=== PATIENT | male | born 1995 | race Caucasian/White ===

== ENCOUNTER 2018-09-21 18:31 | Emergency (ER) | payer MEDICAID ==
[2018-09-22 21:17] VITALS: BMI 21.3
== END 2018-09-21 18:54 | disposition left against medical advice (07) ==
LOC: D.ER 18:31
DX: R50.9 Fever, unspecified (principal); E87.6 Hypokalemia; R65.10 Systemic inflammatory response syndrome (SIRS) of non-infectious origin without acute organ dysfunction; I95.9 Hypotension, unspecified

== ENCOUNTER 2018-09-21 22:12 | Inpatient (IN) | payer MEDICAID ==
[~2018-09-21] VITALS: Ht 172.7 cm; Wt 63.6 kg
[2018-09-21 22:41] LABS: BASOPHILS 0 % (0-2); EOSINOPHILS 1.3 % (0-7); HEMATOCRIT 44.1 % (42.0-54.0); HEMOGLOBIN 14.7 g/dL (13.5-17.5); IMMATURE GRANULOCYTES 0.3 % (0-5); LYMPHOCYTES 10.2 % (15-50); MCH 28.8 pg (26.0-34.0); MCHC 33.3 g/dL (31.0-37.0); MCV 86.3 fL (80.0-100.0); MEAN PLATELET VOLUME 9.1 fL (7.4-10.4); NEUTROPHILS 87.2 % (40-80); RBC 5.11 10x6/uL (4.20-6.10)
[2018-09-21 22:42] LABS: PLATELET COUNT 164 10x3/uL (130-400)
[2018-09-21 22:42] LABS: APPEARANCE TURBID (CLEAR); BACTERIA FEW /hpf (NONE SEEN); BILIRUBIN NEGATIVE (NEGATIVE); COLOR RED (YELLOW); EPITHELIAL CELLS NSEEN /hpf (0-5); GLUCOSE NEGATIVE (NEGATIVE); KETONE NEGATIVE (NEGATIVE); NITRITE NEGATIVE (NEGATIVE); PROTEIN 2+ mg/dL (NEGATIVE); RED CELLS - URINE >50 /hpf (0-5); UROBILINOGEN NORMAL (NORMAL)
[2018-09-21 22:45] VITALS: BP 92/37
[2018-09-21 22:53] LABS: ALBUMIN 3.5 g/dL (3.4-5.0); ALKALINE PHOSPHATASE 145 U/L (46-116); ALT (SGPT) 22 U/L (10-68); BILIRUBIN - TOTAL 1.66 mg/dL (0.2-1.3); CALC OSMOLALITY 284 mosm/kg (275-300); CALCIUM 8.6 mg/dL (8.5-10.1); CARBON DIOXIDE 21.7 mmol/L (21.0-32.0); CHLORIDE - SERUM 106 mmol/L (98-107); CREATININE - SERUM 1.2 mg/dL (0.6-1.3); GLUCOSE 117 mg/dL (74-106); PROTEIN - SERUM 7.2 g/dL (6.4-8.2); SODIUM 142 mmol/L (136-145); UREA NITROGEN 16 mg/dL (7-18); eGFR NON AFRICAN AMERICAN 80 mL/min (90-120)
[2018-09-21 23:15] VITALS: BP 95/38
--- NOTE | 2018-09-21 23:15 | NUR ---
BLADDER SCAN PERFORMED ON PT, 95ML NOTED PER SCANNER. EDP NOTIFIED.
[2018-09-22] VITALS (21 sets, daily range): BP systolic 70–113; BP diastolic 33–83; Ht 172.7 cm; Wt 63.6 kg
--- NOTE | 2018-09-22 00:30 | NUR ---
CRITICAL LAB-LACTIC ACID 2.4. EDP NOTIFIED. SEPSIS PROTOCOL OF NS 30ML/KG INITIATED.
--- NOTE | 2018-09-22 00:55 | NUR ---
PT AND FAMILY UPDATED ON PLAN OF CARE.
--- NOTE | 2018-09-22 01:33 | NUR ---
PT FATHER NO LONGER AT BEDSIDE. PT FATHER, BIJU, . PT MOTHER, RENE, .
--- NOTE | 2018-09-22 02:02 | NUR ---
VANCOMYCIN INFUSION COMPLETE, SECOND NS BOLUS ALSO COMPLETE.
--- NOTE | 2018-09-22 03:00 | NUR ---
Received patient from ER to 2307, connected to monitor and positioned. Initial assessment completed per flowsheet, denies needs at this time. Dr Manning paged to notify regarding consult, all VSS and will continue to monitor.
--- NOTE | 2018-09-22 07:15 | NUR ---
REPORT RECIEVED, SHIFT ASSESSMENT COMPLETE, PT IS ALERT AND ORIENTED, ON RA WITH 97% O2 SAT. ALL PPP, VSS, CALL LIGHT IN REACH
--- NOTE | 2018-09-22 09:15 | NUR ---
DR. VALDES AT BEDSIDE, NEW ORDERS RECIEVED,
[2018-09-22 09:54] LABS: HEMATOCRIT 39.8 % (42.0-54.0); HEMOGLOBIN 13.1 g/dL (13.5-17.5); MCH 28.2 pg (26.0-34.0); MCHC 32.9 g/dL (31.0-37.0); MCV 85.8 fL (80.0-100.0); MEAN PLATELET VOLUME 9.6 fL (7.4-10.4); PLATELET COUNT 138 10x3/uL (130-400); RBC 4.64 10x6/uL (4.20-6.10); RDW 14.5 % (11.5-14.5); WBC 23.4 10x3/uL (4.8-10.8)
[2018-09-22 10:10] LABS: ANION GAP 18.5 mmol/L (8-16); BILIRUBIN - TOTAL 1.9 mg/dL (0.2-1.3); CALCIUM 7.4 mg/dL (8.5-10.1); CARBON DIOXIDE 17.5 mmol/L (21.0-32.0); CREATININE - SERUM 2.4 mg/dL (0.6-1.3); PROTEIN - SERUM 5.8 g/dL (6.4-8.2)
[2018-09-22 10:11] LABS: ALBUMIN 2.6 g/dL (3.4-5.0)
[2018-09-22 10:15] LABS: LYMPHOCYTES 4 % (15-50); MONOCYTES 5 % (2-11); NEUTROPHILS 62 % (40-80); PLATELET ESTIMATE NORMAL; PLATELET MORPHOLOGY GIANT PLTS PRESENT
--- NOTE | 2018-09-22 11:00 | NUR ---
PT TO CT AT THIS TIME,
--- NOTE | 2018-09-22 13:09 | NUR ---
PT RESTING COMFORTABLY AT THIS TIME, NO NEEDS NOTED, WILL CON'T TO MONITOR
--- NOTE | 2018-09-22 15:30 | NUR ---
CATHETER PULLED BACK 6CM PER DR. ELAM, PT TOLERATED WELL, DARK UOP NOTED
--- NOTE | 2018-09-22 16:43 | NUR ---
PT TRANFERRED TO ROOM 2235, TOLERATED WELL
--- NOTE | 2018-09-22 17:00 | NUR ---
PT ARRIVED TO UNIT FROM ICU, ORIENTED TO ROOM CL IN REACH FAMILY AT BEDSIDE, REQUESTING SOME ICE BROUGHT TO PT AT THIS TIME WILL CONTINUE TO MONITOR
[2018-09-23] VITALS (7 sets, daily range): BP systolic 84–110; BP diastolic 28–72
--- NOTE | 2018-09-23 02:18 | NUR ---
CALLED TO PATIENT ROOM BY ACCOUNT DEVELOPMENT SPECIALIST FOR REPORTED B/P OF 76/35, ASSESED PATIENT PATIENT STATED PAIN AT 1010, MAIUAL B/P TAKEN 74/[address] HUMPHREY ER TAKING CALL FOR [facility] RELAYED THAT B/P 76/35, TEMP 98.1, PULSE 135, RESP. 18 PULSE OX 99, B/P WAS 84/36 P. 137, AT 1630, P 124, B/P 96/57 AT 1600, AT 1500 IT WAS P 124, B/P 106/61. ORDER GIVEN FOR 250ML BOLUIS OF LR NOW AND 1000MG TYLENOL FOR HIS PAIN. BOUTH WERE GIVEN. RECHECK OF B/P AT 2330 P REPORTED 76/35 CHECKED MANIUAL WAS 74/48 CALLED [facility]APID RESPONSE ICU NURSE CAME STATED HE HAD HAD THIS PATIENT IN ICU AND THIS WAS HIS NORMAL B/P RECHECKED WAS 89/63, ICU NURSE ADVISED OK TO GIVE MORPHIN FOR PAIN. PAIN MEDICATION GIVEN PATIENT RESTING IN BED. NO NEEDS AT THIS TIME. PRN MORPHIN GIVEN FOR STATED PAIN OF 10/10.
--- NOTE | 2018-09-23 05:44 | NUR ---
B/P 84/ RECHECK MANIUAL /
[2018-09-23 06:45] LABS: ALBUMIN 2.3 g/dL (3.4-5.0); ANION GAP 15.6 mmol/L (8-16); BILIRUBIN - TOTAL 1.7 mg/dL (0.2-1.3); CALCIUM 7.2 mg/dL (8.5-10.1); CARBON DIOXIDE 19.1 mmol/L (21.0-32.0); PROTEIN - SERUM 5.3 g/dL (6.4-8.2)
[2018-09-23 06:55] LABS: BASOPHILS 0.1 % (0-2); EOSINOPHILS 0.1 % (0-7); HEMATOCRIT 35.4 % (42.0-54.0); HEMOGLOBIN 11.6 g/dL (13.5-17.5); IMMATURE GRANULOCYTES 1.8 % (0-5); LYMPHOCYTES 6.2 % (15-50); MCH 27.8 pg (26.0-34.0); MCHC 32.8 g/dL (31.0-37.0); MCV 84.9 fL (80.0-100.0); MONOCYTES 5.8 % (2-11); PLATELET COUNT 108 10x3/uL (130-400); RBC 4.17 10x6/uL (4.20-6.10); RDW 14.8 % (11.5-14.5); WBC 22.9 10x3/uL (4.8-10.8)
[2018-09-23 06:56] LABS: CREATININE - SERUM 3.4 mg/dL (0.6-1.3); POTASSIUM - SERUM 3.7 mmol/L (3.5-5.1)
--- NOTE | 2018-09-23 08:20 | NUR ---
PT SITTING UP IN BED. RESP EVEN AND UNLABORED. IV TO LEFT AC WITH LR @ 125ML/HR INFUSING VIA PUMP. SITE WITHOUT REDNESS OR EDEMA. SALINE LOCK TO RIGHT HAND, SITE WITHOUT REDNESS OR EDEMA. DENIES FURTHER NEEDS AT THIS TIME. CL WITHIN REACH. ENCOURAGED TO CALL WITH NEEDS. WILL CONTINUE TO MONITOR.
--- NOTE | 2018-09-23 13:24 | NUR ---
REQUESTED AND GIVNE 4MG ZOFRAN FOR C/O NAUSEA AND 4MG MORPHINE SLOW IVP FOR C/O PAIN LEVEL 8. WILL MONITOR.
--- NOTE | 2018-09-23 18:57 | NUR ---
WASH DRILLER COMPLETE. PT LYING IN BED. NO SINGS OF DISTRESS NOTED.
--- NOTE | 2018-09-23 23:43 | NUR ---
2000)rec'd. sitty up in bed dry heaving. no emesis.instructed too soon for zofran and pain med, requesting orange juice.instructed the acidity of orange juice can some times may cause nausea
[2018-09-24] VITALS (7 sets, daily range): BP systolic 105–128; BP diastolic 62–95
--- NOTE | 2018-09-24 01:34 | NUR ---
PT LYING IN BED ALERT AND ORIENTED. NO SIGNS OF DISTRESS. NO NEEDS AT THIS TIME. AGREE W/ PREPAROLE COUNSELING AIDE ASSESSMENT. CL IN REACH, WILL CONTINUE TO MONITOR
[2018-09-24 05:55] LABS: BASOPHILS 0.1 % (0-2); EOSINOPHILS 0.3 % (0-7); HEMATOCRIT 34.5 % (42.0-54.0); HEMOGLOBIN 11.3 g/dL (13.5-17.5); IMMATURE GRANULOCYTES 0.9 % (0-5); MCH 27.7 pg (26.0-34.0); MCHC 32.8 g/dL (31.0-37.0); MCV 84.6 fL (80.0-100.0); MEAN PLATELET VOLUME 10.1 fL (7.4-10.4); MONOCYTES 4.5 % (2-11); NEUTROPHILS 88.2 % (40-80); PLATELET COUNT 95 10x3/uL (130-400); RBC 4.08 10x6/uL (4.20-6.10); RDW 15.1 % (11.5-14.5)
[2018-09-24 06:17] LABS: WBC 14.9 10x3/uL (4.8-10.8)
[2018-09-24 06:24] LABS: ALBUMIN 2.2 g/dL (3.4-5.0); ANION GAP 17.8 mmol/L (8-16); BILIRUBIN - TOTAL 0.77 mg/dL (0.2-1.3); CARBON DIOXIDE 19.9 mmol/L (21.0-32.0); CREATININE - SERUM 3.3 mg/dL (0.6-1.3); POTASSIUM - SERUM 3.7 mmol/L (3.5-5.1); PROTEIN - SERUM 5.7 g/dL (6.4-8.2); VANCOMYCIN - RANDOM 17.9 ug/mL (10.0-20.0)
--- NOTE | 2018-09-24 07:20 | NUR ---
PT AAOX4 RESP EVEN AND NONLABORED, NO SIGNS OF DISTRESS NOTED, REQUESTING SOMETHING FOR NAUSEA, EXPRESSED TO PT THAT HE JUST HAD SOME ZOFRAN AT 0610 THIS MORNING, GAVE PT A WET TOWEL AND EMESIS BAG AT THIS TIME WILL CONTINUE TO MONITOR, CL IN REACH
[2018-09-24 07:57] LABS: PLATELET ESTIMATE DECREASED
--- NOTE | 2018-09-24 10:39 | MORECARE ---
CASE MANAGEMENT DISCHARGE SUMMARY PATIENT: SUKHDEEP MARTE UNIT: [id number] ADM DATE: 09/21/18 AGE: 22 : [birth year] SEX: M ROOM/BED: D.2235 AUTHOR: CAT GALICIA PHYSICIAN: REFERRING PHYSICIAN: BINTA VALDES MD DATE OF SERVICE: 09/24/18 Discharge Plan Patient Name: SUKHDEEP MARTE Facility: [facility]:[place] : 1995 Planned Disposition: Home Anticipated Discharge Date: Discharge Date: Expected LOS: Initial Reviewer: [email or web address] Initial Review Date: 09/24/2018 Generated: 09/24/18 11:38 am DCPIA - Discharge Planning Initial Assessment Updated by [email or web address]: Ariadne Watts on 09/24/18 10:38 am * Is the patient Alert and Oriented? Yes * How many steps to enter\\exit or inside your home? 0/0 * PCP Dr. Thrasher in [place] * [facility]acy [facility] in [place] * Preadmission Environment Home with Family * ADLs Partial Dependent * Partial ADLs (Assistance needed) Ambulation * Equipment Hospital Bed Other Shower Chair Wheelchair * Other Equipment "I have everything I need" * List name and contact numbers for known caregivers / representatives who currently or will assist patient after discharge: Kota Marte [facility] - [phone] Brittney [facility] - [phone] * Verbal permission to speak to the caregivers and representatives has been obtained from the patient. Yes * Community resources currently utilized None * Additional services required to return to the preadmission environment? No * Can the patient safely return to the preadmission environment? Yes * Has this patient been hospitalized within the prior 30 days at any hospital? No Patient Name: SUKHDEEP MARTE Page [id number] at 1039 All edits/amendments must be made on the electronic document DICTATION DATE: 09/24/18 1038 SAP BUSINESS INTELLIGENCE CONSULTANT: EVITA 09/24/18 1038 RPT#: [id number] DC DATE: STATUS: ADM IN [facility] [address] [place] [address] END OF REPORT
--- NOTE | 2018-09-24 10:48 | MORECARE ---
CASE MANAGEMENT DISCHARGE SUMMARY PATIENT: SUKHDEEP MARTE UNIT: [id number] ADM DATE: 09/21/18 AGE: 22 : [birth year] SEX: M ROOM/BED: D.2235 AUTHOR: GRAYSON,DOC PHYSICIAN: REFERRING PHYSICIAN: BINTA VALDES MD DATE OF SERVICE: 09/24/18 Discharge Plan Patient Name: SUKHDEEP MARTE Facility: [facility]:[place] : 1995 Planned Disposition: Home Anticipated Discharge Date: Discharge Date: Expected LOS: Initial Reviewer: [email or web address] Initial Review Date: 09/24/2018 Generated: 09/24/18 11:47 am Comments DCP- Discharge Planning Updated by [email or web address]: Ariadne Watts on 09/24/18 9:[address] Patient Name: SUKHDEEP MARTE Admission Status: ER Accout number: [id number] Admission Date: 09-21-2018 : 1995 Admission Diagnosis: Attending: BINTA VALDES Current LOS: 3 Anticipated DC Date: Planned Disposition: Home Primary Insurance: MEDICAID [place] Discharge Planning Comments: CM met with patient to discuss discharge planning, he is alone in the room. He lives with his parents in [place]. His [address] is [address] I have faxed a corrected face sheet to admissions. He states he has all the DME at home he needs. States his father will drive him home on discharge. States he self propels in his wheelchair. Declines need for home health. States he goes to a urologist in [place] to have his suprapubic catheter changed. No needs currently identified. CM will continue to follow and assist with discharge planning/needs. Legal Transcriptionist: Ariadne Watts DCPIA - Discharge Planning Initial Assessment Updated by [email or web address]: Ariadne Watts on 09/24/18 10:38 am * Is the patient Alert and Oriented? Yes * How many steps to enter\\exit or inside your home? 0/0 * PCP Dr. Thrasher in [place] * Pharmacy [facility] in [place] * Preadmission Environment Home with Family * ADLs Partial Dependent * Partial ADLs (Assistance needed) Ambulation * Equipment Hospital Bed Other Shower Chair Wheelchair * Other Equipment "I have everything I need" * List name and contact numbers for known caregivers / representatives who currently or will assist patient after discharge: Kota Marte - [facility] - [phone] Brittney [facility] - [phone] * Verbal permission to speak to the caregivers and representatives has been obtained from the patient. Yes * Community resources currently utilized None * Additional services required to return to the preadmission environment? No * Can the patient safely return to the preadmission environment? Yes * Has this patient been hospitalized within the prior 30 days at any hospital? No Last DP export: 09/24/18 9:38 a Patient Name: SUKHDEEP MARTE Page [phone] at 1048 All edits/amendments must be made on the electronic document DICTATION DATE: 09/24/181046 BUS VAN DRIVER: EVITA 09/24/18 1047 RPT#: [id number] [place] DATE: STATUS: ADM IN [facility] [address] [place] [address] END OF REPORT
--- NOTE | 2018-09-24 20:30 | NUR ---
PT RESTING IN BED. ALERT AND ORIENTED. PT STATES NO PROBLEMS AT THI TIME.
--- NOTE | 2018-09-25 03:12 | NUR ---
EYES CLOSED RESPIRATIONS WITH EASE AND UNLABORED. SR UP X2 CALL LIGHT WITHIN REACH.
[2018-09-25 04:33] VITALS: BP 135/90
[2018-09-25 06:13] LABS: BASOPHILS 0.1 % (0-2); EOSINOPHILS 0 % (0-7); HEMATOCRIT 37.2 % (42.0-54.0); HEMOGLOBIN 12.1 g/dL (13.5-17.5); IMMATURE GRANULOCYTES 0.7 % (0-5); LYMPHOCYTES 4.9 % (15-50); MCH 27.8 pg (26.0-34.0); MCHC 32.5 g/dL (31.0-37.0); MCV 85.5 fL (80.0-100.0); MEAN PLATELET VOLUME 11.4 fL (7.4-10.4); MONOCYTES 4.4 % (2-11); NEUTROPHILS 89.9 % (40-80); RBC 4.35 10x6/uL (4.20-6.10); RDW 15.2 % (11.5-14.5); WBC 16.7 10x3/uL (4.8-10.8)
[2018-09-25 06:18] LABS: PLATELET COUNT 131 10x3/uL (130-400)
[2018-09-25 06:48] LABS: ALBUMIN 2.3 g/dL (3.4-5.0); ANION GAP 18.1 mmol/L (8-16); BILIRUBIN - TOTAL 0.38 mg/dL (0.2-1.3); CALCIUM 7.8 mg/dL (8.5-10.1); CARBON DIOXIDE 18.8 mmol/L (21.0-32.0); CREATININE - SERUM 2.7 mg/dL (0.6-1.3); POTASSIUM - SERUM 3.9 mmol/L (3.5-5.1); PROTEIN - SERUM 5.4 g/dL (6.4-8.2)
--- NOTE | 2018-09-25 08:26 | OP ---
PATIENT NAME: SUKHDEEP BATRES MEDICAL RECORD: [id number] :[birth year] LOCATION:D.MS [address] ADMISSION DATE:09/21/18 SURGEON: GUME BURGOS MD DATE OF OPERATION: 09/24/2018 SURGEON: Gume Burgos MD ANESTHESIA: General anesthesia by Zac Orozco CRNA. DIAGNOSES: Cystitis, left pyelonephritis, infected left ureteral stent, infected suprapubic tube. PROCEDURES: Cystoscopy, left retrograde pyelogram, exchange of 26-Chinese x 22 cm left ureteral stent without string attached and change of the suprapubic tube to an 18-Chinese silicone tube. FINDINGS: Urethral trauma from a previous Rangel catheter balloon inflation in the urethra. A retrograde pyelogram showed left hydroureteronephrosis all the way down to the UV junction. The patient has fecal incontinence. BLOOD LOSS: None. CLINICAL HISTORY: This is a 22-year-old male with spina bifida. He has a neurogenic bladder. He has bilateral hydroureteronephrosis. He has a urologist in [place]. This urologist has been managing him with every monthly changes of an indwelling left ureteral stent. I am not sure why the left ureter was chosen for this treatment and not also the right. Personally, I would not have a stent in there at all and I would treat the hypertonic bladder with intravesical Botox injection to try to resolve the hydronephrosis. However, I did not wish to contraindicate what his current urologist is doing as the patient is insistent that he needs to have a left ureteral stent in there at all times. Therefore, since he is infected and he is currently on IV antibiotics, we are now arranging to change his left ureteral stent and his suprapubic tube. He is on IV Levaquin and vancomycin. His urine and blood cultures are growing E. coli and a gram-positive organism. Since he is already on IV antibiotics on the floor, we did not give him any further IV antibiotics. DESCRIPTION OF PROCEDURE: The patient was placed in supine position on the table. He was given induction of general anesthesia. We then placed his atrophic legs into stirrups. The perineum as well as the suprapubic area was prepped and draped. The patient has latex allergy. Cystoscopy was performed using a 21-Chinese cystoscope. The area of urethral trauma where a previous suprapubic catheter had gone down the urethra and had the balloon inadvertently inflated in the urethra was noted. This had been done at the Emergency Room at [facility]. We navigated into the bladder. The old ureteral stent was seen. It was yellow in color. Grasping forceps were placed around the stent and it was removed entirely. It will be sent to pathology for identification. An open-ended ureteral catheter was then inserted into the left ureteral orifice. We performed a retrograde pyelogram. No filling defects were seen. 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 We then inserted a Sensor wire up into the left renal pelvis. Once the wire was in position, the open-ended ureteral catheter was removed entirely. Over the wire, we inserted the 6-Chinese x 22 cm ureteral stent. Once the stent was in correct position, the wire was withdrawn entirely. The distal end of the stent was OPERATIVE REPORT [id number] SUKHDEEP BATRES pushed into the bladder using the pusher. We then turned the scope and looked up in anterior wall of the bladder. Here, we could see the suprapubic tube in good position with a lot of debris attached to it. The old suprapubic tube balloon was deflated and the tube was entirely removed. A brand new 18-Chinese silicone catheter was inserted into the suprapubic tube tract. Under direct vision with the scope, we could see the catheter enter into the bladder. The balloon was then inflated with 10 cc of sterile water. It was located in good position. The scope was then removed. The patient had the suprapubic tube put to bag drainage. He is planning to return to his urologist in [place] for future management. TRANSINT:[id number] Voice Confirmation ID: [id number] DOCUMENT ID: [id number] GUME BURGOS MD at 0826 CC: [id number] DICTATION DATE: 09/24/18 1459 INDUSTRIAL RELATIONS ANALYST: 09/24/18 1554 ADM IN [facility] [address] [place] [address]
[2018-09-25 09:00] VITALS: BP 134/90
[2018-09-25 13:56] VITALS: BP 122/87
--- NOTE | 2018-09-25 15:55 | MORECARE ---
CASE MANAGEMENT DISCHARGE SUMMARY PATIENT: SUKHDEEP MARTE UNIT: [id number] ADM DATE: 09/21/18 AGE: 22 : [birth year] SEX: M ROOM/BED: D.2235 AUTHOR: GRAYSON,DOC PHYSICIAN: REFERRING PHYSICIAN: BINTA VALDES MD DATE OF SERVICE: 09/25/18 Discharge Plan Patient Name: SUKHDEEP MARTE Facility: [facility]:[place] : 1995 Planned Disposition: Home Anticipated Discharge Date: Discharge Date: Expected LOS: Initial Reviewer: [email or web address] Initial Review Date: 09/24/2018 Generated: 09/25/18 4:55 pm Comments DCP- Discharge Planning Updated by [email or web address]: Ariadne Watts on 09/25/18 2:[address] Met with patient about home health services in [facility] [place]. He states he will need to talk to his dad and let me know which one to use. I left him my phone number to call me when he has picked out a home health. Explained he will need IV antibiotics post discharge. CM will continue to follow and assist with discharge planning/needs. DCP- Discharge Planning Updated by [email or web address]: Ariadne Watts on 09/24/18 9:[address] Patient Name: SUKHDEEP MARTE Admission Status: ER Accout number: [id number] Admission Date: 09-21-2018 : 1995 Admission Diagnosis: Attending: BINTA VALDES Current LOS: 3 Anticipated DC Date: Planned Disposition: Home Primary Insurance: MEDICAID [place] Discharge Planning Comments: CM met with patient to discuss discharge planning, he is alone in the room. He lives with his parents in [place]. His address is [address] I have faxed a corrected face sheet to admissions. He states he has all the DME at home he needs. States his father will drive him home on discharge. States he self propels in his wheelchair. Declines need for home health. States he goes to a urologist in [place] to have his suprapubic catheter changed. No needs currently identified. CM will continue to follow and assist with discharge planning/needs. Granulator: Ariadne Watts DCPIA - Discharge Planning Initial Assessment Updated by [email or web address]: Ariadne Watts on 09/24/18 10:38 am * Is the patient Alert and Oriented? Yes * How many steps to enter\\exit or inside your home? 0/0 * PCP Dr. Thrasher in [place] * Pharmacy [facility] in [place] * Preadmission Environment Home with Family * ADLs Partial Dependent * Partial ADLs (Assistance needed) Ambulation * Equipment Hospital Bed Other Shower Chair Wheelchair * Other Equipment "I have everything I need" * List name and contact numbers for known caregivers / representatives who currently or will assist patient after discharge: Kota Marte father - [phone] Brittney - mom - [phone] * Verbal permission to speak to the caregivers and representatives has been obtained from the patient. Yes * Community resources currently utilized None * Additional services required to return to the preadmission environment? No * Can the patient safely return to the preadmission environment? Yes * Has this patient been hospitalized within the prior 30 days at any hospital? No Last DP export: 09/24/18 9:48 a Patient Name: SUKHDEEP MARTE Page [id number] at 1555 All edits/amendments must be made on the electronic document DICTATION DATE: 09/25/181553 CERAMIC COATER: EVITA 09/25/181553 RPT#: [id number] DC DATE: STATUS: ADM IN [facility] [address] [place] [address] END OF REPORT
[2018-09-25 17:12] VITALS: BP 134/94
[2018-09-26 05:57] LABS: BASOPHILS 0.1 % (0-2); HEMATOCRIT 36.7 % (42.0-54.0); LYMPHOCYTES 20.1 % (15-50); MCH 27.5 pg (26.0-34.0); MCHC 32.7 g/dL (31.0-37.0); MCV 84.2 fL (80.0-100.0); MEAN PLATELET VOLUME 10.6 fL (7.4-10.4); MONOCYTES 10.7 % (2-11); NEUTROPHILS 67.1 % (40-80); PLATELET COUNT 144 10x3/uL (130-400); RBC 4.36 10x6/uL (4.20-6.10); RDW 15.1 % (11.5-14.5)
[2018-09-26 06:23] LABS: ALBUMIN 2.1 g/dL (3.4-5.0); BILIRUBIN - TOTAL 0.19 mg/dL (0.2-1.3); CALCIUM 7.4 mg/dL (8.5-10.1); CARBON DIOXIDE 22.8 mmol/L (21.0-32.0); PROTEIN - SERUM 5.6 g/dL (6.4-8.2)
[2018-09-26 06:28] LABS: ANION GAP 15.5 mmol/L (8-16); POTASSIUM - SERUM 3.3 mmol/L (3.5-5.1)
[2018-09-26 06:36] LABS: WBC 10.5 10x3/uL (4.8-10.8)
[2018-09-26 08:46] VITALS: BP 144/56
--- NOTE | 2018-09-26 11:09 | MORECARE ---
CASE MANAGEMENT DISCHARGE SUMMARY PATIENT: SUKHDEEP MARTE UNIT: [id number] ADM DATE: 09/21/18 AGE: 22 : [birth year] SEX: M ROOM/BED: D.2235 AUTHOR: GRAYSON,DOC PHYSICIAN: REFERRING PHYSICIAN: BINTA VALDES MD DATE OF SERVICE: 09/26/18 Discharge Plan Patient Name: SUKHDEEP MARTE Facility: [facility]:[place] : 1995 Planned Disposition: Home Anticipated Discharge Date: Discharge Date: Expected LOS: Initial Reviewer: [email or web address] Initial Review Date: 09/24/2018 Generated: 09/26/18 12:08 pm Comments DCP- Discharge Planning Updated by [email or web address]: Ariadne Watts on 09/25/18 2:[address] Met with patient about home health services in [facility]. He states he will need to talk to his dad and let me know which one to use. I left him my phone number to call me when he has picked out a home health. Explained he will need IV antibiotics post discharge. CM will continue to follow and assist with discharge planning/needs. DCP- Discharge Planning Updated by [email or web address]: Ariadne Watts on 09/24/18 9:[address] Patient Name: SUKHDEEP MARTE Admission Status: ER Accout number: [id number] Admission Date: 09-21-2018 : 1995 Admission Diagnosis: Attending: BINTA VALDES Current LOS: 3 Anticipated DC Date: Planned Disposition: Home Primary Insurance: MEDICAID [place] Discharge Planning Comments: CM met with patient to discuss discharge planning, he is alone in the room. He lives with his parents in [place]. His address is [address] I have faxed a corrected face sheet to admissions. He states he has all the DME at home he needs. States his father will drive him home on discharge. States he self propels in his wheelchair. Declines need for home health. States he goes to a urologist in [place] to have his suprapubic catheter changed. No needs currently identified. CM will continue to follow and assist with discharge planning/needs. Building Service Worker: Ariadne Watts DCPIA - Discharge Planning Initial Assessment Updated by [email or web address]: Ariadne Watts on 09/24/18 10:38 am * Is the patient Alert and Oriented? Yes * How many steps to enter\\exit or inside your home? 0/0 * PCP Dr. Thrasher in [place] * [facility]acy [facility] in [place] * Preadmission Environment Home with Family * ADLs Partial Dependent * Partial ADLs (Assistance needed) Ambulation * Equipment Hospital Bed Other Shower Chair Wheelchair * Other Equipment "I have everything I need" * List name and contact numbers for known caregivers / representatives who currently or will assist patient after discharge: Kota Marte father - [phone] [facility] [phone] * Verbal permission to speak to the caregivers and representatives has been obtained from the patient. Yes * Community resources currently utilized None * Additional services required to return to the preadmission environment? No * Can the patient safely return to the preadmission environment? Yes * Has this patient been hospitalized within the prior 30 days at any hospital? No External Providers External Provider: OTHER-OTHER Next Contact Date: Service Request Date: Service Type: Resolution: Reviewer: Comments: Last DP export: 09/25/18 2:55 p Patient Name: SUKHDEEP MARTE Page [id number] at 1109 All edits/amendments must be made on the electronic document DICTATION DATE: 09/26/181107 FIBERGLASS DOWEL DRAWING OPERATOR: EVITA 09/26/181107 RPT#: [id number] MT DATE: STATUS: ADM IN [facility] [address] [place] [address] END OF REPORT
--- NOTE | 2018-09-26 11:17 | MORECARE ---
CASE MANAGEMENT DISCHARGE SUMMARY PATIENT: SUKHDEEP MARTE UNIT: [id number] ADM DATE: 09/21/18 AGE: 22 : [birth year] SEX: M ROOM/BED: D.2235 AUTHOR: GRAYSON,DOC PHYSICIAN: REFERRING PHYSICIAN: BINTA VALDES MD DATE OF SERVICE: 09/26/18 Discharge Plan Patient Name: SUKHDEEP MARTE Facility: [facility]:[place] : 1995 Planned Disposition: Home Anticipated Discharge Date: Discharge Date: Expected LOS: Initial Reviewer: [email or web address] Initial Review Date: 09/24/2018 Generated: 09/26/18 12:16 pm Comments DCP- Discharge Planning Updated by [email or web address]: Ariadne Watts on 09/26/18 10:[address] Met with patient, he is in agreement to [facility] in [place]. He and his mother state that they will need the most economical company for IV company. I will mancilla that out and give them a quote. I called and spoke to Gisselle at [facility] in [place] and clinical faxed. Gisselle states they do have a Medicaid slot available. CM will continue to follow and assist with discharge planning/needs. [facility] in [place]: Gisselle DCP- Discharge Planning Updated by [email or web address]: Ariadne Watts on 09/25/18 2:[address] Met with patient about home health services in [facility]. He states he will need to talk to his dad and let me know which one to use. I left him my phone number to call me when he has picked out a home health. Explained he will need IV antibiotics post discharge. CM will continue to follow and assist with discharge planning/needs. DCP- Discharge Planning Updated by [email or web address]: Ariadne Watts on 09/24/18 9:[address] Patient Name: SUKHDEEP MARTE Admission Status: ER Accout number: [id number] Admission Date: 09-21-2018 : 1995 Admission Diagnosis: Attending: BINTA VALDES Current LOS: 3 Anticipated DC Date: Planned Disposition: Home Primary Insurance: MEDICAID [place] Discharge Planning Comments: CM met with patient to discuss discharge planning, he is alone in the room. He lives with his parents in [place]. His [address] is [address] I have faxed a corrected face sheet to admissions. He states he has all the DME at home he needs. States his father will drive him home on discharge. States he self propels in his wheelchair. Declines need for home health. States he goes to a urologist in [place] to have his suprapubic catheter changed. No needs currently identified. CM will continue to follow and assist with discharge planning/needs. Senior Facilities Manager: Ariadne Watts [facility] - Discharge Planning Initial Assessment Updated by [email or web address]: Ariadne Watts on 09/24/18 10:38 am * Is the patient Alert and Oriented? Yes * How many steps to enter\\exit or inside your home? 0/0 * PCP Dr. Thrasher in [place] * Pharmacy [facility] in [place] * Preadmission Environment Home with Family * ADLs Partial Dependent * Partial ADLs (Assistance needed) Ambulation * Equipment Hospital Bed Other Shower Chair Wheelchair * Other Equipment "I have everything I need" * List name and contact numbers for known caregivers / representatives who currently or will assist patient after discharge: Kota Marte - father - [phone] Brittney - mom - [phone] * Verbal permission to speak to the caregivers and representatives has been obtained from the patient. Yes * Community resources currently utilized None * Additional services required to return to the preadmission environment? No * Can the patient safely return to the preadmission environment? Yes * Has this patient been hospitalized within the prior 30 days at any hospital? No Last DP export: 09/26/18 10:08 a Patient Name: SUKHDEEP MARTE Page 70232 at 1117 All edits/amendments must be made on the electronic document DICTATION DATE: 09/26/181115 EPIC CUPID ANALYST: EVITA 09/26/181115 RPT#: [id number] NC DATE: STATUS: ADM IN [facility] [address] [place] [address] END OF REPORT
[2018-09-26 12:46] VITALS: BP 143/101
--- NOTE | 2018-09-26 14:05 | MORECARE ---
CASE MANAGEMENT DISCHARGE SUMMARY PATIENT: SUKHDEEP MARTE UNIT: [id number] ADM DATE: 09/21/18 AGE: 22 : [birth year] SEX: M ROOM/BED: D.2235 AUTHOR: GRAYSON,DOC PHYSICIAN: REFERRING PHYSICIAN: BINTA VALDES MD DATE OF SERVICE: 09/26/18 Discharge Plan Patient Name: SUKHDEEP MARTE Facility: [facility]:[place] : 1995 Planned Disposition: Home Anticipated Discharge Date: Discharge Date: Expected LOS: Initial Reviewer: [email or web address] Initial Review Date: 09/24/2018 Generated: 09/26/18 3:05 pm Comments DCP- Discharge Planning Updated by [email or web address]: Ariadne Watts on 09/26/18 1:[address] I called Gisselle with [facility] and informed her Dr. Thrasher was patient's PCP. I also informed her again that we do not have a specific order written yet for home antibiotics, I spoke with Dr. Prakash and she may have a plan tomorrow after monitoring clinical response to therapy. CM will continue to follow and assist with discharge planning/needs. DCP- Discharge Planning Updated by [email or web address]: Ariadne Watts on 09/26/18 10:[address] Met with patient, he is in agreement to [facility] in [place]. He and his mother state that they will need the most economical company for IV company. I will mancilla that out and give them a quote. I called and spoke to Gisselle at [facility] in [place] and clinical faxed. Gisselle states they do have a Medicaid slot available. CM will continue to follow and assist with discharge planning/needs. [facility] in [place]: Gisselle DCP- Discharge Planning Updated by [email or web address]: Ariadne Watts on 09/25/18 2:[address] Met with patient about home health services in [facility]. He states he will need to talk to his dad and let me know which one to use. I left him my phone number to call me when he has picked out a home health. Explained he will need IV antibiotics post discharge. CM will continue to follow and assist with discharge planning/needs. DCP- Discharge Planning Updated by [email or web address]: Ariadne Gileslucie on 09/24/18 9:[address] Patient Name: SUKHDEEP MARTE Admission Status: ER Accout number: [id number] Admission Date: 09-21-2018 : 1995 Admission Diagnosis: Attending: BINTA VALDES Current LOS: 3 Anticipated DC Date: Planned Disposition: Home Primary Insurance: MEDICAID [place] Discharge Planning Comments: CM met with patient to discuss discharge planning, he is alone in the room. He lives with his parents in [place]. His address is [address] I have faxed a corrected face sheet to admissions. He states he has all the DME at home he needs. States his father will drive him home on discharge. States he self propels in his wheelchair. Declines need for home health. States he goes to a urologist in [place] to have his suprapubic catheter changed. No needs currently identified. CM will continue to follow and assist with discharge planning/needs. Logistics Engineering Manager: Ariadne Mac DCP[facility] - Discharge Planning Initial Assessment Updated by [email or web address]: Ariadne Watts on 09/24/18 10:38 am * Is the patient Alert and Oriented? Yes * How many steps to enter\\exit or inside your home? 0/0 * PCP Dr. Thrasher in [place] * Pharmacy [facility] in [place] * Preadmission Environment Home with Family * ADLs Partial Dependent * Partial ADLs (Assistance needed) Ambulation * Equipment Hospital Bed Other Shower Chair Wheelchair * Other Equipment "I have everything I need" * List name and contact numbers for known caregivers / representatives who currently or will assist patient after discharge: Kota Marte - father - [phone] [facility] mom - [phone] * Verbal permission to speak to the caregivers and representatives has been obtained from the patient. Yes * Community resources currently utilized None * Additional services required to return to the preadmission environment? No * Can the patient safely return to the preadmission environment? Yes * Has this patient been hospitalized within the prior 30 days at any hospital? No Last DP export: 09/26/18 10:17 a Patient Name: SUKHDEEP MARTE Page 65929 at 1405 All edits/amendments must be made on the electronic document DICTATION DATE: 09/26/181404 PHARMACY DISTRICT MANAGER: EVITA 09/26/181404 RPT#: [id number] DC DATE: STATUS: ADM IN [facility] [address] [place] [address] END OF REPORT
[2018-09-26 21:37] VITALS: BP 139/101
[2018-09-27 04:51] LABS: BASOPHILS 0.3 % (0-2); EOSINOPHILS 2.5 % (0-7); HEMATOCRIT 38.3 % (42.0-54.0); HEMOGLOBIN 12.7 g/dL (13.5-17.5); LYMPHOCYTES 28.3 % (15-50); MCH 27.9 pg (26.0-34.0); MCHC 33.2 g/dL (31.0-37.0); MEAN PLATELET VOLUME 10.2 fL (7.4-10.4); MONOCYTES 12.8 % (2-11); NEUTROPHILS 54.1 % (40-80); PLATELET COUNT 163 10x3/uL (130-400); RBC 4.56 10x6/uL (4.20-6.10); RDW 15.1 % (11.5-14.5); WBC 9.1 10x3/uL (4.8-10.8)
[2018-09-27 05:01] VITALS: BP 117/72
[2018-09-27 05:11] LABS: ALBUMIN 2.2 g/dL (3.4-5.0); ANION GAP 16.5 mmol/L (8-16); BILIRUBIN - TOTAL 0.46 mg/dL (0.2-1.3); CALCIUM 7.1 mg/dL (8.5-10.1); CARBON DIOXIDE 24.7 mmol/L (21.0-32.0); CREATININE - SERUM 1.8 mg/dL (0.6-1.3); POTASSIUM - SERUM 3.2 mmol/L (3.5-5.1); PROTEIN - SERUM 6.1 g/dL (6.4-8.2)
[2018-09-27 10:04] VITALS: BP 132/95; BP 141/94
--- NOTE | 2018-09-27 13:12 | NUR ---
ALERT AND ORIENTED AND COMPLAINING OF FLANK PAIN WITH ZOFRAN GIVEN FOR NAUSEA AND FENTANYL PATCH FOR PAIN WITH PATIENT STILL COMPLAINING OF BOTH. WILL NOTIFY MD OF CONDITION. ENCOURAGED TO USE CALL LIGHT FOR ASSIST.
--- NOTE | 2018-09-27 13:38 | MORECARE ---
CASE MANAGEMENT DISCHARGE SUMMARY PATIENT: SUKHDEEP MARTE UNIT: [id number] ADM DATE: 09/21/18 AGE: 22 : [birth year] SEX: M ROOM/BED: D.2235 AUTHOR: GRAYSON,DOC PHYSICIAN: REFERRING PHYSICIAN: BINTA VALDES MD DATE OF SERVICE: 09/27/18 Discharge Plan Patient Name: SUKHDEEP MARTE Facility: [facility]:[place] : 1995 Planned Disposition: Home Anticipated Discharge Date: Discharge Date: Expected LOS: Initial Reviewer: [email or web address] Initial Review Date: 09/24/2018 Generated: 09/27/18 2:38 pm Comments DCP- Discharge Planning Updated by [email or web address]: Ariadne Watts on 09/26/18 1:[address] I called Gisselle with [facility] and informed her Dr. Thrasher was patient's PCP. I also informed her again that we do not have a specific order written yet for home antibiotics, I spoke with Dr. Prakash and she may have a plan tomorrow after monitoring clinical response to therapy. CM will continue to follow and assist with discharge planning/needs. DCP- Discharge Planning Updated by [email or web address]: Ariadne Watts on 09/26/18 10:[address] Met with patient, he is in agreement to [facility] in [place]. He and his mother state that they will need the most economical company for IV company. I will mancilla that out and give them a quote. I called and spoke to Gisselle at [facility] in [place] and clinical faxed. Gisselle states they do have a Medicaid slot available. CM will continue to follow and assist with discharge planning/needs. [facility] in [place]: Gisselle DCP- Discharge Planning Updated by [email or web address]: Ariadne Watts on 09/25/18 2:[address] Met with patient about home health services in [facility]. He states he will need to talk to his dad and let me know which one to use. I left him my phone number to call me when he has picked out a home health. Explained he will need IV antibiotics post discharge. CM will continue to follow and assist with discharge planning/needs. DCP- Discharge Planning Updated by [email or web address]: Ariadne Gileslucie on 09/24/18 9:[address] Patient Name: SUKHDEEP MARTE Admission Status: ER Accout number: [id number] Admission Date: 09-21-2018 : 1995 Admission Diagnosis: Attending: BINTA VALDES Current LOS: 3 Anticipated DC Date: Planned Disposition: Home Primary Insurance: MEDICAID [place] Discharge Planning Comments: CM met with patient to discuss discharge planning, he is alone in the room. He lives with his parents in [place]. His address is [address] I have faxed a corrected face sheet to admissions. He states he has all the DME at home he needs. States his father will drive him home on discharge. States he self propels in his wheelchair. Declines need for home health. States he goes to a urologist in [place] to have his suprapubic catheter changed. No needs currently identified. CM will continue to follow and assist with discharge planning/needs. Ultimate Hoops Referee: Ariadne Mac DCPIA - Discharge Planning Initial Assessment Updated by [email or web address]: Ariadne Mac on 09/24/18 10:38 am * Is the patient Alert and Oriented? Yes * How many steps to enter\\exit or inside your home? 0/0 * PCP Dr. Thrasher in [place] * Pharmacy [facility] in [place] * Preadmission Environment Home with Family * ADLs Partial Dependent * Partial ADLs (Assistance needed) Ambulation * Equipment Hospital Bed Other Shower Chair Wheelchair * Other Equipment "I have everything I need" * List name and contact numbers for known caregivers / representatives who currently or will assist patient after discharge: Kota Marte - father - [phone] [facility] - [phone] * Verbal permission to speak to the caregivers and representatives has been obtained from the patient. Yes * Community resources currently utilized None * Additional services required to return to the preadmission environment? No * Can the patient safely return to the preadmission environment? Yes * Has this patient been hospitalized within the prior 30 days at any hospital? No External Providers External Provider: [facility] Next Contact Date: Service Request Date: Service Type: Resolution: Reviewer: Comments: External Provider: [facility] Next Contact Date: Service Request Date: Service Type: Resolution: Reviewer: Comments: Last DP export: 09/26/18 1:05 p Patient Name: SUKHDEEP MARTE Page 58528 at 1338 All edits/amendments must be made on the electronic document DICTATION DATE: 09/27/181336 CLINICAL BUSINESS ANALYST: EVITA 09/27/181336 RPT#: [id number] DC DATE: STATUS: ADM IN [facility] [address] [place] [address] END OF REPORT
--- NOTE | 2018-09-27 13:40 | NUR ---
NURSE PRACTICIONER NOTIFIED OF PAIN AND STATED WOULDE REVIEW FOR FURTHER ORDERS.
--- NOTE | 2018-09-27 13:48 | MORECARE ---
CASE MANAGEMENT DISCHARGE SUMMARY PATIENT: SUKHDEEP MARTE UNIT: [id number] ADM DATE: 09/21/18 AGE: 22 : [birth year] SEX: M ROOM/BED: D.2235 AUTHOR: GRAYSON,DOC PHYSICIAN: REFERRING PHYSICIAN: BINTA VALDES MD DATE OF SERVICE: 09/27/18 Discharge Plan Patient Name: SUKHDEEP MARTE Facility: [facility]:[place] : 1995 Planned Disposition: Home Anticipated Discharge Date: Discharge Date: Expected LOS: Initial Reviewer: [email or web address] Initial Review Date: 09/24/2018 Generated: 09/27/18 2:47 pm Comments DCP- Discharge Planning Updated by [email or web address]: Ariadne Watts on 09/27/18 12:[address] IV antibiotic order received from Dr. Prakash's office nurse. I faxed it to [place] and [place] and spoke to Liana for mancilla quotes. I faxed order to [facility] in [place] and spoke with Loren, they can see in am if discharged today for next dose of rocephin. CM will continue to follow and assist with discharge planning/needs. DCP- Discharge Planning Updated by [email or web address]: Ariadne Watts on 09/26/18 1:[address] I called Gisselle with [facility] and informed her Dr. Thrasher was patient's PCP. I also informed her again that we do not have a specific order written yet for home antibiotics, I spoke with Dr. Prakash and she may have a plan tomorrow after monitoring clinical response to therapy. CM will continue to follow and assist with discharge planning/needs. DCP- Discharge Planning Updated by [id number]: Ariadne Watts on 09/26/18 10:[address] Met with patient, he is in agreement to [facility] in [place]. He and his mother state that they will need the most economical company for IV company. I will mancilla that out and give them a quote. I called and spoke to Gisselle at [facility] in [place] and clinical faxed. Gisselle states they do have a Medicaid slot available. CM will continue to follow and assist with discharge planning/needs. [facility] in [place]: Gisselle DCP- Discharge Planning Updated by [email or web address]: Ariadne Watts on 09/25/18 2:[address] Met with patient about home health services in [facility]. He states he will need to talk to his dad and let me know which one to use. I left him my phone number to call me when he has picked out a home health. Explained he will need IV antibiotics post discharge. CM will continue to follow and assist with discharge planning/needs. DCP- Discharge Planning Updated by [email or web address]: Ariadne Watts on 09/24/18 9:[address] Patient Name: SUKHDEEP MARTE Admission Status: ER Accout number: [id number] Admission Date: 09-21-2018 : 1995 Admission Diagnosis: Attending: BINTA VALDES Current LOS: 3 Anticipated DC Date: Planned Disposition: Home Primary Insurance: [place]ID [place] Discharge Planning Comments: CM met with patient to discuss discharge planning, he is alone in the room. He lives with his parents in [place]. His address is [address]. I have faxed a corrected face sheet to admissions. He states he has all the DME at home he needs. States his father will drive him home on discharge. States he self propels in his wheelchair. Declines need for home health. States he goes to a urologist in [place] to have his suprapubic catheter changed. No needs currently identified. CM will continue to follow and assist with discharge planning/needs. Post Anesthesia Nurse: Ariadne Watts DCPIA - Discharge Planning Initial Assessment Updated by [email or web address]: Ariadne Watts on 09/24/18 10:38 am * Is the patient Alert and Oriented? Yes * How many steps to enter\\exit or inside your home? 0/0 * PCP Dr. Thrasher in [place] * Pharmacy [facility] in [place] * Preadmission Environment Home with Family * ADLs Partial Dependent * Partial ADLs (Assistance needed) Ambulation * Equipment Hospital Bed Other Shower Chair Wheelchair * Other Equipment "I have everything I need" * List name and contact numbers for known caregivers / representatives who currently or will assist patient after discharge: Kota Marte - father - [phone] Brittney Sheffield mom - [phone] * Verbal permission to speak to the caregivers and representatives has been obtained from the patient. Yes * Community resources currently utilized None * Additional services required to return to the preadmission environment? No * Can the patient safely return to the preadmission environment? Yes * Has this patient been hospitalized within the prior 30 days at any hospital? No Last DP export: 09/27/18 12:38 p Patient Name: SUKHDEEP MARTE Page 05690 at 1348 All edits/amendments must be made on the electronic document DICTATION DATE: 09/27/18 1347 ORACLE APPLICATIONS DEVELOPER: EVITA 09/27/18 1347 RPT#: [id number] DC DATE: STATUS: ADM IN [facility] [address] [place] [address] END OF REPORT
[2018-09-27 14:49] VITALS: BP 124/84
--- NOTE | 2018-09-27 15:43 | MORECARE ---
CASE MANAGEMENT DISCHARGE SUMMARY PATIENT: SUKHDEEP MARTE UNIT: [id number] ADM DATE: 09/21/18 AGE: 22 : [birth year] SEX: M ROOM/BED: D.2235 AUTHOR: GRAYSON,DOC PHYSICIAN: REFERRING PHYSICIAN: BINTA VALDES MD DATE OF SERVICE: 09/27/18 Discharge Plan Patient Name: SUKHDEEP MARTE Facility: [facility]:[place] : 1995 Planned Disposition: Home Anticipated Discharge Date: Discharge Date: Expected LOS: Initial Reviewer: [email or web address] Initial Review Date: 09/24/2018 Generated: 09/27/18 4:43 pm Comments DCP- Discharge Planning Updated by [email or web address]: Ariadne Watts on 09/27/18 2:[address] Received a call from Isis with [facility] and she states they will be unable to supply antibiotics to the patient because he lives in [place]. States that [facility] in [place] may be able to supply the antibiotic. The number to [facility] is [phone]. I do still have the referral out to [place] [facility] states they are still working on mancilla quote and availability to supply. CM will continue to follow and assist with discharge planning/needs. DCP- Discharge Planning Updated by [email or web address]: Ariadne Watts on 09/27/18 12:[address] IV antibiotic order received from Dr. Prakash's office nurse. I faxed it to [place] [facility] [place] and spoke to Liana for mancilla quotes. I faxed order to [facility] in [place] and spoke with Loren, they can see in am if discharged today for next dose of rocephin. CM will continue to follow and assist with discharge planning/needs. DCP- Discharge Planning Updated by [email or web address]: Ariadne Watts on 09/26/18 1:[address] I called Gisselle with [facility] and informed her Dr. Thrasher was patient's PCP. I also informed her again that we do not have a specific order written yet for home antibiotics, I spoke with Dr. Prakash and she may have a plan tomorrow after monitoring clinical response to therapy. CM will continue to follow and assist with discharge planning/needs. DCP- Discharge Planning Updated by [email or web address]: Ariadne Mac on 09/26/18 10:[address] Met with patient, he is in agreement to [facility] in [place]. He and his mother state that they will need the most economical company for IV company. I will mancilla that out and give them a quote. I called and spoke to Gisselle at [facility] in [place] and clinical faxed. Gisselle states they do have a Medicaid slot available. CM will continue to follow and assist with discharge planning/needs. [facility] in [place]: Gisselle DCP- Discharge Planning Updated by [email or web address]: Ariadne Mac on 09/25/18 2:[address] Met with patient about home health services in [facility]. He states he will need to talk to his dad and let me know which one to use. I left him my phone number to call me when he has picked out a home health. Explained he will need IV antibiotics post discharge. CM will continue to follow and assist with discharge planning/needs. DCP- Discharge Planning Updated by [id number]: Ariadne Watts on 09/24/18 9:[address] Patient Name: SUKHDEEP MARTE Admission Status: ER Accout number: [id number] Admission Date: 09-21-2018 : 1995 Admission Diagnosis: Attending: BINTA VALDES Current LOS: 3 Anticipated DC Date: Planned Disposition: Home Primary Insurance: MEDICAID [place] Discharge Planning Comments: CM met with patient to discuss discharge planning, he is alone in the room. He lives with his parents in [place]. His address is [address]. I have faxed a corrected face sheet to admissions. He states he has all the DME at home he needs. States his father will drive him home on discharge. States he self propels in his wheelchair. Declines need for home health. States he goes to a urologist in [place] to have his suprapubic catheter changed. No needs currently identified. CM will continue to follow and assist with discharge planning/needs. Bias Binding Cutter: Ariadne Watts DCPIA - Discharge Planning Initial Assessment Updated by [email or web address]: Ariadne Watts on 09/24/18 10:38 am * Is the patient Alert and Oriented? Yes * How many steps to enter\\exit or inside your home? 0/0 * PCP Dr. Thrasher in [place] * Pharmacy [facility] in [place] * Preadmission Environment Home with Family * ADLs Partial Dependent * Partial ADLs (Assistance needed) Ambulation * Equipment Hospital Bed Other Shower Chair Wheelchair * Other Equipment "I have everything I need" * List name and contact numbers for known caregivers / representatives who currently or will assist patient after discharge: Kota Marte [facility] - [phone] Brittney - mom - [phone] * Verbal permission to speak to the caregivers and representatives has been obtained from the patient. Yes * Community resources currently utilized None * Additional services required to return to the preadmission environment? No * Can the patient safely return to the preadmission environment? Yes * Has this patient been hospitalized within the prior 30 days at any hospital? No Last DP export: 09/27/18 12:48 p Patient Name: SUKHDEEP MRATE Page 78964 at 1543 All edits/amendments must be made on the electronic document DICTATION DATE: 09/27/181542 BAKER HELPER: EVITA 09/27/181542 RPT#: [id number] DC DATE: STATUS: ADM IN [facility] [address] [place] [address] END OF REPORT
[2018-09-27] MEDS ORDERED: ROCEPHIN 2 GM/D5W 50 IV ×2 (15:51→16:16)
[2018-09-27] MEDS ORDERED: AMPICILLIN 2 GM/2 G1 IV ×2 (15:52→16:16)
[2018-09-27] MEDS ORDERED: NORCO-10 PO (15:54)
[2018-09-27] MEDS ORDERED: DURAGESIC1 PATCH .7 TRANSDERM (15:54)
[2018-09-27] MEDS ORDERED: COLACE100 MG PO (15:54)
[2018-09-27] MEDS ORDERED: MIRALAX17 GM PO (15:55)
--- NOTE | 2018-09-27 15:59 | MORECARE ---
CASE MANAGEMENT DISCHARGE SUMMARY PATIENT: SUKHDEEP MARTE UNIT: [id number] ADM DATE: 09/21/18 AGE: 22 : [birth year] SEX: M ROOM/BED: D.2235 AUTHOR: GRAYSON,DOC PHYSICIAN: REFERRING PHYSICIAN: BINTA VALDES MD DATE OF SERVICE: 09/27/18 Discharge Plan Patient Name: SUKHDEEP MARTE Facility: [facility]:[place] : 1995 Planned Disposition: Home Anticipated Discharge Date: Discharge Date: Expected LOS: Initial Reviewer: [email or web address] Initial Review Date: 09/24/2018 Generated: 09/27/18 4:59 pm Comments DCP- Discharge Planning Updated by [id number]: Ariadne Wtats on 09/27/18 2:[address] Received a call from Rosalba with [facility] that he will have 0 copay for his IV infusion/supplies. They will be out tonight to start the 24 hour bag on the pump. I called and spoke to Loren at [facility] in [place] and they will see him in the morning for his daily dose of Rocephin. They have his correct address and parents phone numbers. Clinical faxed to [phone]. DCP- Discharge Planning Updated by [email or web address]: Ariadne Watts on 09/27/18 2:[address] Received a call from Isis with [facility] and she states they will be unable to supply antibiotics to the patient because he lives in [place]. States that [facility] in [place] may be able to supply the antibiotic. The number to [facility] is [phone]. I do still have the referral out to [facility] and Umair states they are still working on mancilla quote and availability to supply. CM will continue to follow and assist with discharge planning/needs. DCP- Discharge Planning Updated by [email or web address]: Ariadne Watts on 09/27/18 12:[address] IV antibiotic order received from Dr. Prakash's office nurse. I faxed it to [facility] and spoke to Isis and Zac for mancilla quotes. I faxed order to [facility] in [place] and spoke with Loren, they can see in am if discharged today for next dose of rocephin. CM will continue to follow and assist with discharge planning/needs. DCP- Discharge Planning Updated by [email or web address]: Ariadne Watts on 09/26/18 1:[address] I called Gisselle with [facility] and informed her Dr. Thrasher was patient's PCP. I also informed her again that we do not have a specific order written yet for home antibiotics, I spoke with Dr. Prakash and she may have a plan tomorrow after monitoring clinical response to therapy. CM will continue to follow and assist with discharge planning/needs. DCP- Discharge Planning Updated by [email or web address]: Ariadne Mac on 09/26/18 10:[address] Met with patient, he is in agreement to [facility] in [place]. He and his mother state that they will need the most economical company for IV company. I will mancilla that out and give them a quote. I called and spoke to Gisselle at [facility] in [place] and clinical faxed. Gisselle states they do have a Medicaid slot available. CM will continue to follow and assist with discharge planning/needs. [facility] in [place]: Gisselle DCP- Discharge Planning Updated by [email or web address]: Ariadne Mac on 09/25/18 2:[address] Met with patient about home health services in [facility]. He states he will need to talk to his dad and let me know which one to use. I left him my phone number to call me when he has picked out a home health. Explained he will need IV antibiotics post discharge. CM will continue to follow and assist with discharge planning/needs. DCP- Discharge Planning Updated by [id number]: Ariadne Watts on 09/24/18 9:[address] Patient Name: SUKHDEEP MARTE Admission Status: ER Accout number: [id number] Admission Date: 09-21-2018 : 1995 Admission Diagnosis: Attending: BINTA VALDES Current LOS: 3 Anticipated DC Date: Planned Disposition: Home Primary Insurance: MEDICAID [place] Discharge Planning Comments: CM met with patient to discuss discharge planning, he is alone in the room. He lives with his parents in [place]. His [address] is [address] I have faxed a corrected face sheet to admissions. He states he has all the DME at home he needs. States his father will drive him home on discharge. States he self propels in his wheelchair. Declines need for home health. States he goes to a urologist in [place] to have his suprapubic catheter changed. No needs currently identified. CM will continue to follow and assist with discharge planning/needs. Mine Development Engineer: Ariadne Watts DCPIA - Discharge Planning Initial Assessment Updated by [email or web address]: Ariadne Watts on 09/24/18 10:38 am * Is the patient Alert and Oriented? Yes * How many steps to enter\\exit or inside your home? 0/0 * PCP Dr. Thrasher in [place] * Pharmacy [facility] in [place] * Preadmission Environment Home with Family * ADLs Partial Dependent * Partial ADLs (Assistance needed) Ambulation * Equipment Hospital Bed Other Shower Chair Wheelchair * Other Equipment "I have everything I need" * List name and contact numbers for known caregivers / representatives who currently or will assist patient after discharge: Kota Marte - father - [phone] Brittney [facility] - [phone] * Verbal permission to speak to the caregivers and representatives has been obtained from the patient. Yes * Community resources currently utilized None * Additional services required to return to the preadmission environment? No * Can the patient safely return to the preadmission environment? Yes * Has this patient been hospitalized within the prior 30 days at any hospital? No Last DP export: 09/27/18 2:43 p Patient Name: SUKHDEEP MARTE Page [id number] at 1559 All edits/amendments must be made on the electronic document DICTATION DATE: 09/27/18 [address] [employer] [employer]SE: EVITA 09/27/181558 RPT#: [id number] DC DATE: STATUS: ADM IN [facility] [address] [place] [address] END OF REPORT
--- NOTE | 2018-09-27 16:28 | MORECARE ---
CASE MANAGEMENT DISCHARGE SUMMARY PATIENT: SUKHDEEP MARTE UNIT: [id number] ADM DATE: 09/21/18 AGE: 22 : [birth year] SEX: M ROOM/BED: D.2235 AUTHOR: GRAYSON,DOC PHYSICIAN: REFERRING PHYSICIAN: BINTA VALDES MD DATE OF SERVICE: 09/27/18 Discharge Plan Patient Name: SUKHDEEP MARTE Facility: [facility]:[place] : 1995 Planned Disposition: Home Anticipated Discharge Date: Discharge Date: Expected LOS: Initial Reviewer: [email or web address] Initial Review Date: 09/24/2018 Generated: 09/27/18 5:28 pm Comments DCP- Discharge Planning Updated by [email or web address]: Ariadne Watts on 09/27/18 3:[address] Prakash here and agrees with discharge. All orders faxed to [facility] and [facility]. [facility] to be here this evening. Father is in room and will take him home tonight after [facility] starts 24 hour Ampicillin infusion. Home with home health and infusion services. DCP- Discharge Planning Updated by [email or web address]: Ariadne Watts on 09/27/18 2:[address] Received a call from Rosalba with [facility] that he will have 0 copay for his IV infusion/supplies. They will be out tonight to start the 24 hour bag on the pump. I called and spoke to Loren at [facility] in [place] and they will see him in the morning for his daily dose of Rocephin. They have his correct address and parents phone numbers. Clinical faxed to [phone]. DCP- Discharge Planning Updated by [id number]: Ariadne Watts on 09/27/18 2:[address] Received a call from Isis with [facility] and she states they will be unable to supply antibiotics to the patient because he lives in [place]. States that [facility] in [place] may be able to supply the antibiotic. The number to [facility] is [phone]. I do still have the referral out to [place] and Umair states they are still working on mancilla quote and availability to supply. CM will continue to follow and assist with discharge planning/needs. DCP- Discharge Planning Updated by [email or web address]: Ariadne Watts on 09/27/18 12:[address] IV antibiotic order received from Dr. Prakash's office nurse. I faxed it to [facility] and spoke to Liana for mancilla quotes. I faxed order to [facility] in [place] and spoke with Loren, they can see in am if discharged today for next dose of rocephin. CM will continue to follow and assist with discharge planning/needs. DCP- Discharge Planning Updated by [email or web address]: Ariadne Watts on 09/26/18 1:[address] I called Gisselle with [facility] and informed her Dr. Thrasher was patient's PCP. I also informed her again that we do not have a specific order written yet for home antibiotics, I spoke with Dr. Prakash and she may have a plan tomorrow after monitoring clinical response to therapy. CM will continue to follow and assist with discharge planning/needs. DCP- Discharge Planning Updated by [id number]: Ariadne Watts on 09/26/18 10:[address] Met with patient, he is in agreement to [facility] in [place]. He and his mother state that they will need the most economical company for IV company. I will mancilla that out and give them a quote. I called and spoke to Gisselle at [facility] in [place] and clinical faxed. Gisselle states they do have a Medicaid slot available. CM will continue to follow and assist with discharge planning/needs. [facility] in [place]: Gisselle DCP- Discharge Planning Updated by [id number]: Ariadne Watts on 09/25/18 2:[address] Met with patient about home health services in [facility]. He states he will need to talk to his dad and let me know which one to use. I left him my phone number to call me when he has picked out a home health. Explained he will need IV antibiotics post discharge. CM will continue to follow and assist with discharge planning/needs. DCP- Discharge Planning Updated by [id number]: Ariadne Watts on 09/24/18 9:[address] Patient Name: SUKHDEEP MARTE Admission Status: ER Accout number: [id number] Admission Date: 09-21-2018 : 1995 Admission Diagnosis: Attending: BINTA VALDES Current LOS: 3 Anticipated DC Date: Planned Disposition: Home Primary Insurance: MEDICAID [place] Discharge Planning Comments: CM met with patient to discuss discharge planning, he is alone in the room. He lives with his parents in [place]. His address is [address] I have faxed a corrected face sheet to admissions. He states he has all the DME at home he needs. States his father will drive him home on discharge. States he self propels in his wheelchair. Declines need for home health. States he goes to a urologist in [place] to have his suprapubic catheter changed. No needs currently identified. CM will continue to follow and assist with discharge planning/needs. Security Compliance Engineer: Ariadne Watts DCPIA - Discharge Planning Initial Assessment Updated by [id number]: Ariadne Watts on 09/24/18 10:38 am * Is the patient Alert and Oriented? Yes * How many steps to enter\\exit or inside your home? 0/0 * PCP Dr. Thrasher in [place] * Pharmacy [facility] in [place] * Preadmission Environment Home with Family * ADLs Partial Dependent * Partial ADLs (Assistance needed) Ambulation * Equipment Hospital Bed Other Shower Chair Wheelchair * Other Equipment "I have everything I need" * List name and contact numbers for known caregivers / representatives who currently or will assist patient after discharge: Kota Marte - father - [phone] Brittney - mom - [phone] * Verbal permission to speak to the caregivers and representatives has been obtained from the patient. Yes * Community resources currently utilized None * Additional services required to return to the preadmission environment? No * Can the patient safely return to the preadmission environment? Yes * Has this patient been hospitalized within the prior 30 days at any hospital? No Last DP export: 09/27/18 2:59 p Patient Name: SUKHDEEP MARTE Page [id number] at 6278 All edits/amendments must be made on the electronic document DICTATION DATE: 09/27/18 7373 TURRET PUNCH OPERATOR: EVITA 09/27/18 1627 RPT#: [id number] DC DATE: STATUS: ADM IN [facility] [address] [place] [address] END OF REPORT
[2018-09-27] MEDS ORDERED: ZOFRAN4 MG PO (16:30)
--- NOTE | 2018-09-27 20:01 | NUR ---
PT LEFT UNIT VIA WHEELCHAIR WITH PLATINUMSMITH STAFF MEMBER AND FATHER. INSTRUCTED PT TO FOLLOW DISCHARGE INSTRUCTIONS. PT DID NOT REQUEST ANY ADDITIONAL INFORMATION. NO COMPLAINTS. PT AND FATHER VERBALIZE UDNERSTANDING OF DISCHARGE INSTRUCTIONS.
--- NOTE | 2018-10-01 09:34 | MORECARE ---
CASE MANAGEMENT DISCHARGE SUMMARY PATIENT: SUKHDEEP MARTE UNIT: [id number] ADM DATE: 09/21/18 AGE: 23 : [birth year] SEX: M ROOM/BED: D.2235 AUTHOR: GRAYSON,DOC PHYSICIAN: REFERRING PHYSICIAN: BINTA VALDES MD DATE OF SERVICE: 10/01/18 Discharge Plan Patient Name: SUKHDEEP MARTE Facility: [facility]:[place] : 1995 Planned Disposition: Home Anticipated Discharge Date: Discharge Date: 09/27/2018 Expected LOS: 0 Initial Reviewer: [email or web address] Initial Review Date: 09/24/2018 Generated: 10/01/18 10:34 am Comments DCP- Discharge Planning Updated by [id number]: Ariadne Watts on 09/27/18 3:[address] Prakash here and agrees with discharge. All orders faxed to [facility] and [facility]. [facility] to be here this evening. Father is in room and will take him home tonight after [facility] starts 24 hour Ampicillin infusion. Home with home health and infusion services. DCP- Discharge Planning Updated by [id number]: Ariadne Watts on 09/27/18 2:[address] Received a call from Rosalba with [facility] that he will have 0 copay for his IV infusion/supplies. They will be out tonight to start the 24 hour bag on the pump. I called and spoke to Loren at [facility] in [place] and they will see him in the morning for his daily dose of Rocephin. They have his correct address and parents phone numbers. Clinical faxed to [phone]. DCP- Discharge Planning Updated by [email or web address]: Ariadne Watts on 09/27/18 2:[address] Received a call from Isis with [facility] and she states they will be unable to supply antibiotics to the patient because he lives in [place]. States that [facility] in [place] may be able to supply the antibiotic. The number to [facility] is [phone]. I do still have the referral out to [facility] and [facility] states they are still working on mancilla quote and availability to supply. CM will continue to follow and assist with discharge planning/needs. DCP- Discharge Planning Updated by [email or web address]: Ariadne Watts on 09/27/18 12:[address] IV antibiotic order received from Dr. Prakash's office nurse. I faxed it to [facility] and spoke to Liana for mancilla quotes. I faxed order to [facility] in [place] and spoke with Loren, they can see in am if discharged today for next dose of rocephin. CM will continue to follow and assist with discharge planning/needs. DCP- Discharge Planning Updated by [email or web address]: Ariadne Watts on 09/26/18 1:[address] I called Gisselle with [facility] and informed her Dr. Thrasher was patient's PCP. I also informed her again that we do not have a specific order written yet for home antibiotics, I spoke with Dr. Prakash and she may have a plan tomorrow after monitoring clinical response to therapy. CM will continue to follow and assist with discharge planning/needs. DCP- Discharge Planning Updated by [id number]: Ariadne Watts on 09/26/18 10:[address] Met with patient, he is in agreement to [facility] in [place]. He and his mother state that they will need the most economical company for IV company. I will mancilla that out and give them a quote. I called and spoke to Gisselle at [facility] in [place] and clinical faxed. Gisselle states they do have a Medicaid slot available. CM will continue to follow and assist with discharge planning/needs. [facility] in [place]: Gisselle DCP- Discharge Planning Updated by [id number]: Ariadne Watts on 09/25/18 2:[address] Met with patient about home health services in [facility]. He states he will need to talk to his dad and let me know which one to use. I left him my phone number to call me when he has picked out a home health. Explained he will need IV antibiotics post discharge. CM will continue to follow and assist with discharge planning/needs. DCP- Discharge Planning Updated by [email or web address]: Ariadne Watts on 09/24/18 9:[address] Patient Name: SUKHDEEP MARTE Admission Status: ER Accout number: [id number] Admission Date: 09-21-2018 : 1995 Admission Diagnosis: Attending: BINTA VALDES Current LOS: 3 Anticipated DC Date: Planned Disposition: Home Primary Insurance: MEDICAID [place] Discharge Planning Comments: CM met with patient to discuss discharge planning, he is alone in the room. He lives with his parents in [place]. His address is [address] I have faxed a corrected face sheet to admissions. He states he has all the DME at home he needs. States his father will drive him home on discharge. States he self propels in his wheelchair. Declines need for home health. States he goes to a urologist in [place] to have his suprapubic catheter changed. No needs currently identified. CM will continue to follow and assist with discharge planning/needs. Endocrinology Physician: Ariadne Watts DCPIA - Discharge Planning Initial Assessment Updated by [email or web address]: Ariadne Watts on 09/24/18 10:38 am * Is the patient Alert and Oriented? Yes * How many steps to enter\\exit or inside your home? 0/0 * PCP Dr. Thrasher in [place] * Pharmacy [facility] in [place] * Preadmission Environment Home with Family * ADLs Partial Dependent * Partial ADLs (Assistance needed) Ambulation * Equipment Hospital Bed Other Shower Chair Wheelchair * Other Equipment "I have everything I need" * List name and contact numbers for known caregivers / representatives who currently or will assist patient after discharge: Kota Marte - father - [phone] [facility] - [phone] * Verbal permission to speak to the caregivers and representatives has been obtained from the patient. Yes * Community resources currently utilized None * Additional services required to return to the preadmission environment? No * Can the patient safely return to the preadmission environment? Yes * Has this patient been hospitalized within the prior 30 days at any hospital? No Last DP export: 09/27/18 3:28 p Patient Name: SUKHDEEP MARTE Page [id number] at 0934 All edits/amendments must be made on the electronic document DICTATION DATE: 02/19/19 0934 MANAGER PART: DM 10/01/1834 RPT#: [id number] DC DATE:09/27/18 STATUS: DIS IN [facility] [address] [place] [address] END OF REPORT
== END 2018-09-27 20:01 | disposition home health service (06) | DRG 659 ==
LOC: D.ER 22:12 → D.ICU 23:57 → D.EDHOLD 23:57 → D.MS 23:57 → D.ICU 09-22 00:04 → D.MS 09-22 00:12 → D.ICU 09-22 01:26 → D.MS 09-22 16:35
PROVIDERS: Emergency Medicine; Urology; ADMIT Family Medicine
PROC: 0T778DZ Dilation of Left Ureter with Intraluminal Device, Via Natural or Artificial Opening Endoscopic (ICD-10-PCS; 2018-09-24)
PROC: 0TP98DZ Removal of Intraluminal Device from Ureter, Via Natural or Artificial Opening Endoscopic (ICD-10-PCS; principal; 2018-09-24 11:30)
DX: T83.028A Displacement of other urinary catheter, initial encounter (principal); A41.9 Sepsis, unspecified organism; G82.20 Paraplegia, unspecified; T83.518A Infection and inflammatory reaction due to other urinary catheter, initial encounter; N39.0 Urinary tract infection, site not specified; G95.89 Other specified diseases of spinal cord; N17.9 Acute kidney failure, unspecified; Q05.9 Spina bifida, unspecified

== ENCOUNTER 2018-10-30 18:51 | Emergency (ER) | payer MEDICARE, MEDICAID ==
[~2018-10-30 18:51] MED LIST: AMPICILLIN 2 GM/2 G1 IV; COLACE100 MG PO; DURAGESIC1 PATCH .7 TRANSDERM; MIRALAX17 GM PO; NORCO-10 PO; ROCEPHIN 2 GM/D5W 50 IV; ZOFRAN4 MG PO
[2018-10-30 19:17] VITALS: BP 154/82; Ht 172.7 cm
[2018-10-30 20:44] LABS: BASOPHILS 0.2 % (0-2); EOSINOPHILS 0 % (0-7); HEMATOCRIT 41.3 % (42.0-54.0); HEMOGLOBIN 13.6 g/dL (13.5-17.5); IMMATURE GRANULOCYTES 0.6 % (0-5); LYMPHOCYTES 17.4 % (15-50); MCH 28.8 pg (26.0-34.0); MCHC 32.9 g/dL (31.0-37.0); MCV 87.5 fL (80.0-100.0); MEAN PLATELET VOLUME 9.7 fL (7.4-10.4); MONOCYTES 8.6 % (2-11); NEUTROPHILS 73.2 % (40-80); PLATELET COUNT 148 10x3/uL (130-400); RBC 4.72 10x6/uL (4.20-6.10); WBC 6.3 10x3/uL (4.8-10.8)
[2018-10-30 21:05] LABS: ALBUMIN 3.4 g/dL (3.4-5.0); ALKALINE PHOSPHATASE 114 U/L (46-116); ALT (SGPT) 51 U/L (10-68); CALC OSMOLALITY 279 mosm/kg (275-300); CALCIUM 8.4 mg/dL (8.5-10.1); CARBON DIOXIDE 23.8 mmol/L (21.0-32.0); CHLORIDE - SERUM 104 mmol/L (98-107); GLUCOSE 93 mg/dL (74-106); MAGNESIUM - SERUM 2.1 mg/dL (1.8-2.4); POTASSIUM - SERUM 3.3 mmol/L (3.5-5.1); PROTEIN - SERUM 7.5 g/dL (6.4-8.2); SODIUM 139 mmol/L (136-145); UREA NITROGEN 17 mg/dL (7-18); eGFR NON AFRICAN AMERICAN > 90 mL/min (90-120)
[2018-10-30 21:16] LABS: APPEARANCE HAZY (CLEAR); BILIRUBIN NEGATIVE (NEGATIVE); COLOR BROWN (YELLOW); GLUCOSE NEGATIVE (NEGATIVE); KETONE SMALL mg/dL (NEGATIVE); NITRITE NEGATIVE (NEGATIVE); PROTEIN 1+ mg/dL (NEGATIVE); SPECIFIC GRAVITY 1.025 (1.005-1.020); UROBILINOGEN NORMAL (NORMAL)
[2018-10-30 21:18] LABS: BACTERIA MANY /hpf (NONE SEEN); RED CELLS - URINE >50 /hpf (0-5); WHITE CELLS - URINE 25-50 /hpf (0-5)
[2018-10-30] MEDS ORDERED: CIPRO500 MG PO (21:37)
[2018-10-30] MEDS ORDERED: PROMETHAZINE W473 ML PO (21:37)
[2018-11-04 17:08] LABS: AEROBE ID Preliminary report (()); RESULT 1 Gram positive cocci (())
== END 2018-10-30 23:25 | disposition home or self-care (01) ==
LOC: D.ER 18:51
PROVIDERS: Family Medicine
DX: N39.0 Urinary tract infection, site not specified (principal); R50.9 Fever, unspecified; R11.10 Vomiting, unspecified

== ENCOUNTER 2018-11-01 07:42 | Inpatient (IN) | payer MEDICARE ==
[~2018-11-01] VITALS: Ht 172.7 cm; Wt 65.8 kg
[~2018-11-01 07:42] MED LIST changes: +CIPRO500 MG PO; +PROMETHAZINE W473 ML PO
[2018-11-01 09:17] LABS: ALBUMIN 3.4 g/dL (3.4-5.0); ALKALINE PHOSPHATASE 92 U/L (46-116); ALT (SGPT) 45 U/L (10-68); BILIRUBIN - TOTAL 0.69 mg/dL (0.2-1.3); CALCIUM 7.8 mg/dL (8.5-10.1); CARBON DIOXIDE 20.4 mmol/L (21.0-32.0); CHLORIDE - SERUM 103 mmol/L (98-107); GLUCOSE 124 mg/dL (74-106); POTASSIUM - SERUM 3.5 mmol/L (3.5-5.1); SODIUM 139 mmol/L (136-145)
[2018-11-01 09:19] LABS: BASOPHILS 0.1 % (0-2); EOSINOPHILS 0 % (0-7); HEMATOCRIT 39.9 % (42.0-54.0); HEMOGLOBIN 13.2 g/dL (13.5-17.5); IMMATURE GRANULOCYTES 0.3 % (0-5); LYMPHOCYTES 4.8 % (15-50); MCH 28.4 pg (26.0-34.0); MCHC 33.1 g/dL (31.0-37.0); MEAN PLATELET VOLUME 9.8 fL (7.4-10.4); MONOCYTES 3.6 % (2-11); NEUTROPHILS 91.2 % (40-80); PLATELET COUNT 151 10x3/uL (130-400); RBC 4.64 10x6/uL (4.20-6.10); RDW 14.9 % (11.5-14.5); WBC 11.2 10x3/uL (4.8-10.8)
[2018-11-01 09:20] LABS: CALC OSMOLALITY 278 mosm/kg (275-300); CREATININE - SERUM 0.7 mg/dL (0.6-1.3); UREA NITROGEN 12 mg/dL (7-18); eGFR NON AFRICAN AMERICAN > 90 mL/min (90-120)
[2018-11-01 09:36] LABS: APPEARANCE HAZY (CLEAR); COLOR YELLOW (YELLOW); NITRITE NEGATIVE (NEGATIVE)
[2018-11-01 09:37] LABS: BILIRUBIN NEGATIVE (NEGATIVE); GLUCOSE NEGATIVE (NEGATIVE); KETONE MODERATE mg/dL (NEGATIVE); PROTEIN 2+ mg/dL (NEGATIVE)
[2018-11-01 09:38] LABS: BACTERIA MODERATE /hpf (NONE SEEN); EPITHELIAL CELLS 0-5 /hpf (0-5); MUCUS <1+ /lpf (NONE SEEN); RED CELLS - URINE >50 /hpf (0-5); WHITE CELLS - URINE >50 /hpf (0-5)
[2018-11-01 12:17] VITALS: BP 131/82
--- NOTE | 2018-11-01 14:10 | NUR ---
PATIENT REFUSED LOVENOX SHOT AT THIS TIME. EXPLAINED RISK OF DVT. VERBALIZED UNDERSTANDING. CALL LIGHT WITHIN REACH.
[2018-11-01 16:39] VITALS: BP 115/66; BMI 22.0; BMI 28.1
[2018-11-01 16:58] VITALS: BP 115/74
--- NOTE | 2018-11-01 18:55 | NUR ---
PATIENT IN BED WITH IV INTACT. NO COMPLAINTS OR SIGNS OF DISTRESS. CALL LIGHT WITHIN REACH. ABDI INTACT.
[2018-11-01 19:54] VITALS: BP 132/78
[2018-11-02 00:13] VITALS: BP 125/84
--- NOTE | 2018-11-02 04:22 | NUR ---
I have reviewed this patient and I concur with the Shift Assessment completed by the Licensed Practical Nurse today this shift.
[2018-11-02 05:37] VITALS: BP 100/52
[2018-11-02 05:41] LABS: BASOPHILS 0.1 % (0-2); EOSINOPHILS 0 % (0-7); HEMATOCRIT 37.1 % (42.0-54.0); IMMATURE GRANULOCYTES 0.3 % (0-5); LYMPHOCYTES 18.7 % (15-50); MCH 28.2 pg (26.0-34.0); MCHC 32.3 g/dL (31.0-37.0); MCV 87.1 fL (80.0-100.0); MEAN PLATELET VOLUME 9.9 fL (7.4-10.4); MONOCYTES 6.1 % (2-11); NEUTROPHILS 74.8 % (40-80); PLATELET COUNT 149 10x3/uL (130-400); RBC 4.26 10x6/uL (4.20-6.10); RDW 15.2 % (11.5-14.5)
[2018-11-02 06:05] LABS: ALBUMIN 2.8 g/dL (3.4-5.0); ALKALINE PHOSPHATASE 74 U/L (46-116); BILIRUBIN - TOTAL 0.44 mg/dL (0.2-1.3); CALC OSMOLALITY 287 mosm/kg (275-300); CARBON DIOXIDE 23.6 mmol/L (21.0-32.0); CHLORIDE - SERUM 110 mmol/L (98-107); CREATININE - SERUM 0.7 mg/dL (0.6-1.3); GLUCOSE 130 mg/dL (74-106); PROTEIN - SERUM 6.8 g/dL (6.4-8.2); SODIUM 144 mmol/L (136-145); UREA NITROGEN 10 mg/dL (7-18); eGFR NON AFRICAN AMERICAN > 90 mL/min (90-120)
[2018-11-02 06:06] LABS: WBC 6.9 10x3/uL (4.8-10.8)
[2018-11-02 06:19] LABS: ALT (SGPT) 30 U/L (10-68)
--- NOTE | 2018-11-02 08:05 | NUR ---
PT RESTING IN BED. AROUSED BY VERBAL STIMULI. DENIES ANY NEEDS. NO S/S OF ACUTE DISTRESS. CL IN PLACE.
[2018-11-02 09:57] VITALS: BP 98/56
[2018-11-02 12:25] VITALS: BMI 22.0
[2018-11-02 12:47] VITALS: BP 118/82
--- NOTE | 2018-11-02 15:59 | NUR ---
INCENTIVE SPIROMETER TEACHING DONE. PT DEMONSTRATED AND "UNDERSTANDS". NON PRODUCTIVE COUGH NOTED. CL IN PLACE.
--- NOTE | 2018-11-02 17:58 | NUR ---
PT SITTING UP IN BED NON PRODUCTIVE COUGH NOTED. I.S EDUCATION GIVEN AND REINTERATED. NO S/S OF ACUTE DISTRESS. CL IN PLACE.
[2018-11-02 18:14] VITALS: BP 107/74
[2018-11-02 21:18] VITALS: BP 136/85
--- NOTE | 2018-11-02 23:13 | NUR ---
PT REPORTS N/V. ALSO STATES PAIN MEDICATION IS NOT CONTROLLING PAIN AND REQUESTS SOMETHING DIFFERENT. TOLD PT TO GIVE HIS OTHER PAIN MEDICINE MORE TIME TO KICK IN BEFORE TRYING IV MED.
[2018-11-03 00:48] VITALS: BP 142/91
[2018-11-03 04:50] VITALS: BP 134/82
--- NOTE | 2018-11-03 05:08 | NUR ---
I have reviewed this patient and I concur with the Shift Assessment completed by the Licensed Practical Nurse today this shift.
[2018-11-03 05:27] LABS: BASOPHILS 0.2 % (0-2); EOSINOPHILS 0.2 % (0-7); HEMATOCRIT 38.1 % (42.0-54.0); HEMOGLOBIN 12.5 g/dL (13.5-17.5); IMMATURE GRANULOCYTES 0.3 % (0-5); LYMPHOCYTES 35.5 % (15-50); MCH 28.3 pg (26.0-34.0); MCHC 32.8 g/dL (31.0-37.0); MCV 86.4 fL (80.0-100.0); MEAN PLATELET VOLUME 9.9 fL (7.4-10.4); NEUTROPHILS 58.8 % (40-80); PLATELET COUNT 169 10x3/uL (130-400); RBC 4.41 10x6/uL (4.20-6.10); RDW 15.2 % (11.5-14.5); WBC 6.4 10x3/uL (4.8-10.8)
[2018-11-03 05:40] LABS: ALKALINE PHOSPHATASE 71 U/L (46-116); ALT (SGPT) 26 U/L (10-68); BILIRUBIN - TOTAL 0.33 mg/dL (0.2-1.3); CARBON DIOXIDE 24.9 mmol/L (21.0-32.0); CHLORIDE - SERUM 110 mmol/L (98-107); CREATININE - SERUM 0.7 mg/dL (0.6-1.3); GLUCOSE 94 mg/dL (74-106); PROTEIN - SERUM 7.1 g/dL (6.4-8.2); SODIUM 146 mmol/L (136-145); eGFR NON AFRICAN AMERICAN > 90 mL/min (90-120)
[2018-11-03 05:46] LABS: CALC OSMOLALITY 287 mosm/kg (275-300); POTASSIUM - SERUM 2.9 mmol/L (3.5-5.1); UREA NITROGEN 5 mg/dL (7-18)
--- NOTE | 2018-11-03 07:55 | NUR ---
PT RESTING IN BED. AROUSED BY VERBAL STIMULI. NO S/S OF ACUTE DISTRESS. CL IN PLACE.
[2018-11-03 09:45] VITALS: BP 125/80
[2018-11-03 10:53] LABS: MAGNESIUM - SERUM 1.8 mg/dL (1.8-2.4); PHOSPHOROUS 3.2 mg/dL (2.5-4.9)
--- NOTE | 2018-11-03 15:15 | NUR ---
EDUCATED PT TO USE I.S. AND FLUTTER VALVE. TOLD PT HE NEEDED TO SIT UP AND COUGH AND DEEP BREATH MUCH POSSIBLE TO HELP EXPAND LUNGS AND HELP WITH OXYGEN EXCHANGE. PT "UNDERSTANDS". NO S/S OF ACUTE DISTRESS. NON PRODUCTIVE COUGH NOTED. O2 @2 LITERS NC. CL IN PLACE.
--- NOTE | 2018-11-03 17:38 | NUR ---
PT RESTING IN BED. POOR APPETITE THIS SHIFT. ENCOURAGE PT TO COUGH AND DEEP BREATH. DARK TEA COLORED URINE DRAINING TO BAG BY GRAVITY. NO S/S OF ACUTE DISTRESS. CL IN PLACE.
[2018-11-03 18:08] VITALS: BP 120/84
[2018-11-03 20:00] VITALS: BP 130/89
--- NOTE | 2018-11-03 20:14 | NUR ---
PATIENT RESTING IN BED WITH NO S/S OF DISTRESS. ADMINISTERED MEDS PER ORDERS INCLUDING MORPHINE AND ZOFRAN PER PATIENT REQUEST. ADMINISTERED 4MG OF MORPHINE PER REQUEST. I ALSO REC'D IN REPORT THAT [facility] ADMINISTERED 4MG OF MORPHINE AND IT CONTROLLED THE PATIENT'S PAIN. PATIENT DENIES OTHER NEEDS AT THIS TIME. BED IN LOWEST POSITION AND CALL LIGHT WITHIN REACH. WILL CONTINUE TO MONITOR.
[2018-11-04 06:12] LABS: BASOPHILS 0.2 % (0-2); EOSINOPHILS 1.3 % (0-7); HEMATOCRIT 38.7 % (42.0-54.0); HEMOGLOBIN 12.5 g/dL (13.5-17.5); IMMATURE GRANULOCYTES 0.2 % (0-5); LYMPHOCYTES 46.4 % (15-50); MCHC 32.3 g/dL (31.0-37.0); MCV 86.8 fL (80.0-100.0); MEAN PLATELET VOLUME 9.5 fL (7.4-10.4); MONOCYTES 6.7 % (2-11); NEUTROPHILS 45.2 % (40-80); PLATELET COUNT 191 10x3/uL (130-400); RBC 4.46 10x6/uL (4.20-6.10); RDW 15.5 % (11.5-14.5)
[2018-11-04 06:24] LABS: WBC 4.6 10x3/uL (4.8-10.8)
[2018-11-04 06:58] LABS: ALBUMIN 3.1 g/dL (3.4-5.0); ALKALINE PHOSPHATASE 70 U/L (46-116); ALT (SGPT) 32 U/L (10-68); BILIRUBIN - TOTAL 0.31 mg/dL (0.2-1.3); CARBON DIOXIDE 23.2 mmol/L (21.0-32.0); CHLORIDE - SERUM 109 mmol/L (98-107); CREATININE - SERUM 0.6 mg/dL (0.6-1.3); GLUCOSE 78 mg/dL (74-106); PROTEIN - SERUM 6.6 g/dL (6.4-8.2); SODIUM 145 mmol/L (136-145); eGFR NON AFRICAN AMERICAN > 90 mL/min (90-120)
[2018-11-04 06:59] LABS: CALC OSMOLALITY 284 mosm/kg (275-300); POTASSIUM - SERUM 3.6 mmol/L (3.5-5.1); UREA NITROGEN 3 mg/dL (7-18)
--- NOTE | 2018-11-04 07:20 | NUR ---
PATIENT ADMITTED FOR PNEUMONIA, REPORTS FREQUENT NAUSEA SINCE BEFORE ADMIT. CHRONIC BACK AND SHOULDER PAIN. PAIN RELIEVED WITH MORPHINE AND ZOFRAN. RESPIRATIONS NON-LABORED. 02 SAT 96% RA, NO NEEDS VOICED AT THIS TIME, CL IN EASY REACH
[2018-11-04 08:00] VITALS: BP 130/92
[2018-11-04 12:00] VITALS: BP 127/86
[2018-11-04 17:00] VITALS: BP 128/79
[2018-11-04 21:16] VITALS: BP 140/88
[2018-11-05 01:16] VITALS: BP 140/78
[2018-11-05 05:12] VITALS: BP 124/55
[2018-11-05 05:52] LABS: BASOPHILS 0.2 % (0-2); EOSINOPHILS 2.1 % (0-7); HEMATOCRIT 39.3 % (42.0-54.0); HEMOGLOBIN 12.7 g/dL (13.5-17.5); IMMATURE GRANULOCYTES 0.3 % (0-5); LYMPHOCYTES 38.8 % (15-50); MCH 27.9 pg (26.0-34.0); MCHC 32.3 g/dL (31.0-37.0); MCV 86.2 fL (80.0-100.0); MEAN PLATELET VOLUME 9.5 fL (7.4-10.4); MONOCYTES 8.2 % (2-11); NEUTROPHILS 50.4 % (40-80); PLATELET COUNT 226 10x3/uL (130-400); RBC 4.56 10x6/uL (4.20-6.10); RDW 14.9 % (11.5-14.5)
[2018-11-05 06:11] LABS: ALKALINE PHOSPHATASE 73 U/L (46-116); ALT (SGPT) 40 U/L (10-68); CALCIUM 8.1 mg/dL (8.5-10.1); CHLORIDE - SERUM 107 mmol/L (98-107); CREATININE - SERUM 0.7 mg/dL (0.6-1.3); GLUCOSE 87 mg/dL (74-106); POTASSIUM - SERUM 3.1 mmol/L (3.5-5.1); PROTEIN - SERUM 6.7 g/dL (6.4-8.2); SODIUM 143 mmol/L (136-145); eGFR NON AFRICAN AMERICAN > 90 mL/min (90-120)
[2018-11-05 06:13] LABS: CALC OSMOLALITY 280 mosm/kg (275-300); UREA NITROGEN 5 mg/dL (7-18)
[2018-11-05 06:26] LABS: WBC 6.1 10x3/uL (4.8-10.8)
[2018-11-05 09:38] VITALS: BP 114/64
--- NOTE | 2018-11-05 10:57 | NUR ---
NUTRITION F/U CHART REVIEWED. PT TOLERATING REG DIET WITH ~75% INTAKE BREAKFAST THIS AM. WILL CONTINUE TO PROVIDE DIET, MONITOR PO INTAKE. RD FOLLOWING
[2018-11-05 14:22] VITALS: BP 118/66
--- NOTE | 2018-11-05 14:54 | MORECARE ---
CASE MANAGEMENT DISCHARGE SUMMARY PATIENT: SUKHDEEP BATRES UNIT: [id number] ADM DATE: 11/01/18 AGE: 23 : [birth year] SEX: M ROOM/BED: D.2208 AUTHOR: CAT GALICIA PHYSICIAN: REFERRING PHYSICIAN: CHUCK MEJIA MD DATE OF SERVICE: 11/05/18 Discharge Plan Patient Name: SUKHDEEP BATRES Facility: [facility]:[place] : 1995 Planned Disposition: Home with Home Health Anticipated Discharge Date: Discharge Date: Expected LOS: Initial Reviewer: [email or web address] Initial Review Date: 11/01/2018 Generated: 11/05/18 3:54 pm Comments DCP- Discharge Planning Updated by [email or web address]: Adilene Person on 11/05/18 1:[address] Patient Name: SUKHDEEP BATRES Admission Status: ER Accout number: [id number] Admission Date: 11-01-2018 : 1995 Admission Diagnosis: Attending: CHUCK MEJIA Current LOS: 4 Anticipated DC Date: Planned Disposition: Home with Home Health Primary Insurance: MEDICARE A & B Discharge Planning Comments: CM met with patient to complete initial dc planning assessment. CM educated patient on the CM role and verbal consent given by patient to complete assessment. Patient lives at home with his parents where he states he is independent with his care. At discharge patient plans to return home and feels this is a safe discharge. CM discussed availability of home health, rehab services, and medical equipment. He states that he is current with [facility]. He also has a wheelchair, hospital bed, and shower chair. Patient denied known discharge needs at this time. CM will continue to follow and will assist as needed with dc plans/needs. Beam Department Supervisor: Adilene Person DCPIA - Discharge Planning Initial Assessment Updated by [email or web address]: Adilene Person on 11/05/18 2:45 pm * Is the patient Alert and Oriented? Yes * How many steps to enter\exit or inside your home? * PCP Price neal) * Pharmacy [facility] on [address] * Preadmission Environment Home with Family * ADLs Independent * Equipment Hospital Bed Shower Chair Wheelchair * List name and contact numbers for known caregivers / representatives who currently or will assist patient after discharge: Kota (dad) [phone] * Verbal permission to speak to the caregivers and representatives has been obtained from the patient. N/A * Community resources currently utilized Home Health * Please name any agencies selected above. [facility] * Additional services required to return to the preadmission environment? No * Can the patient safely return to the preadmission environment? Yes * Has this patient been hospitalized within the prior 30 days at any hospital? No Patient Name: SUKHDEEP BATRES Page [phone] at 1454 All edits/amendments must be made on the electronic document DICTATION DATE: 11/05/181452 EXPERIMENTAL AIRCRAFT MECHANIC: EVITA 11/05/181452 RPT#: [id number] DC DATE: STATUS: ADM IN [facility] [address] [place] [address] END OF REPORT
[2018-11-05 16:46] VITALS: BP 114/78
[2018-11-05 18:04] VITALS: Ht 172.7 cm; Wt 65.8 kg
--- NOTE | 2018-11-05 19:00 | NUR ---
PT IN BED IN LOW SANCHES POSITON..VITAL SIGNS STABLE AND AFREBILE. NO VISUAL CUES OF DISTRESS NOTED. DENIES ANY OTHER NEEDS AT THIS TIME. BED LOW. SIDE RAILS UP X2, CALL LIGHT IN THE REACH. WILL CONTINUE TO MONITOR.
[2018-11-05 20:54] VITALS: BP 137/95
[2018-11-06 05:01] VITALS: BP 154/80
[2018-11-06 06:36] LABS: BASOPHILS 0 % (0-2); EOSINOPHILS 3.2 % (0-7); HEMATOCRIT 39.2 % (42.0-54.0); HEMOGLOBIN 12.6 g/dL (13.5-17.5); IMMATURE GRANULOCYTES 0.6 % (0-5); LYMPHOCYTES 33.7 % (15-50); MCH 28.1 pg (26.0-34.0); MCHC 32.1 g/dL (31.0-37.0); MCV 87.5 fL (80.0-100.0); MEAN PLATELET VOLUME 9.4 fL (7.4-10.4); NEUTROPHILS 54.5 % (40-80); RBC 4.48 10x6/uL (4.20-6.10); WBC 7.2 10x3/uL (4.8-10.8)
[2018-11-06 06:53] LABS: ALKALINE PHOSPHATASE 78 U/L (46-116); ALT (SGPT) 32 U/L (10-68); BILIRUBIN - TOTAL 0.34 mg/dL (0.2-1.3); CALCIUM 8.7 mg/dL (8.5-10.1); CARBON DIOXIDE 27.4 mmol/L (21.0-32.0); CHLORIDE - SERUM 109 mmol/L (98-107); CREATININE - SERUM 0.8 mg/dL (0.6-1.3); GLUCOSE 103 mg/dL (74-106); POTASSIUM - SERUM 4.2 mmol/L (3.5-5.1); PROTEIN - SERUM 6.9 g/dL (6.4-8.2); SODIUM 144 mmol/L (136-145); eGFR NON AFRICAN AMERICAN > 90 mL/min (90-120)
[2018-11-06 06:58] LABS: CALC OSMOLALITY 286 mosm/kg (275-300); UREA NITROGEN 12 mg/dL (7-18)
[2018-11-06 07:35] LABS: PLATELET COUNT 274 10x3/uL (130-400)
[2018-11-06 08:30] VITALS: BP 129/86
--- NOTE | 2018-11-06 10:44 | NUR ---
BED CHANGE COMPLETED. NO FURTHER NEEDS AT THIS TIME
--- NOTE | 2018-11-06 10:45 | NUR ---
HERNÁN FROM IR TALKED WITH PATIENT ABOUT CHANGING OUT SUPRA PUBIC CATH. SAYS HE WANTS IT DONE TOMORROW
--- NOTE | 2018-11-06 11:40 | NUR ---
PATIENT CONCERNED ABOUT SUPRA PUBIC CATH BEING PLACED TOMORROW. WANTS REASSURANCE THAT THEY DO KNOW WHAT THEY ARE DOING. HE IS ALSO ALLERGIC TO LATEX SO THAT NEEDS TO BE A CONSIDERATION WELL. HE HAS A 18 GAUGE CATH IN CURRENTLY. PREVIOUS CATH HE HAS REPORTED TO BE A 20 GAUGE. HE STATES THE HOLE HAS "GOTTEN SMALLER."
[2018-11-06 13:03] VITALS: BP 125/69
--- NOTE | 2018-11-06 13:54 | NUR ---
OT NOTE: MET WITH PT REGARDING THERAPY. PT STATES THAT HE HAS BOTH PNA AND UTI AND DOES NOT FEEL WELL. HOWEVER, HE IS ABLE TO PERFORM BED MOB INCLUDING SUPINE TO SIT WITHOUT ASSIST. STATES THAT HE HAS BEEN SITTING UP FREQUENTLY THROUGHOUT THE DAY. STATES THAT HE DOES NOT WANT TO GET UP INTO CHAIR TODAY, BUT MAY TRY TOMORROW. NIDIA BROWN, OTR/L
[2018-11-06 14:45] VITALS: BP 112/70
[2018-11-06 20:10] VITALS: BP 138/87
[2018-11-07 01:01] VITALS: BP 162/110
--- NOTE | 2018-11-07 03:08 | NUR ---
Resting in bed with no s/s of distress resprations even and unlabored. Call light in reach.
[2018-11-07 04:45] VITALS: BP 132/82
[2018-11-07 05:07] LABS: BASOPHILS 0.1 % (0-2); HEMATOCRIT 40.9 % (42.0-54.0); HEMOGLOBIN 13.3 g/dL (13.5-17.5); IMMATURE GRANULOCYTES 1.5 % (0-5); LYMPHOCYTES 32.7 % (15-50); MCH 28.3 pg (26.0-34.0); MCHC 32.5 g/dL (31.0-37.0); MEAN PLATELET VOLUME 9.3 fL (7.4-10.4); MONOCYTES 9.5 % (2-11); NEUTROPHILS 52.2 % (40-80); PLATELET COUNT 312 10x3/uL (130-400); RDW 14.5 % (11.5-14.5); WBC 8.2 10x3/uL (4.8-10.8)
[2018-11-07 05:16] LABS: CALC OSMOLALITY 273 mosm/kg (275-300); CALCIUM 8.7 mg/dL (8.5-10.1); CARBON DIOXIDE 25.6 mmol/L (21.0-32.0); CHLORIDE - SERUM 103 mmol/L (98-107); CREATININE - SERUM 0.8 mg/dL (0.6-1.3); GLUCOSE 99 mg/dL (74-106); SODIUM 138 mmol/L (136-145); eGFR NON AFRICAN AMERICAN > 90 mL/min (90-120)
[2018-11-07 05:18] LABS: UREA NITROGEN 7 mg/dL (7-18)
[2018-11-07 09:23] VITALS: BP 153/93
[2018-11-07 10:42] LABS: APPEARANCE CLEAR (CLEAR); COLOR STRAW (YELLOW); SPECIFIC GRAVITY 1.005 (1.005-1.020)
[2018-11-07 10:43] LABS: BACTERIA FEW /hpf (NONE SEEN); BILIRUBIN NEGATIVE (NEGATIVE); EPITHELIAL CELLS 0-5 /hpf (0-5); GLUCOSE NEGATIVE (NEGATIVE); KETONE NEGATIVE (NEGATIVE); NITRITE NEGATIVE (NEGATIVE); PROTEIN NEGATIVE (NEGATIVE); RED CELLS - URINE 0-5 /hpf (0-5); UROBILINOGEN NORMAL (NORMAL); WHITE CELLS - URINE 0-5 /hpf (0-5); YEAST RARE /hpf (NONE SEEN)
--- NOTE | 2018-11-07 12:20 | NUR ---
MOM (RENE) WOULD LIKE FOR DR CUNHA TO CALL HER AT [phone]. ABOUT SON'S CARE AND UPDATE.
[2018-11-07 12:22] VITALS: BP 104/54
--- NOTE | 2018-11-07 14:19 | NUR ---
DR BURGOS ON PHONE WITH FATHER AFTER DISCUSSING WITH SON ABOUT TAKING THE STENT OUT AND INSTEAD INJECTING BOTOX INTO THE BLADDER WHICH WOULD NEED DONE EVERY SIX MONTHS. RISK OF INFECTION IS GREATER WITH THE STENT IN AND SUPRA PUBIC CATH. WITH THE BLADDER CALMED DOWN WITH BOTOX AND SUPRA PUBIC CATH PLACED THEN RISK OF INFECTION SHOULD BE LOWER. IF INFECTION OCCURS THEN ONLY THE SUPRA PUBIC CATH WOULD BE CHANGED WHICH SHOULD CLEAR UP ANY INFECTION WITHOUT NEED TO CHANGE OUT THE STENT EVERY TIME. FATHER EXPRESSED AGREEMENT WITH DR BURGOS'S PLAN. ALSO, DR BURGOS SAID THAT IF THIS DOESN'T CORRECT THE PROBLEMS THEN WE CAN GO BACK TO THE STENTS
[2018-11-07 17:53] VITALS: BP 104/54
[2018-11-07 21:57] VITALS: BP 155/110
[2018-11-08 01:29] VITALS: BP 146/99
[2018-11-08 05:05] VITALS: BP 130/92
[2018-11-08 05:20] LABS: BASOPHILS 0.1 % (0-2); EOSINOPHILS 3.4 % (0-7); HEMATOCRIT 42.4 % (42.0-54.0); IMMATURE GRANULOCYTES 1.7 % (0-5); LYMPHOCYTES 31.3 % (15-50); MCH 28.2 pg (26.0-34.0); MCV 85.3 fL (80.0-100.0); MEAN PLATELET VOLUME 9.4 fL (7.4-10.4); MONOCYTES 9.3 % (2-11); NEUTROPHILS 54.2 % (40-80); PLATELET COUNT 371 10x3/uL (130-400); RBC 4.97 10x6/uL (4.20-6.10); RDW 14.7 % (11.5-14.5); WBC 9.8 10x3/uL (4.8-10.8)
[2018-11-08 05:33] LABS: CALC OSMOLALITY 275 mosm/kg (275-300); CALCIUM 8.9 mg/dL (8.5-10.1); CARBON DIOXIDE 24.5 mmol/L (21.0-32.0); CHLORIDE - SERUM 106 mmol/L (98-107); CREATININE - SERUM 0.7 mg/dL (0.6-1.3); GLUCOSE 96 mg/dL (74-106); POTASSIUM - SERUM 3.8 mmol/L (3.5-5.1); SODIUM 140 mmol/L (136-145); eGFR NON AFRICAN AMERICAN > 90 mL/min (90-120)
[2018-11-08 05:44] LABS: UREA NITROGEN 5 mg/dL (7-18)
--- NOTE | 2018-11-08 09:28 | NUR ---
LYING IN BED. LUNGS CLEAR BILATERALLY IN ALL GARVIN. HEART SOUNDS HEARD AT S1 AND S2 IN ALL GARVIN. BOWEL SOUNDS HEARD X4. DENIES PROBLEMS WITH BM. SKIN INTACT WITHOUT REDNESS. REFUSED LOVENOX INJECTION. PO MEDS HELD PER NPO STATUS. REFUSED FALL PRECAUTIONS. C/O PAIN 7/10 AND NAUSEA. WILL CONTINUE TO MONITOR.
[2018-11-08 09:30] VITALS: BP 131/88
--- NOTE | 2018-11-08 10:02 | NUR ---
IV TO LEFT HAND PATENT WITHOUT REDNESS. PRN MORPHINE GIVEN FOR PAIN 02/19. PRN ZOFRAN GIVEN FOR NAUSEA. WILL CONTINUE TO MONITOR.
--- NOTE | 2018-11-08 11:53 | NUR ---
PATIENT SLEEPING. WILL CONTINUE TO MONITOR.
[2018-11-08 13:31] VITALS: BP 148/94
--- NOTE | 2018-11-08 13:50 | NUR ---
PRN MORPHINE GIVEN PER REQUEST FOR PAIN 05/22. ABDI CARE PROVIDED AND BAG CHANGED PER PATIENT REQUEST. NEW GOWN PROVIDED PER PATIENT REQUEST. WILL CONTINUE TO MONITOR.
--- NOTE | 2018-11-08 14:07 | NUR ---
Nutrition Follow Up: Chart reviewed. Pt is s/p cysto stent removal and continues NPO. Pt was eating 54% meal avg on a regular diet prior to NPO diet change. BM: 11/08/18 Meds and labs reviewed Rec resuming regular diet when medically feasible. RD following.
--- NOTE | 2018-11-08 16:36 | NUR ---
PREOP MEDICATIONS GIVEN PER ORDER.
[2018-11-08 17:16] VITALS: BP 125/85
--- NOTE | 2018-11-08 17:29 | NUR ---
PRN MORPHINE GIVEN FOR C/O PAIN 05/22. WILL CONTINUE TO MONITOR.
--- NOTE | 2018-11-08 18:25 | NUR ---
PATIENT C/O FEELING DIZZY AND "NOT RIGHT." BP 156/105, HR 118, O2 100%. DOCTOR IN ROOM ORDERED STAT EKG, DDIMER, ABGS, AND ONE TIME ATIVAN. STAT ATIVAN GIVEN. PATIENT STATES "FEELS BETTER" AND APPEARS MUCH CALMER. POSSIBLY PREOP ANXIETY. WILL CONTINUE TO MONITOR.
--- NOTE | 2018-11-08 19:15 | NUR ---
PATIENT WITH SPINA BIFIDA, EXTRA CARE TAKEN ON POSITIONING, DR BURGOS PRESENT, [facility].
[2018-11-08 19:50] VITALS: BP 132/62
--- NOTE | 2018-11-08 19:50 | NUR ---
RECEIVED PT TO FLOOR FROM [facility]. PT ALERT & ORIENTED. POST OP VITAL SIGNS STABLE. NO NEEDS AT THIS TIME. COMPLETE ASSESSMENT PER FLOW-SHEET. WILL CONTINUE TO MONITOR.
[2018-11-09] VITALS: BP 123/80
[2018-11-09 03:00] VITALS: BP 141/66
[2018-11-09 06:25] LABS: BASOPHILS 0 % (0-2); EOSINOPHILS 0.1 % (0-7); HEMATOCRIT 40.9 % (42.0-54.0); HEMOGLOBIN 13.4 g/dL (13.5-17.5); IMMATURE GRANULOCYTES 1.1 % (0-5); LYMPHOCYTES 10.3 % (15-50); MCH 28.3 pg (26.0-34.0); MCHC 32.8 g/dL (31.0-37.0); MCV 86.3 fL (80.0-100.0); MEAN PLATELET VOLUME 9.4 fL (7.4-10.4); MONOCYTES 5.3 % (2-11); NEUTROPHILS 83.2 % (40-80); PLATELET COUNT 398 10x3/uL (130-400); RBC 4.74 10x6/uL (4.20-6.10); RDW 14.7 % (11.5-14.5); WBC 8.5 10x3/uL (4.8-10.8)
[2018-11-09 06:41] LABS: CALC OSMOLALITY 276 mosm/kg (275-300); CALCIUM 8.9 mg/dL (8.5-10.1); CARBON DIOXIDE 22.7 mmol/L (21.0-32.0); CHLORIDE - SERUM 104 mmol/L (98-107); CREATININE - SERUM 0.7 mg/dL (0.6-1.3); GLUCOSE 136 mg/dL (74-106); POTASSIUM - SERUM 4.1 mmol/L (3.5-5.1); SODIUM 138 mmol/L (136-145); eGFR NON AFRICAN AMERICAN > 90 mL/min (90-120)
[2018-11-09 06:42] LABS: UREA NITROGEN 11 mg/dL (7-18)
[2018-11-09 08:03] VITALS: BP 135/71
[2018-11-09 12:10] VITALS: BP 153/78
[2018-11-09 16:23] VITALS: BP 148/82
[2018-11-09 20:00] VITALS: BP 147/84
[2018-11-10] VITALS: BP 150/65; BP 150/78
--- NOTE | 2018-11-10 01:01 | NUR ---
IV CAME OUT A COUPLE OF HOURS AGO. ATTEMPTS BY SEVERAL NURSES TO RESITE UNSUCCESSFUL. IV NOW RESITED TO RIGHT AC 22 G BY BRONWYN BURDICK. RAYMUNDO JOHNSON FROM FROM 2200. PT C/O PAIN 10/10 AND NAUSEA. GAVE MORPHINE AND ZOFRAN IV PUSH. SOME LEAKAGE FROM SUPRA PUBIC CATHETER. CHANGED PAD AND GOWN. CHANGED STABILIZER TO OTHER LEFT LEG. NO OTHER NEEDS. WILL CONTINUE TO MONITOR.
[2018-11-10 03:00] VITALS: BP 140/58
[2018-11-10 06:19] LABS: CALC OSMOLALITY 282 mosm/kg (275-300); CALCIUM 8.3 mg/dL (8.5-10.1); CARBON DIOXIDE 25.2 mmol/L (21.0-32.0); CHLORIDE - SERUM 108 mmol/L (98-107); CREATININE - SERUM 0.7 mg/dL (0.6-1.3); GLUCOSE 96 mg/dL (74-106); POTASSIUM - SERUM 3.8 mmol/L (3.5-5.1); SODIUM 143 mmol/L (136-145); eGFR NON AFRICAN AMERICAN > 90 mL/min (90-120)
[2018-11-10 06:20] LABS: UREA NITROGEN 8 mg/dL (7-18)
[2018-11-10 07:10] LABS: BASOPHILS 0.1 % (0-2); EOSINOPHILS 1.7 % (0-7); HEMATOCRIT 37.4 % (42.0-54.0); HEMOGLOBIN 11.9 g/dL (13.5-17.5); LYMPHOCYTES 39.2 % (15-50); MCH 28.1 pg (26.0-34.0); MCHC 31.8 g/dL (31.0-37.0); MCV 88.2 fL (80.0-100.0); MEAN PLATELET VOLUME 9.1 fL (7.4-10.4); MONOCYTES 14.3 % (2-11); NEUTROPHILS 43.7 % (40-80); PLATELET COUNT 341 10x3/uL (130-400); RBC 4.24 10x6/uL (4.20-6.10); RDW 14.9 % (11.5-14.5); WBC 7.3 10x3/uL (4.8-10.8)
--- NOTE | 2018-11-10 08:00 | NUR ---
PT ALERT X 4. BREATH SOUNDS CLEAR BILAT. SUPRAPUBIC CATHETER IN PLACE. IV TO RIGHT AC, PATENT, DRESSING CLEAN DRY AND INTACT. PT REPORTING PAIN OF 9/10, MEDICATED PER ORDERS, WILL MONITOR. BED LOW, CALL LIGHT IN REACH, NO OTHER NEEDS AT THIS TIME.
[2018-11-10 08:35] VITALS: BP 104/56
[2018-11-10 12:25] VITALS: BP 118/70
[2018-11-10 17:02] LABS: APPEARANCE CLEAR (CLEAR); COLOR YELLOW (YELLOW); GLUCOSE NEGATIVE (NEGATIVE); KETONE NEGATIVE (NEGATIVE); NITRITE NEGATIVE (NEGATIVE); PROTEIN NEGATIVE (NEGATIVE); UROBILINOGEN NORMAL (NORMAL)
[2018-11-10 17:03] LABS: BILIRUBIN NEGATIVE (NEGATIVE)
[2018-11-10 17:05] LABS: BACTERIA FEW /hpf (NONE SEEN); EPITHELIAL CELLS 0-5 /hpf (0-5); RED CELLS - URINE 0-5 /hpf (0-5); WHITE CELLS - URINE RARE /hpf (0-5)
[2018-11-10 17:10] VITALS: BP 145/97
[2018-11-10 20:00] VITALS: BP 153/95
--- NOTE | 2018-11-10 20:47 | NUR ---
PT C/O "KIDNEY PAIN" 9/10 AND NAUSEA. GAVE MORPHINE 8 MG AND ZOFRAN 4 MG IV PUSH. COMPLETE ASSESSMENT PER FLOW-SHEET. NO OTHER NEEDS. WILL REASSESS AND CONTINUE TO MONITOR.
[2018-11-11 03:00] VITALS: BP 117/72
[2018-11-11 05:14] LABS: BASOPHILS 0.1 % (0-2); HEMATOCRIT 39.1 % (42.0-54.0); HEMOGLOBIN 12.4 g/dL (13.5-17.5); IMMATURE GRANULOCYTES 0.8 % (0-5); LYMPHOCYTES 39.3 % (15-50); MCHC 31.7 g/dL (31.0-37.0); MCV 88.3 fL (80.0-100.0); MONOCYTES 10.7 % (2-11); NEUTROPHILS 47.1 % (40-80); PLATELET COUNT 334 10x3/uL (130-400); RBC 4.43 10x6/uL (4.20-6.10); RDW 14.6 % (11.5-14.5); WBC 7.4 10x3/uL (4.8-10.8)
[2018-11-11 05:25] LABS: CALC OSMOLALITY 279 mosm/kg (275-300); CALCIUM 8.7 mg/dL (8.5-10.1); CARBON DIOXIDE 27.5 mmol/L (21.0-32.0); CHLORIDE - SERUM 105 mmol/L (98-107); CREATININE - SERUM 0.7 mg/dL (0.6-1.3); GLUCOSE 92 mg/dL (74-106); POTASSIUM - SERUM 3.9 mmol/L (3.5-5.1); SODIUM 141 mmol/L (136-145); UREA NITROGEN 9 mg/dL (7-18); eGFR NON AFRICAN AMERICAN > 90 mL/min (90-120)
--- NOTE | 2018-11-11 08:01 | NUR ---
AWAKE AND ALERT. ORIENTED X3. C/O NAUSEA AND PAIN. GIVEN 8MG MORPHINE WITH 4MG ZOFRAN SLOW IVP FOR SAME. WILL MONITOR. LUNGS ARE CLEAR BILATERALLY, NO COUGH NOTED. SKIN IS INTACT WITHOUT REDNESS. SUPRAPUBIC CATHETER PATENT WITH CLEAR YELLOW URINE. IV TO RIGHT AC IS PATENT WITHOUT REDNESS AT INSERTION SITE. DENIES NEEDS.
[2018-11-11 08:44] VITALS: BP 130/92
--- NOTE | 2018-11-11 09:49 | NUR ---
ATE ALMOST ALL OF BREAKFAST. REPORTS PAIN IMPROVED AT THIS TIME.
[2018-11-11] MEDS ORDERED: COLACE100 MG PO (11:21)
[2018-11-11] MEDS ORDERED: FLORAJEN3 CAPS460 MG PO (11:21)
[2018-11-11] MEDS ORDERED: MUCINEX600 MG PO (11:22)
[2018-11-11] MEDS ORDERED: BROVANA15 MCG/2 M INH (11:22)
[2018-11-11] MEDS ORDERED: PROTONIX40 MG PO (11:22)
[2018-11-11] MEDS ORDERED: TESSALON PERLE100 MG PO (11:22)
[2018-11-11] MEDS ORDERED: XOPENEX 1.1.25 MG/3 UPD (11:23)
[2018-11-11] MEDS ORDERED: DIFLUCAN150 MG PO (11:23)
[2018-11-11] MEDS ORDERED: HYDROCODON-ACE1 EA10 PO (11:24)
--- NOTE | 2018-11-11 11:43 | MORECARE ---
CASE MANAGEMENT DISCHARGE SUMMARY PATIENT: SUKHDEEP BATRES UNIT: [id number] ADM DATE: 11/01/18 AGE: 23 : [birth year] SEX: M ROOM/BED: D.2208 AUTHOR: CAT GALICIA PHYSICIAN: REFERRING PHYSICIAN: CHUCK MEJIA MD DATE OF SERVICE: 11/11/18 Discharge Plan Patient Name: SUKHDEEP BATRES Facility: [facility]:[place] : 1995 Planned Disposition: Home with Home Health Anticipated Discharge Date: Discharge Date: Expected LOS: Initial Reviewer: [email or web address] Initial Review Date: 11/01/2018 Generated: 11/11/18 12:42 pm Comments DCP- Discharge Planning Updated by [id number]: Adilene Person on 11/11/18 10:[address] IMM SERVED AND EXPLAINED DCP- Discharge Planning Updated by [email or web address]: Adilene Person on 11/05/18 1:[address] Patient Name: SUKHDEEP BATRES Admission Status: ER Accout number: [id number] Admission Date: 11-01-2018 : 1995 Admission Diagnosis: Attending: CHUCK MEJIA Current LOS: 4 Anticipated DC Date: Planned Disposition: Home with Home Health Primary Insurance: MEDICARE A & B Discharge Planning Comments: CM met with patient to complete initial dc planning assessment. CM educated patient on the CM role and verbal consent given by patient to complete assessment. Patient lives at home with his parents where he states he is independent with his care. At discharge patient plans to return home and feels this is a safe discharge. CM discussed availability of home health, rehab services, and medical equipment. He states that he is current with [facility]. He also has a wheelchair, hospital bed, and shower chair. Patient denied known discharge needs at this time. CM will continue to follow and will assist as needed with dc plans/needs. Family Assistant: Adilene Person DCPIA - Discharge Planning Initial Assessment Updated by [id number]: Adilene Person on 11/05/18 2:45 pm * Is the patient Alert and Oriented? Yes * How many steps to enter\exit or inside your home? * PCP Price neal) * Pharmacy [facility] on [address] * Preadmission Environment Home with Family * ADLs Independent * Equipment Hospital Bed Shower Chair Wheelchair * List name and contact numbers for known caregivers / representatives who currently or will assist patient after discharge: Kota (dionne) [phone] * Verbal permission to speak to the caregivers and representatives has been obtained from the patient. N/A * Community resources currently utilized Home Health * Please name any agencies selected above. [facility] * Additional services required to return to the preadmission environment? No * Can the patient safely return to the preadmission environment? Yes * Has this patient been hospitalized within the prior 30 days at any hospital? No Coverage Notice Reviewer: [email or web address] Yohannes Person Notice Issued Date-Time: 11/11/2018 11:20 Notice Type: IM Discharge Notice Notice Delivered To: Patient Relationship to Patient: Medical Hospital Sales Name: Delivery Method: HAND - Hand Delivered Brisa Days: Prior Verbal Notification: Recipient Understood Notice: Yes Recipient Signature: Yes Med Rec Note Co-signed by Attending: Coverage Notice Comment: Last DP export: 11/05/18 1:54 p Patient Name: SUKHDEEP BATRES Page [id number] at 1143 All edits/amendments must be made on the electronic document DICTATION DATE: 11/11/18 114 INTERNAL CONTROLS SPECIALIST: EVITA 11/11/18 114 RPT#: [id number] DC DATE: STATUS: ADM IN [facility] [address] [place] [address] END OF REPORT
--- NOTE | 2018-11-11 11:51 | MORECARE ---
CASE MANAGEMENT DISCHARGE SUMMARY PATIENT: SUKHDEEP BATRES UNIT: [id number] ADM DATE: 11/01/18 AGE: 23 : [birth year] SEX: M ROOM/BED: D.2208 AUTHOR: CAT GALICIA PHYSICIAN: REFERRING PHYSICIAN: CHUCK MEJIA MD DATE OF SERVICE: 11/11/18 Discharge Plan Patient Name: SUKHDEEP BATRES Facility: [facility]:[place] : 1995 Planned Disposition: Home with Home Health Anticipated Discharge Date: Discharge Date: Expected LOS: Initial Reviewer: [email or web address] Initial Review Date: 11/01/2018 Generated: 11/11/18 12:50 pm Comments DCP- Discharge Planning Updated by [id number]: Adilene Person on 11/11/18 10:[address] IMM SERVED AND EXPLAINED DCP- Discharge Planning Updated by [id number]: Adilene Person on 11/05/18 1:[address] Patient Name: SUKHDEEP BATRES Admission Status: ER Accout number: [id number] Admission Date: 11-01-2018 : 1995 Admission Diagnosis: Attending: CHUCK MEJIA Current LOS: 4 Anticipated DC Date: Planned Disposition: Home with Home Health Primary Insurance: MEDICARE A & B Discharge Planning Comments: CM met with patient to complete initial dc planning assessment. CM educated patient on the CM role and verbal consent given by patient to complete assessment. Patient lives at home with his parents where he states he is independent with his care. At discharge patient plans to return home and feels this is a safe discharge. CM discussed availability of home health, rehab services, and medical equipment. He states that he is current with [facility]. He also has a wheelchair, hospital bed, and shower chair. Patient denied known discharge needs at this time. CM will continue to follow and will assist as needed with dc plans/needs. Pole Inspector: Adilene Person DCPIA - Discharge Planning Initial Assessment Updated by [email or web address]: Adilene Person on 11/05/18 2:45 pm * Is the patient Alert and Oriented? Yes * How many steps to enter\exit or inside your home? * PCP Price neal) * Pharmacy [facility] on [address] * Preadmission Environment Home with Family * ADLs Independent * Equipment Hospital Bed Shower Chair Wheelchair * List name and contact numbers for known caregivers / representatives who currently or will assist patient after discharge: Kota monroy) [phone] * Verbal permission to speak to the caregivers and representatives has been obtained from the patient. N/A * Community resources currently utilized Home Health * Please name any agencies selected above. [facility] * Additional services required to return to the preadmission environment? No * Can the patient safely return to the preadmission environment? Yes * Has this patient been hospitalized within the prior 30 days at any hospital? No External Providers External Provider: [facility] Next Contact Date: Service Request Date: Service Type: Resolution: Reviewer: Comments: Coverage Notice Reviewer: [id number] Yohannes Person Notice Issued Date-Time: 11/11/2018 11:20 Notice Type: IM Discharge Notice Notice Delivered To: Patient Relationship to Patient: Assistant Press Operator Name: Delivery Method: HAND - Hand Delivered Brisa Days: Prior Verbal Notification: Recipient Understood Notice: Yes Recipient Signature: Yes Med Rec Note Co-signed by Attending: Coverage Notice Comment: Last DP export: 11/11/18 10:43 am Patient Name: SUKHDEEP BATRES Page 46086 at 1151 All edits/amendments must be made on the electronic document DICTATION DATE: 11/11/18 1150 COMPENSATION INTERN: EVITA 11/11/18 1150 RPT#: [id number] DC DATE: STATUS: ADM IN [facility] [address] [place] [address] END OF REPORT
--- NOTE | 2018-11-11 11:54 | NUR ---
REQUESTED AND GIVEN 8MG MORPHINE SLOW IVP FOR C/O LEFT BACK PAIN LEVEL 8. WILL MONITOR.
--- NOTE | 2018-11-11 11:59 | MORECARE ---
CASE MANAGEMENT DISCHARGE SUMMARY PATIENT: SUKHDEEP BATRES UNIT: [id number] ADM DATE: 11/01/18 AGE: 23 : [birth year] SEX: M ROOM/BED: D.2208 AUTHOR: CAT GALICIA PHYSICIAN: REFERRING PHYSICIAN: CHUCK MEJIA MD DATE OF SERVICE: 11/11/18 Discharge Plan Patient Name: SUKHDEEP BATRES Facility: [facility]:[place] : 1995 Planned Disposition: Home with Home Health Anticipated Discharge Date: Discharge Date: Expected LOS: Initial Reviewer: [email or web address] Initial Review Date: 11/01/2018 Generated: 11/11/18 12:59 pm Comments DCP- Discharge Planning Updated by [email or web address]: Adilene Person on 11/11/18 10:[address] PATIENT DISCHARGING HOME TODAY, HE IS CURRENT WITH [employer] [facility] CM TO FOLLOW AND ASSIST NEEDED DCP- Discharge Planning Updated by [id number]: Adilene Person on 11/11/18 10:[address] IMM SERVED AND EXPLAINED DCP- Discharge Planning Updated by [id number]: Adilene Person on 11/05/18 1:[address] Patient Name: SUKHDEEP BATRES Admission Status: ER Accout number: [id number] Admission Date: 11-01-2018 : 1995 Admission Diagnosis: Attending: CHUCK MEJIA Current LOS: 4 Anticipated DC Date: Planned Disposition: Home with Home Health Primary Insurance: MEDICARE A & B Discharge Planning Comments: CM met with patient to complete initial dc planning assessment. CM educated patient on the CM role and verbal consent given by patient to complete assessment. Patient lives at home with his parents where he states he is independent with his care. At discharge patient plans to return home and feels this is a safe discharge. CM discussed availability of home health, rehab services, and medical equipment. He states that he is current with [facility] He also has a wheelchair, hospital bed, and shower chair. Patient denied known discharge needs at this time. CM will continue to follow and will assist as needed with dc plans/needs. Career Professional: Adilene Person DCPIA - Discharge Planning Initial Assessment Updated by [email or web address]: Adilene Person on 11/05/18 2:45 pm * Is the patient Alert and Oriented? Yes * How many steps to enter\exit or inside your home? * PCP Price neal) * Pharmacy [facility] on [address] * Preadmission Environment Home with Family * ADLs Independent * Equipment Hospital Bed Shower Chair Wheelchair * List name and contact numbers for known caregivers / representatives who currently or will assist patient after discharge: Kota (dionne) [phone] * Verbal permission to speak to the caregivers and representatives has been obtained from the patient. N/A * Community resources currently utilized Home Health * Please name any agencies selected above. [facility] * Additional services required to return to the preadmission environment? No * Can the patient safely return to the preadmission environment? Yes * Has this patient been hospitalized within the prior 30 days at any hospital? No Coverage Notice Reviewer: [email or web address] - Adilene Person Notice Issued Date-Time: 11/11/2018 11:20 Notice Type: IM Discharge Notice Notice Delivered To: Patient Relationship to Patient: Health Consultant Name: Delivery Method: HAND - Hand Delivered Brisa Days: Prior Verbal Notification: Recipient Understood Notice: Yes Recipient Signature: Yes Med Rec Note Co-signed by Attending: Coverage Notice Comment: Last DP export: 11/11/18 10:50 am Patient Name: SUKHDEEP BATRES Page 39730 at 1159 All edits/amendments must be made on the electronic document DICTATION DATE: 11/11/18 1159 PROJECT MANAGEMENT ANALYST: EVITA 11/11/18 1159 RPT#: [id number] DC DATE: STATUS: ADM IN [facility] [address] [place] [address] END OF REPORT
[2018-11-11 13:15] VITALS: BP 145/86
--- NOTE | 2018-11-11 14:32 | OP ---
PATIENT NAME: SUKHDEEP BATRES MEDICAL RECORD: [id number] :[birth year] LOCATION:D.MS [address] ADMISSION DATE:11/01/18 SURGEON: WILL BURGOS MD DATE OF OPERATION: 11/08/2018 SURGEON: Will Burgos MD ANESTHESIA: TIVA by Raheem Worrell CRNA. 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 PROCEDURES: Cystoscopy, removal of left ureteral stent, intravesical Botox injection 100 units, change of suprapubic tube. FINDINGS: Heavily trabeculated bladder with diverticula. Inflammatory polyps in the bladder. No bladder tumors. BLOOD LOSS: None. CLINICAL HISTORY: This is a 23-year-old male, who has spina bifida. He has a spastic neurogenic bladder causing bilateral hydroureteronephrosis. He was previously in the care of a urologist in [place]. This urologist informed the patient that he needs to have a left ureteral stent in at all times, otherwise "he will ." Because of this, a retained foreign body, the patient keeps having recurrent urinary tract infections. I last saw this patient in September of 2018 when I changed his suprapubic tube and the left ureteral stent because of an infection. He is back in the hospital now with a drug-resistant pseudomonas UTI. Because of the infected foreign materials, they need to be removed. I finally convinced the patient that he does not need a stent. He has hydronephrosis due to a spastic neurogenic bladder. The treatment of a spastic neurogenic bladder is intravesical Botox injection. This will calm the bladder down so that it does not keep creating high pressures in the bladder, which damage the kidneys. He is already on IV antibiotics on the floor. No further antibiotics were given to him. DESCRIPTION OF PROCEDURE: The patient was placed in supine position on the OR table. He was given IV sedation. His legs are permanently contracted and they cannot be put in stirrups. We padded them with pillows and allowed them to be abducted and rest against the stirrup frames. The 21-Sami cystoscope with 30-degree lens was used for visualization. Penile urethra shows no strictures. Prostatic urethra shows no obstruction. The old left ureteral stent was identified and removed entirely using grasping forceps. I then returned the scope back into the bladder and using a Meir's injection needle, 100 units of Botox was injected into the bladder. Ten different sites were given 1 mL injections intramuscularly into the bladder wall. Each milliliter contained 10 units of Botox and preservative-free injectable saline. We spared the ureteral orifices and the trigone the injections. Finally once this was done, we deflated the balloon of the previous suprapubic tube. The previous suprapubic tube was removed entirely. A brand new suprapubic tube was placed through the previous suprapubic tube opening in the belly. I could see the entry of the suprapubic tube into the bladder with the cystoscope still in the bladder. The balloon was then inflated with 10 mL of sterile water. A StatLock was placed on the suprapubic tube to prevent traction on the suprapubic catheter. The cystoscope was then removed entirely and the procedure was terminated. OPERATIVE REPORT [id number] SUKHDEEP BATRES TRANSINT:[id number] Voice Confirmation ID: [id number] DOCUMENT ID: [id number] WILL BURGOS MD at 1432 CC: [id number] DICTATION DATE: 11/08/181911 WATER JET LOOM FIXER: 11/09/18 0012 [facility] IN [facility] [address] [place] [address]
--- NOTE | 2018-11-11 14:45 | NUR ---
DISCHARGE INSTRUCTIONS GIVEN BOTH VERBALLY AND WRITTEN. ALL QUESTIONS ANSWERED. PATIENT VERBALIZED UNDERSTANDING OF SAME. IV TO RIGHT AC D/C WITH CATHETER INTACT. WAITING ON RIDE TO D/C HOME.
--- NOTE | 2018-11-11 15:33 | NUR ---
DISCHARGED TO HOME VIA WC WITH FAMILY. ALL BELONGINGS WITH PATIENT.
--- NOTE | 2018-11-12 14:26 | EC ---
PATIENT:SUKHDEEP BATRES DATE OF SERVICE: 11/01/18 SEX: M MEDICAL RECORD: [id number] DATE OF : [birth year] LOCATION:[facility] [place] AGE OF PATIENT: 23 ADMISSION DATE: 11/01/18 REFERRING PHYSICIAN: INTERPRETING PHYSICIAN: MANOJ GARCIA MD ECHOCARDIOGRAM REPORT ECHO CHARGES 4 ECHO COMPLETE Date: 11/06/18 CLINICAL DIAGNOSIS: EVAL FOR VEGATATION/ STREPH IN BLOOD CULTURE ECHOCARDIOGRAPHIC MEASUREMENTS (adult normal given) AC root (d.<3.7cm) 3.1 cm LV Septum d (<1.2 cm> 1.0 cm Valve Excursion 1.3 cm LV Septum (systole) 1.2 cm Left Atria (s.<4.0cm> 3.6 cm LVPW d(<1.2cm) 1.4 cm RV (d.<2.3cm) 3.6 cm LVPW (sytole) 1.6 cm LV diastole(<5.6CM) 5.7 cm MV E-F(>70mm/sec) cm LV systole 4.0 cm LVOT Diameter 2.2 cm MV exc.(>10mm) 1.6 cm Est.ejection fraction (50-75%) % DOPPLER: LVIT cm/sec A 65.0 cm/sec E 80.0 cm/sec LA cm/sec RVSP 30 mmHg LVOT 80 cm/sec AOP1/2T m/s Asc. Ao 128 cm/sec RVOT 85 cm/sec RA cm/sec PA 128 cm/sec AV Gradient Peak 6.51 mmHg AV Mean 3.07 mmHg AV Area 2.1 cm MV Gradient Peak 3.81 mmHg MV Mean 1.41 mmHg MV Area cm COMMENTS: Employment Trainer: 2 SUJIT AUGUSTE Spragger: 3 Dr. Faith TAPE# PACS Pericardial Effusion N DATE OF SERVICE: Adequate 2D echo, color flow and spectral Doppler, and M-mode. No LVH. LV internal dimension is normal. Wall motion is normal. EF is greater than or equal to 55%. Aortic valve is tricuspid. No evidence of stenosis by Doppler interrogation. Left atrium is normal. Mitral valve shows no prolapse. Trace MR. Right-sided chambers are grossly normal. Trace TR. No obvious vegetation in all 4 cardiac valves. ECHOCARDIOGRAM REPORT [id number] SUKHDEEP BATRES TRANSINT:[id number] Voice Confirmation ID: [id number] DOCUMENT ID: [id number] MANOJ GARCIA MD at 1426 CC: [id number] DICTATION DATE: 11/06/18 151 CONTROL TOWER OPERATOR: 11/06/18 2239 DIS IN 11/11/18 [facility] [address] [id number]
== END 2018-11-11 15:34 | disposition home health service (06) | DRG 698 ==
LOC: D.ER 07:42 → D.MS 09:28
PROVIDERS: Emergency Medicine; Internal Medicine Nephrology; Student in an Organized Health Care Education/Training Program; Urology; ADMIT Family Medicine; ATTEND Family Medicine
PROC: 0T2BX0Z Change Drainage Device in Bladder, External Approach (ICD-10-PCS; 2018-11-08)
PROC: 3E0K8GC Introduction of Other Therapeutic Substance into Genitourinary Tract, Via Natural or Artificial Opening Endoscopic (ICD-10-PCS; principal; 2018-11-08 12:00)
PROC: 0TP98DZ Removal of Intraluminal Device from Ureter, Via Natural or Artificial Opening Endoscopic (ICD-10-PCS; 2018-11-08 12:00)
DX: T83.511A Infection and inflammatory reaction due to indwelling urethral catheter, initial encounter (principal); J18.9 Pneumonia, unspecified organism; N39.0 Urinary tract infection, site not specified; E86.0 Dehydration; J20.9 Acute bronchitis, unspecified; E87.6 Hypokalemia

== ENCOUNTER 2018-12-08 00:10 | Observation (INO) | payer MEDICARE ==
[~2018-12-08] VITALS: Ht 172.7 cm; Wt 68.2 kg
[~2018-12-08 00:10] MED LIST changes: +BROVANA15 MCG/2 M INH; +DIFLUCAN150 MG PO; +FLORAJEN3 CAPS460 MG PO; +HYDROCODON-ACE1 EA10 PO; +MUCINEX600 MG PO; +PROTONIX40 MG PO; +TESSALON PERLE100 MG PO; +XOPENEX 1.1.25 MG/3 UPD
[2018-12-08 00:30] LABS: HEMATOCRIT 41.2 % (42.0-54.0); HEMOGLOBIN 13.9 g/dL (13.5-17.5); LYMPHOCYTES 18.4 % (15-50); MCH 29.2 pg (26.0-34.0); MCHC 33.7 g/dL (31.0-37.0); MCV 86.6 fL (80.0-100.0); MEAN PLATELET VOLUME 8.7 fL (7.4-10.4); NEUTROPHILS 69.4 % (40-80); RBC 4.76 10x6/uL (4.20-6.10); RDW 13.9 % (11.5-14.5); WBC 9.3 10x3/uL (4.8-10.8)
[2018-12-08 00:31] LABS: PLATELET COUNT 237 10x3/uL (130-400)
[2018-12-08 00:56] LABS: ALKALINE PHOSPHATASE 125 U/L (46-116); ALT (SGPT) 29 U/L (10-68); BILIRUBIN - TOTAL 0.52 mg/dL (0.2-1.3); CALC OSMOLALITY 277 mosm/kg (275-300); CARBON DIOXIDE 23.9 mmol/L (21.0-32.0); CHLORIDE - SERUM 104 mmol/L (98-107); CREATININE - SERUM 0.7 mg/dL (0.6-1.3); GLUCOSE 108 mg/dL (74-106); LIPASE 158 U/L (73-393); POTASSIUM - SERUM 3.4 mmol/L (3.5-5.1); PROTEIN - SERUM 8.2 g/dL (6.4-8.2); SODIUM 139 mmol/L (136-145); UREA NITROGEN 11 mg/dL (7-18); eGFR NON AFRICAN AMERICAN > 90 mL/min (90-120)
[2018-12-08 01:09] LABS: APPEARANCE CLOUDY (CLEAR); BACTERIA NONE SEEN /hpf (NONE SEEN); BILIRUBIN NEGATIVE (NEGATIVE); COLOR RED (YELLOW); EPITHELIAL CELLS NSEEN /hpf (0-5); GLUCOSE NEGATIVE (NEGATIVE); KETONE NEGATIVE (NEGATIVE); NITRITE NEGATIVE (NEGATIVE); PROTEIN 2+ mg/dL (NEGATIVE); RED CELLS - URINE >50 /hpf (0-5); SPECIFIC GRAVITY 1.015 (1.005-1.020); UROBILINOGEN NORMAL (NORMAL); WHITE CELLS - URINE 0-5 /hpf (0-5)
--- NOTE | 2018-12-08 01:42 | NUR ---
CT REPORT BACK AND REVIEWED BY DR HENRIQUEZ. SUPRAPUBIC CATHETER DEFLATED AND PULLED BACK APPROX 2 INCHES PER Margie COULTER RN- THEN RE-INFLATED AND RE-STAT LOCKED. NOW DRAINING CLEAR YELLOW URINE.
--- NOTE | 2018-12-08 03:19 | NUR ---
PT BACK FROM CT- STATES IS STILL HURTING. DR HENRIQUEZ MADE AWARE.
--- NOTE | 2018-12-08 04:05 | NUR ---
PT'S SUPRAPUBIC CATHETER PULLED BACK PER BRIAN COULTER AND DR HENRIQUEZ AFTER SECOND CT. GOOD FLOW NOTED OF SLIGHTLY PINK TO YELLOW URINE.
--- NOTE | 2018-12-08 04:41 | NUR ---
PT RE-EVALUATED. CON'T TO HAVE GOOD URINE OUTPUT- CLEAR YELLOW NOW. PT STATES HIS RIGHT KIDNEY FEELS SOME BETTER, BUT HIS LEFT "REALLY HURTS". BLADDER SCAN OBTAINED- PT HAS 0 URINE IN BLADDER AT THIS TIME. PT'S FATHER UPDATED THAT HE WOULD BE ADMITTED.
--- NOTE | 2018-12-08 05:19 | NUR ---
TO FLOOR WITH IV NS AT 999 BOLUS CON'T ON ADMISSION.
[2018-12-08 05:36] VITALS: BP 147/101; Ht 172.7 cm; Wt 68.2 kg
--- NOTE | 2018-12-08 05:42 | NUR ---
PT ARRIVED ON UNIT VIA STRETCHER ESCORTED BY ER STAFF. POSITIONED IN BED FOR COMFORT. BOLUS DOSE OF NS INFUSING.
--- NOTE | 2018-12-08 05:43 | NUR ---
ADMISSION ASSESSMENT COMPLETE.
[2018-12-08 09:26] VITALS: BP 124/82
[2018-12-08 13:27] VITALS: BP 147/96
--- NOTE | 2018-12-08 14:00 | NUR ---
PULLED OUT SUPAPUBIC CATH WITH 1,000CC OUTPUT TOLERATED W/O COMPLAINT, NEW CATH PUT IN BY
[2018-12-08 18:09] VITALS: BP 152/98
--- NOTE | 2018-12-08 19:00 | NUR ---
PT HAS 250CC OUTPUT OF CATH AT THIS TIME, NO C/O OF DISCOMFORT TOLERATING DIET ASKING WHEN HE COULD GO HOME, I EXPRESSED TO THE PT "HE CAN CALL HIS RIDE BECAUSE I WAS FIXING TO DO HIS D/C PAPERWORK AT THIS TIME" CL IN REACH
--- NOTE | 2018-12-08 20:52 | NUR ---
DISCHARGED TO HOME VIA PERSONAL WHEELCHIAR AND FAMILY, IV DC'D AND DISCHARGE INSTRUCTIONS GIVEN PRIOR TO DISCHARGE
== END 2018-12-08 20:55 | disposition home or self-care (01) ==
LOC: D.ER 00:10 → OBSVTIME 04:58 → D.MS 04:58
PROVIDERS: Family Medicine; ADMIT Internal Medicine Nephrology; ATTEND Internal Medicine Nephrology
DX: T83.020A Displacement of cystostomy catheter, initial encounter (principal); Y84.8 Other medical procedures as the cause of abnormal reaction of the patient, or of later complication, without mention of misadventure at the time of the procedure; Q05.9 Spina bifida, unspecified

== ENCOUNTER 2018-12-31 12:21 | Emergency (ER) | payer MEDICARE ==
[~2018-12-31] VITALS: Ht 172.7 cm; Wt 68.2 kg
[2018-12-31 12:23] VITALS: Ht 172.7 cm; Wt 68.2 kg
[2018-12-31 15:08] LABS: BASOPHILS 0.2 % (0-2); EOSINOPHILS 3.7 % (0-7); HEMATOCRIT 44.8 % (42.0-54.0); HEMOGLOBIN 14.8 g/dL (13.5-17.5); IMMATURE GRANULOCYTES 0.3 % (0-5); LYMPHOCYTES 17.8 % (15-50); MCH 29.1 pg (26.0-34.0); MEAN PLATELET VOLUME 9.8 fL (7.4-10.4); MONOCYTES 7.2 % (2-11); NEUTROPHILS 70.8 % (40-80); PLATELET COUNT 263 10x3/uL (130-400); RBC 5.09 10x6/uL (4.20-6.10); RDW 13.9 % (11.5-14.5); WBC 10.8 10x3/uL (4.8-10.8)
[2018-12-31 15:18] LABS: ALBUMIN 3.9 g/dL (3.4-5.0); ALKALINE PHOSPHATASE 129 U/L (46-116); ALT (SGPT) 32 U/L (10-68); BILIRUBIN - TOTAL 0.41 mg/dL (0.2-1.3); CALC OSMOLALITY 279 mosm/kg (275-300); CALCIUM 9.1 mg/dL (8.5-10.1); CARBON DIOXIDE 24.5 mmol/L (21.0-32.0); CHLORIDE - SERUM 106 mmol/L (98-107); CREATININE - SERUM 0.6 mg/dL (0.6-1.3); GLUCOSE 89 mg/dL (74-106); POTASSIUM - SERUM 3.8 mmol/L (3.5-5.1); SODIUM 141 mmol/L (136-145); UREA NITROGEN 12 mg/dL (7-18); eGFR NON AFRICAN AMERICAN > 90 mL/min (90-120)
[2018-12-31 18:42] LABS: APPEARANCE HAZY (CLEAR); BACTERIA FEW /hpf (NONE SEEN); BILIRUBIN NEGATIVE (NEGATIVE); COLOR PINK (YELLOW); GLUCOSE NEGATIVE (NEGATIVE); KETONE NEGATIVE (NEGATIVE); NITRITE NEGATIVE (NEGATIVE); PROTEIN 1+ mg/dL (NEGATIVE); RED CELLS - URINE >50 /hpf (0-5); UROBILINOGEN NORMAL (NORMAL)
[2018-12-31] MEDS ORDERED: CIPRO500 MG PO (19:01)
[2018-12-31] MEDS ORDERED: TYLENOL W/CODEI1 TAB PO (19:02)
[2018-12-31] MEDS ORDERED: ZOFRAN ODT4 MG/UDTAB PO (19:02)
[2018-12-31 19:21] VITALS: BP 150/96
== END 2018-12-31 19:32 | disposition home or self-care (01) ==
LOC: D.ER 12:21
PROVIDERS: Family Medicine
DX: T83.018A Breakdown (mechanical) of other urinary catheter, initial encounter (principal); R10.9 Unspecified abdominal pain; N39.0 Urinary tract infection, site not specified

== ENCOUNTER 2019-01-21 23:00 | Emergency (ER) | payer MEDICARE ==
[~2019-01-21] VITALS: Ht 172.7 cm; Wt 63.6 kg
[~2019-01-21 23:00] MED LIST changes: +TYLENOL W/CODEI1 TAB PO; +ZOFRAN ODT4 MG/UDTAB PO
[2019-01-21 23:20] VITALS: BP 151/96; Ht 172.7 cm; Wt 63.6 kg
== END 2019-01-22 00:15 | disposition home or self-care (01) ==
LOC: D.ER 23:00
DX: T83.018A Breakdown (mechanical) of other urinary catheter, initial encounter (principal)

== ENCOUNTER 2019-01-30 16:45 | Emergency (ER) | payer MEDICARE ==
[2019-01-30 17:56] VITALS: BMI 22.8
[2019-01-30 22:38] LABS: BASOPHILS 0.1 % (0-2); EOSINOPHILS 2.2 % (0-7); HEMATOCRIT 42.5 % (42.0-54.0); HEMOGLOBIN 14.3 g/dL (13.5-17.5); IMMATURE GRANULOCYTES 0.2 % (0-5); LYMPHOCYTES 25.3 % (15-50); MCH 28.7 pg (26.0-34.0); MCHC 33.6 g/dL (31.0-37.0); MCV 85.2 fL (80.0-100.0); MEAN PLATELET VOLUME 9.5 fL (7.4-10.4); MONOCYTES 5.5 % (2-11); NEUTROPHILS 66.7 % (40-80); PLATELET COUNT 255 10x3/uL (130-400); RBC 4.99 10x6/uL (4.20-6.10); RDW 13.2 % (11.5-14.5); WBC 8.3 10x3/uL (4.8-10.8)
[2019-01-30 22:52] LABS: APPEARANCE CLOUDY (CLEAR); BACTERIA MANY /hpf (NONE SEEN); BILIRUBIN NEGATIVE (NEGATIVE); COLOR PINK (YELLOW); EPITHELIAL CELLS 0-5 /hpf (0-5); GLUCOSE NEGATIVE (NEGATIVE); GRANULAR CAST 0-5 /lpf (NONE SEEN); KETONE NEGATIVE (NEGATIVE); NITRITE POSITIVE (NEGATIVE); PROTEIN 2+ mg/dL (NEGATIVE); RED CELLS - URINE 25-50 /hpf (0-5); WHITE CELLS - URINE >50 /hpf (0-5)
[2019-01-30 22:53] LABS: ALBUMIN 3.8 g/dL (3.4-5.0); ALKALINE PHOSPHATASE 113 U/L (46-116); ALT (SGPT) 30 U/L (10-68); BILIRUBIN - TOTAL 0.47 mg/dL (0.2-1.3); CALC OSMOLALITY 280 mosm/kg (275-300); CALCIUM 9.3 mg/dL (8.5-10.1); CARBON DIOXIDE 24.8 mmol/L (21.0-32.0); CHLORIDE - SERUM 105 mmol/L (98-107); CREATININE - SERUM 0.7 mg/dL (0.6-1.3); GLUCOSE 96 mg/dL (74-106); POTASSIUM - SERUM 3.9 mmol/L (3.5-5.1); PROTEIN - SERUM 8.2 g/dL (6.4-8.2); SODIUM 140 mmol/L (136-145); UREA NITROGEN 19 mg/dL (7-18); eGFR NON AFRICAN AMERICAN > 90 mL/min (90-120)
[2019-01-31] MEDS ORDERED: SULFAMETHOXAZOL1 TA3 PO (00:06)
[2019-01-31 02:48] VITALS: BP 138/80
== END 2019-01-31 00:15 | disposition home or self-care (01) ==
LOC: D.ER 16:45
PROVIDERS: Emergency Medicine; Family Medicine
DX: T83.018A Breakdown (mechanical) of other urinary catheter, initial encounter (principal); Q05.9 Spina bifida, unspecified; N39.0 Urinary tract infection, site not specified

== ENCOUNTER 2019-03-02 21:21 | Inpatient (IN) | payer MEDICARE ==
[~2019-03-02] VITALS: Ht 172.7 cm; Wt 68.2 kg
[~2019-03-02 21:21] MED LIST changes: +SULFAMETHOXAZOL1 TA3 PO
[2019-03-02 22:34] LABS: BASOPHILS 0.3 % (0-2); EOSINOPHILS 2.7 % (0-7); HEMATOCRIT 43.8 % (42.0-54.0); HEMOGLOBIN 14.7 g/dL (13.5-17.5); IMMATURE GRANULOCYTES 0.1 % (0-5); LYMPHOCYTES 26.9 % (15-50); MCH 28.5 pg (26.0-34.0); MCHC 33.6 g/dL (31.0-37.0); MCV 84.9 fL (80.0-100.0); MEAN PLATELET VOLUME 9.8 fL (7.4-10.4); PLATELET COUNT 226 10x3/uL (130-400); RBC 5.16 10x6/uL (4.20-6.10); RDW 13.8 % (11.5-14.5); WBC 7.1 10x3/uL (4.8-10.8)
[2019-03-02 22:49] LABS: ALBUMIN 3.8 g/dL (3.4-5.0); ALKALINE PHOSPHATASE 120 U/L (46-116); ALT (SGPT) 36 U/L (10-68); BILIRUBIN - TOTAL 0.72 mg/dL (0.2-1.3); CALC OSMOLALITY 281 mosm/kg (275-300); CALCIUM 8.8 mg/dL (8.5-10.1); CHLORIDE - SERUM 107 mmol/L (98-107); CREATININE - SERUM 0.7 mg/dL (0.6-1.3); GLUCOSE 82 mg/dL (74-106); POTASSIUM - SERUM 4.6 mmol/L (3.5-5.1); PROTEIN - SERUM 7.9 g/dL (6.4-8.2); SODIUM 140 mmol/L (136-145); UREA NITROGEN 23 mg/dL (7-18); eGFR NON AFRICAN AMERICAN > 90 mL/min (90-120)
[2019-03-02 22:51] LABS: APPEARANCE CLEAR (CLEAR); BILIRUBIN NEGATIVE (NEGATIVE); COLOR YELLOW (YELLOW); GLUCOSE NEGATIVE (NEGATIVE); KETONE NEGATIVE (NEGATIVE); NITRITE POSITIVE (NEGATIVE); PROTEIN TRACE mg/dL (NEGATIVE); UROBILINOGEN NORMAL (NORMAL)
[2019-03-02 22:53] LABS: BACTERIA MANY /hpf (NONE SEEN); RED CELLS - URINE 0-5 /hpf (0-5)
[2019-03-02 22:54] LABS: AMORPHOUS SEDIMENT >1+ /lpf (NONE SEEN)
[2019-03-03 00:18] LABS: APPEARANCE CLOUDY (CLEAR); BILIRUBIN NEGATIVE (NEGATIVE); COLOR RED (YELLOW); GLUCOSE NEGATIVE (NEGATIVE); KETONE NEGATIVE (NEGATIVE); NITRITE NEGATIVE (NEGATIVE); PROTEIN 3+ mg/dL (NEGATIVE); UROBILINOGEN NORMAL (NORMAL)
[2019-03-03 00:20] LABS: BACTERIA FEW /hpf (NONE SEEN); EPITHELIAL CELLS 0-5 /hpf (0-5); RED CELLS - URINE >50 /hpf (0-5)
[2019-03-03 01:29] VITALS: BP 142/92; Ht 172.7 cm; Wt 68.2 kg
[2019-03-03 04:00] VITALS: BP 129/84
[2019-03-03 08:27] VITALS: BP 159/102
[2019-03-03 12:22] VITALS: BP 144/86
[2019-03-03 19:54] VITALS: BP 119/65
[2019-03-04 06:14] VITALS: BP 123/78
[2019-03-04 07:54] VITALS: BP 145/100
--- NOTE | 2019-03-04 10:59 | MORECARE ---
CASE MANAGEMENT DISCHARGE SUMMARY PATIENT: SUKHDEEP BATRES UNIT: [id number] ADM DATE: 03/03/19 AGE: 23 : [birth year] SEX: M ROOM/BED: D.1212 AUTHOR: CAT GALICIA PHYSICIAN: REFERRING PHYSICIAN: GRAY CUNHA MD DATE OF SERVICE: 03/04/19 Discharge Plan Patient Name: SUKHDEEP BATRES Facility: [facility]:[place] : 1995 Planned Disposition: Home Anticipated Discharge Date: Discharge Date: Expected LOS: Initial Reviewer: JOSE MANUEL Initial Review Date: 03/03/2019 Generated: 03/04/19 11:58 am DCPIA - Discharge Planning Initial Assessment Updated by [email or web address]: Leslye Perrin on 03/04/19 10:57 am * Is the patient Alert and Oriented? Yes * How many steps to enter\exit or inside your home? * PCP [place] * Pharmacy [facility] * Preadmission Environment Home with Family * ADLs Partial Dependent * Verbal permission to speak to the caregivers and representatives has been obtained from the patient. N/A * Additional services required to return to the preadmission environment? No * Can the patient safely return to the preadmission environment? Yes * Has this patient been hospitalized within the prior 30 days at any hospital? No Patient Name: SUKHDEEP BATRES Page 15402 at 1059 All edits/amendments must be made on the electronic document DICTATION DATE: 03/04/19 1058 RECEPTIONIST: EVITA 03/04/19 1058 RPT#: [id number] DC DATE: STATUS: ADM IN [facility] [address] [place] [address] END OF REPORT
--- NOTE | 2019-03-04 11:08 | MORECARE ---
CASE MANAGEMENT DISCHARGE SUMMARY PATIENT: SUKHDEEP BATRES UNIT: [id number] ADM DATE: 03/03/19 AGE: 23 : [birth year] SEX: M ROOM/BED: D.1212 AUTHOR: GRAYSON,DOC PHYSICIAN: REFERRING PHYSICIAN: GRAY CUNHA MD DATE OF SERVICE: 03/04/19 Discharge Plan Patient Name: SUKHDEEP BATRES Facility: [facility]:[place] : 1995 Planned Disposition: Home Anticipated Discharge Date: Discharge Date: Expected LOS: Initial Reviewer: JOSE MANUEL Initial Review Date: 03/03/2019 Generated: 03/04/19 12:07 pm Comments DCP- Discharge Planning Updated by [email or web address]: Leslye Perrin on 03/04/19 9:[address] Patient Name: SUKHDEEP BATRES Admission Status: ER Accout number: [id number] Admission Date: 03-03-2019 : 1995 Admission Diagnosis: Attending: GRAY CUNHA Current LOS: 1 Anticipated DC Date: Planned Disposition: Home Primary Insurance: MEDICARE A & B Discharge Planning Comments: CM met with patient to complete initial dc planning assessment. CM educated patient on the CM role and verbal consent given by patient to complete assessment. CM verified patient's address, phone number, and emergency contact phone numbers. Patient lives at home with family and reports he is independent in his care some what, He has spina bifida and has taken care of him self for years. At discharge patient plans to return home and feels this is a safe discharge. CM discussed availability of home health, rehab services, and medical equipment. Patient denied known discharge needs at this time.. . CM will continue to follow and will assist as needed with dc plans/needs. Stonemason Helper: Leslye Perrin DCPIA - Discharge Planning Initial Assessment Updated by [email or web address]: Leslye Perrin on 03/04/19 10:57 am * Is the patient Alert and Oriented? Yes * How many steps to enter\exit or inside your home? * PCP [place] * Pharmacy [facility] * Preadmission Environment Home with Family * ADLs Partial Dependent * Verbal permission to speak to the caregivers and representatives has been obtained from the patient. N/A * Additional services required to return to the preadmission environment? No * Can the patient safely return to the preadmission environment? Yes * Has this patient been hospitalized within the prior 30 days at any hospital? No Last DP export: 03/04/19 9:59 a Patient Name: SUKHDEEP BATRES Page [phone] at 1108 All edits/amendments must be made on the electronic document DICTATION DATE: 03/04/191106 EARLY CHILDHOOD EDUCATION SPECIALIST: EVITA 03/04/191106 RPT#: [id number] DC DATE: STATUS: ADM IN [facility] [address] [place] [address] END OF REPORT
[2019-03-04 11:30] VITALS: BP 151/100
[2019-03-04 17:14] VITALS: BP 142/96
[2019-03-04 19:45] VITALS: BP 144/96
[2019-03-05] VITALS: BP 149/93
[2019-03-05 05:29] VITALS: BP 145/93
[2019-03-05 08:00] VITALS: BP 134/112
[2019-03-05 10:56] LABS: BASOPHILS 0.3 % (0-2); EOSINOPHILS 2.6 % (0-7); HEMATOCRIT 40.6 % (42.0-54.0); HEMOGLOBIN 13.6 g/dL (13.5-17.5); IMMATURE GRANULOCYTES 0.1 % (0-5); LYMPHOCYTES 39.5 % (15-50); MCH 28.6 pg (26.0-34.0); MCHC 33.5 g/dL (31.0-37.0); MCV 85.5 fL (80.0-100.0); MEAN PLATELET VOLUME 9.5 fL (7.4-10.4); MONOCYTES 9.7 % (2-11); NEUTROPHILS 47.8 % (40-80); PLATELET COUNT 189 10x3/uL (130-400); RBC 4.75 10x6/uL (4.20-6.10); RDW 13.7 % (11.5-14.5); WBC 6.9 10x3/uL (4.8-10.8)
[2019-03-05 11:11] VITALS: BP 152/95
[2019-03-05 11:12] LABS: ALBUMIN 3.2 g/dL (3.4-5.0); ALKALINE PHOSPHATASE 103 U/L (46-116); ALT (SGPT) 29 U/L (10-68); BILIRUBIN - TOTAL 0.27 mg/dL (0.2-1.3); CALC OSMOLALITY 275 mosm/kg (275-300); CALCIUM 8.3 mg/dL (8.5-10.1); CHLORIDE - SERUM 106 mmol/L (98-107); CREATININE - SERUM 0.8 mg/dL (0.6-1.3); GLUCOSE 89 mg/dL (74-106); POTASSIUM - SERUM 3.8 mmol/L (3.5-5.1); SODIUM 139 mmol/L (136-145); UREA NITROGEN 11 mg/dL (7-18); eGFR NON AFRICAN AMERICAN > 90 mL/min (90-120)
[2019-03-05 20:00] VITALS: BP 144/73
[2019-03-06] VITALS: BP 130/85
[2019-03-06 04:00] VITALS: BP 126/83
[2019-03-06 07:52] VITALS: BP 164/109
[2019-03-06 12:30] VITALS: BP 120/71
[2019-03-06 12:56] LABS: APPEARANCE CLOUDY (CLEAR); BACTERIA FEW /hpf (NONE SEEN); BILIRUBIN NEGATIVE (NEGATIVE); COLOR PINK (YELLOW); EPITHELIAL CELLS RARE /hpf (0-5); GLUCOSE NEGATIVE (NEGATIVE); KETONE NEGATIVE (NEGATIVE); NITRITE NEGATIVE (NEGATIVE); PROTEIN NEGATIVE (NEGATIVE); RED CELLS - URINE >50 /hpf (0-5); UROBILINOGEN NORMAL (NORMAL); WHITE CELLS - URINE 0-5 /hpf (0-5)
[2019-03-06] MEDS ORDERED: BACTRIM 400-801 TAB PO (13:57)
--- NOTE | 2019-03-06 20:19 | MORECARE ---
CASE MANAGEMENT DISCHARGE SUMMARY PATIENT: SUKHDEEP BATRES UNIT: [id number] ADM DATE: 03/03/19 AGE: 23 : [birth year] SEX: M ROOM/BED: D.1212 AUTHOR: GRAYSON,DOC PHYSICIAN: REFERRING PHYSICIAN: GRAY CUNHA MD DATE OF SERVICE: 03/06/19 Discharge Plan Patient Name: SUKHDEEP BATRES Facility: [facility]:[place] : 1995 Planned Disposition: Home Anticipated Discharge Date: Discharge Date: 03/06/2019 Expected LOS: Initial Reviewer: [email or web address] Initial Review Date: 03/03/2019 Generated: 03/06/19 9:18 pm Comments DCP- Discharge Planning Updated by [email or web address]: Ching Sanches on 03/06/19 7:[address] Patient Name: SUKHDEEP BATRES Encounter No: [id number] : 1995 Primary Insurance: MEDICARE A & B Anticipated DC Date: Planned Disposition: Home External Planned Provider: : laura BROWN 03/06/19 @ 1545 DCP follow-up note: Patient and family in agreement with discharge plan. No changes to plan. Case management will follow and assist as needed. Ching Sanches DCP- Discharge Planning Updated by [email or web address]: Leslye Perrin on 03/04/19 9:[address] Patient Name: SUKHDEEP BATRES Admission Status: ER Accout number: [id number] Admission Date: 03-03-2019 : 1995 Admission Diagnosis: Attending: GRAY CUNHA Current LOS: 1 Anticipated DC Date: Planned Disposition: Home Primary Insurance: MEDICARE A & B Discharge Planning Comments: CM met with patient to complete initial dc planning assessment. CM educated patient on the CM role and verbal consent given by patient to complete assessment. CM verified patient's address, phone number, and emergency contact phone numbers. Patient lives at home with family and reports he is independent in his care some what, He has spina bifida and has taken care of him self for years. At discharge patient plans to return home and feels this is a safe discharge. CM discussed availability of home health, rehab services, and medical equipment. Patient denied known discharge needs at this time.. . CM will continue to follow and will assist as needed with dc plans/needs. Secretary Book Keeper: Leslye Perrin DCPIA - Discharge Planning Initial Assessment Updated by [email or web address]: Leslye Chaudhariman on 03/04/19 10:57 am * Is the patient Alert and Oriented? Yes * How many steps to enter\exit or inside your home? * PCP [place] * Pharmacy [facility] * Preadmission Environment Home with Family * ADLs Partial Dependent * Verbal permission to speak to the caregivers and representatives has been obtained from the patient. N/A * Additional services required to return to the preadmission environment? No * Can the patient safely return to the preadmission environment? Yes * Has this patient been hospitalized within the prior 30 days at any hospital? No Coverage Notice Reviewer: [id number] Yohannes Sanchse Notice Issued Date-Time: 03/06/2019 20:14 Notice Type: IM Discharge Notice Notice Delivered To: Patient Relationship to Patient: Self Quilt Maker Name: Delivery Method: HAND - Hand Delivered Brisa Days: Prior Verbal Notification: Recipient Understood Notice: Yes Recipient Signature: Yes Med Rec Note Co-signed by Attending: Coverage Notice Comment: Last DP export: 03/04/19 10:08 a Patient Name: SUKHDEEP BATRES Page 90613 at 2019 All edits/amendments must be made on the electronic document DICTATION DATE: 03/06/192017 STAFFING ANALYST: EVITA 03/06/19 2018 RPT#: [id number] DC DATE:03/06/19 STATUS: DIS IN [facility] [address] [place] [address] END OF REPORT
== END 2019-03-06 16:12 | disposition home or self-care (01) | DRG 699 ==
LOC: D.ER 21:21 → OBSVTIME 23:20 → D.M2 23:20 → D.SDCHOLD 03-03 11:58 → D.M2 03-03 12:02 → D.M3 03-03 15:25
PROVIDERS: Family Medicine; ADMIT Internal Medicine Nephrology; ATTEND Internal Medicine Nephrology
DX: T83.098A Other mechanical complication of other urinary catheter, initial encounter (principal); N39.0 Urinary tract infection, site not specified; G82.20 Paraplegia, unspecified; N17.9 Acute kidney failure, unspecified; N13.30 Unspecified hydronephrosis; Y83.9 Surgical procedure, unspecified as the cause of abnormal reaction of the patient, or of later complication, without mention of misadventure at the time of the procedure; Q05.9 Spina bifida, unspecified; N31.9 Neuromuscular dysfunction of bladder, unspecified; F17.210 Nicotine dependence, cigarettes, uncomplicated

== ENCOUNTER 2019-04-07 16:26 | Emergency (ER) | payer MEDICARE ==
[~2019-04-07] VITALS: Ht 172.7 cm; Wt 54.5 kg
[~2019-04-07 16:26] MED LIST changes: +BACTRIM 400-801 TAB PO
[2019-04-07 16:32] VITALS: Ht 172.7 cm; Wt 54.5 kg
[2019-04-07 17:25] LABS: BASOPHILS 0.1 % (0-2); EOSINOPHILS 2.2 % (0-7); HEMATOCRIT 46.3 % (42.0-54.0); HEMOGLOBIN 15.4 g/dL (13.5-17.5); IMMATURE GRANULOCYTES 0.4 % (0-5); MCH 28.8 pg (26.0-34.0); MCHC 33.3 g/dL (31.0-37.0); MCV 86.5 fL (80.0-100.0); MEAN PLATELET VOLUME 9.7 fL (7.4-10.4); MONOCYTES 7.1 % (2-11); NEUTROPHILS 60.2 % (40-80); PLATELET COUNT 199 10x3/uL (130-400); RBC 5.35 10x6/uL (4.20-6.10); RDW 14.5 % (11.5-14.5); WBC 6.9 10x3/uL (4.8-10.8)
[2019-04-07 17:43] LABS: ALBUMIN 3.8 g/dL (3.4-5.0); ALKALINE PHOSPHATASE 111 U/L (46-116); ALT (SGPT) 39 U/L (10-68); BILIRUBIN - TOTAL 0.34 mg/dL (0.2-1.3); CALC OSMOLALITY 285 mosm/kg (275-300); CALCIUM 9.1 mg/dL (8.5-10.1); CHLORIDE - SERUM 108 mmol/L (98-107); CREATININE - SERUM 0.8 mg/dL (0.6-1.3); GLUCOSE 110 mg/dL (74-106); POTASSIUM - SERUM 3.8 mmol/L (3.5-5.1); PROTEIN - SERUM 7.7 g/dL (6.4-8.2); SODIUM 142 mmol/L (136-145); UREA NITROGEN 17 mg/dL (7-18); eGFR NON AFRICAN AMERICAN > 90 mL/min (90-120)
[2019-04-07 22:39] LABS: APPEARANCE CLEAR (CLEAR); BILIRUBIN NEGATIVE (NEGATIVE); COLOR YELLOW (YELLOW); GLUCOSE NEGATIVE (NEGATIVE); KETONE NEGATIVE (NEGATIVE); NITRITE POSITIVE (NEGATIVE); PROTEIN TRACE mg/dL (NEGATIVE); SPECIFIC GRAVITY 1.015 (1.005-1.020); UROBILINOGEN NORMAL (NORMAL)
[2019-04-07 22:40] LABS: BACTERIA MANY /hpf (NONE SEEN); RED CELLS - URINE 0-5 /hpf (0-5)
[2019-04-07] MEDS ORDERED: TYLENOL W/CODEI1 TAB PO (23:17)
[2019-04-07] MEDS ORDERED: LEVOFLOXACIN500 MG PO (23:17)
[2019-04-08 00:36] VITALS: BP 148/104
== END 2019-04-08 00:38 | disposition home or self-care (01) ==
LOC: D.ER 16:26
PROVIDERS: Emergency Medicine
DX: M54.5 Low back pain (principal); Q05.9 Spina bifida, unspecified; N39.0 Urinary tract infection, site not specified

== ENCOUNTER 2019-04-19 22:32 | Outpatient (CLI) | payer MEDICARE ==
[~2019-04-19 22:32] MED LIST changes: +LEVOFLOXACIN500 MG PO
[2019-04-19] MEDS ORDERED: MACROBID100 MG PO (22:40)
[2019-04-20] MEDS ORDERED: FLORAJEN3 CAPS460 MG PO (15:58)
[2019-04-20] MEDS ORDERED: LEVAQUIN750 MG PO (15:58)
[2019-05-03 03:14] VITALS: BMI 22.8
== END 2019-04-20 15:15 | disposition other institution (70) ==
LOC: D.OPS 22:32
PROVIDERS: ATTEND Family Medicine Adult Medicine
DX: R11.10 Vomiting, unspecified (principal); R52 Pain, unspecified

== ENCOUNTER 2019-04-19 22:32 | Inpatient (IN) | payer MEDICARE ==
[~2019-04-19] VITALS: Ht 172.7 cm; Wt 70.5 kg
[2019-04-19] MEDS ORDERED: MACROBID100 MG PO (22:40)
[2019-04-19 23:06] LABS: BASOPHILS 0.1 % (0-2); EOSINOPHILS 0.9 % (0-7); HEMATOCRIT 45.6 % (42.0-54.0); HEMOGLOBIN 15.8 g/dL (13.5-17.5); IMMATURE GRANULOCYTES 0.2 % (0-5); LYMPHOCYTES 8.6 % (15-50); MCH 28.9 pg (26.0-34.0); MCHC 34.6 g/dL (31.0-37.0); MCV 83.5 fL (80.0-100.0); MEAN PLATELET VOLUME 9.4 fL (7.4-10.4); MONOCYTES 6.2 % (2-11); PLATELET COUNT 225 10x3/uL (130-400); RBC 5.46 10x6/uL (4.20-6.10); RDW 14.3 % (11.5-14.5)
[2019-04-19 23:10] LABS: APPEARANCE HAZY (CLEAR); BACTERIA NONE SEEN /hpf (NONE SEEN); BILIRUBIN NEGATIVE (NEGATIVE); COLOR YELLOW (YELLOW); EPITHELIAL CELLS NSEEN /hpf (0-5); GLUCOSE NEGATIVE (NEGATIVE); KETONE NEGATIVE (NEGATIVE); NITRITE NEGATIVE (NEGATIVE); PROTEIN NEGATIVE (NEGATIVE); RED CELLS - URINE 0-5 /hpf (0-5); SPECIFIC GRAVITY 1.015 (1.005-1.020); UROBILINOGEN NORMAL (NORMAL); WHITE CELLS - URINE 0-5 /hpf (0-5)
[2019-04-19 23:28] LABS: ALBUMIN 4.2 g/dL (3.4-5.0); ALKALINE PHOSPHATASE 128 U/L (46-116); ALT (SGPT) 53 U/L (10-68); BILIRUBIN - TOTAL 1.13 mg/dL (0.2-1.3); CALC OSMOLALITY 278 mosm/kg (275-300); CALCIUM 8.9 mg/dL (8.5-10.1); CARBON DIOXIDE 23.2 mmol/L (21.0-32.0); CHLORIDE - SERUM 102 mmol/L (98-107); CREATININE - SERUM 0.8 mg/dL (0.6-1.3); GLUCOSE 99 mg/dL (74-106); LIPASE 114 U/L (73-393); POTASSIUM - SERUM 3.8 mmol/L (3.5-5.1); PROTEIN - SERUM 7.9 g/dL (6.4-8.2); SODIUM 140 mmol/L (136-145); UREA NITROGEN 12 mg/dL (7-18); eGFR NON AFRICAN AMERICAN > 90 mL/min (90-120)
[2019-04-19 23:44] VITALS: BP 147/97
[2019-04-20 00:10] LABS: UDS - AMPHET NEGATIVE QUAL (NEGATIVE); UDS - BARB NEGATIVE QUAL (NEGATIVE); UDS - BENZO NEGATIVE QUAL (NEGATIVE); UDS - COCAINE NEGATIVE QUAL (NEGATIVE); UDS - OPIATE NEGATIVE QUAL (NEGATIVE); UDS - PCP NEGATIVE QUAL (NEGATIVE); UDS - THC POSITIVE QUAL (NEGATIVE)
--- NOTE | 2019-04-20 00:51 | NUR ---
PT RETURNED FROM CT AT THIS TIME. NO DISTRESS NOTED. RESPIRATIONS ARE EVEN AND UNLABORED. COLOR WNL FOR RACE. VSS. WILL CONTINUE TO MONITOR.
--- NOTE | 2019-04-20 03:00 | NUR ---
RECEIVED PT FROM ER VIA STRETCHER. HX OF SPINA BIFIDA WITH PARAPLEGIA. BLE ARE FLACCID. ALERT AND ORIENTED X4 BUT FORGETFUL. VERY TALKATIVE. RATES PAIN IN EPIGASTRIC AREA 8. VOMITED PRIOR TO GETTING TO ROOM. GREEN EMESIS NOTED IN BAG. REPORTS LAST BM YESTERDAY. RESP EVEN AND NONLABORED. SALINE LOCK NOTED TO LT HAND. STARTED NS @ 125 ML/HR AND STARTED LEAKING. IV CATH REMOVED AND RESTARTED IN RT FOREARM WITH 22G. HAS SUPRAPUBIC CATH WITH JOELLE URINE. REPORTS RECENT UTI. PT IS W/C BOUND BUT LEFT W/C AT HOME. NOLVIA ALARM IN USE FOR PT SAFETY. TRIED TO DENY THC USE BUT INFORMED THAT UDS WAS POSITIVE FOR THC. STATES HE SMOKED MARIJUANA APPROX A MONTH AGO. SR ELEVATED X2. CL IN REACH.
[2019-04-20 03:35] VITALS: BP 156/96; Ht 172.7 cm; Wt 70.5 kg
[2019-04-20 08:28] VITALS: BP 144/82
[2019-04-20 08:54] LABS: BASOPHILS 0.1 % (0-2); EOSINOPHILS 1.9 % (0-7); HEMOGLOBIN 14.1 g/dL (13.5-17.5); IMMATURE GRANULOCYTES 0.5 % (0-5); LYMPHOCYTES 22.1 % (15-50); MCHC 34.4 g/dL (31.0-37.0); MCV 84.4 fL (80.0-100.0); MEAN PLATELET VOLUME 9.1 fL (7.4-10.4); MONOCYTES 8.2 % (2-11); NEUTROPHILS 67.2 % (40-80); PLATELET COUNT 181 10x3/uL (130-400); RBC 4.86 10x6/uL (4.20-6.10); RDW 14.4 % (11.5-14.5); WBC 7.8 10x3/uL (4.8-10.8)
--- NOTE | 2019-04-20 09:00 | NUR ---
PT REUESTED PAIN MEDICATION AND STATED THAT HE IS NAUSEOUS BUT THINKS ITS DUE TO NOT EATING IN OVER 24 OURS. PT STATED HE WANTED TO SPEAK TO DR IN REGARDS TO CHANGING DIET ORDER, ADVISED APPRENTICE PLUMBER SHOULD BE UP SHORTLY, NO OTHER NEEDS VOICED, ADMINISTERED PRN PAIN MEDICATION, CONTINUE WITH PLAN OF CARE
[2019-04-20 12:51] VITALS: BP 137/98
--- NOTE | 2019-04-20 15:13 | NUR ---
I have reviewed this patient and I concur with the Shift Assessment completed by the Licensed Practical Nurse today this shift.
[2019-04-20] MEDS ORDERED: FLORAJEN3 CAPS460 MG PO (15:58)
[2019-04-20] MEDS ORDERED: LEVAQUIN750 MG PO (15:58)
--- NOTE | 2019-04-24 16:23 | MORECARE ---
CASE MANAGEMENT DISCHARGE SUMMARY PATIENT: SUKHDEEP BATRES UNIT: [id number] ADM DATE: 04/20/19 AGE: 23 : [birth year] SEX: M ROOM/BED: D.2237 AUTHOR: CAT GALICIA PHYSICIAN: REFERRING PHYSICIAN: GRAY CUNHA MD DATE OF SERVICE: 04/24/19 Discharge Plan Patient Name: SUKHDEEP BATRES Facility: [facility]:[place] : 1995 Planned Disposition: Anticipated Discharge Date: Discharge Date: 04/20/2019 Expected LOS: 0 Initial Reviewer: [email or web address] Initial Review Date: 04/24/2019 Generated: 04/24/19 5:23 pm Patient Name: SUKHDEEP BATRES Page 20834 at 1623 All edits/amendments must be made on the electronic document DICTATION DATE: 04/24/191622 PROCESS MANUFACTURING ENGINEER: EVITA 04/24/19 162 RPT#: [id number] DC DATE:04/20/19 STATUS: DIS IN [facility] [address] [place] [address] END OF REPORT
== END 2019-04-20 17:55 | disposition home or self-care (01) | DRG 690 ==
LOC: D.ER 22:32 → OBSVTIME 04-20 01:47 → D.MS 04-20 01:47
PROVIDERS: Family Medicine; ADMIT Internal Medicine Nephrology; ATTEND Internal Medicine Nephrology
DX: N39.0 Urinary tract infection, site not specified (principal); F17.203 Nicotine dependence unspecified, with withdrawal; G82.20 Paraplegia, unspecified; N10 Acute pyelonephritis; E86.0 Dehydration; Z96.0 Presence of urogenital implants; F12.929 Cannabis use, unspecified with intoxication, unspecified; Q05.9 Spina bifida, unspecified

== ENCOUNTER 2019-05-03 00:13 | Inpatient (IN) | payer MEDICARE ==
[~2019-05-03] VITALS: Ht 172.7 cm; Wt 70.9 kg
[~2019-05-03 00:13] MED LIST changes: +LEVAQUIN750 MG PO; +MACROBID100 MG PO
[2019-05-03 00:58] LABS: BASOPHILS 0.1 % (0-2); EOSINOPHILS 0.9 % (0-7); HEMATOCRIT 47.4 % (42.0-54.0); HEMOGLOBIN 16.6 g/dL (13.5-17.5); IMMATURE GRANULOCYTES 0.2 % (0-5); LYMPHOCYTES 13.2 % (15-50); MCH 29.7 pg (26.0-34.0); MCV 84.8 fL (80.0-100.0); MEAN PLATELET VOLUME 9.8 fL (7.4-10.4); MONOCYTES 7.7 % (2-11); NEUTROPHILS 77.9 % (40-80); RBC 5.59 10x6/uL (4.20-6.10); RDW 14.3 % (11.5-14.5)
[2019-05-03 01:00] LABS: PLATELET COUNT 219 10x3/uL (130-400)
[2019-05-03 01:12] LABS: APTT 31.4 SECONDS (22.8-39.4); INR 1.09 (0.85-1.17); PROTIME 13.6 SECONDS (11.6-15.0)
[2019-05-03 01:13] LABS: ALBUMIN 4.7 g/dL (3.4-5.0); ALKALINE PHOSPHATASE 129 U/L (46-116); ALT (SGPT) 57 U/L (10-68); BILIRUBIN - TOTAL 0.53 mg/dL (0.2-1.3); CALC OSMOLALITY 284 mosm/kg (275-300); CALCIUM 9.3 mg/dL (8.5-10.1); CARBON DIOXIDE 27.9 mmol/L (21.0-32.0); CHLORIDE - SERUM 104 mmol/L (98-107); CREATININE - SERUM 0.7 mg/dL (0.6-1.3); GLUCOSE 103 mg/dL (74-106); POTASSIUM - SERUM 3.8 mmol/L (3.5-5.1); PROTEIN - SERUM 8.9 g/dL (6.4-8.2); SODIUM 142 mmol/L (136-145); UREA NITROGEN 18 mg/dL (7-18); eGFR NON AFRICAN AMERICAN > 90 mL/min (90-120)
[2019-05-03 01:30] LABS: CKMB 0.6 U/L (0.0-3.6); CREATINE KINASE 172 UL (21-232); PRO BNP 9 pg/mL (0-125); TROPONIN-I < 0.017 ng/mL (0.000-0.060)
[2019-05-03 01:55] VITALS: BP 123/91
[2019-05-03] MEDS ORDERED: SULFAMETHOXAZOL1 TA2 PO (02:49)
[2019-05-03 03:14] VITALS: BP 139/90; Ht 172.7 cm; Wt 70.9 kg
--- NOTE | 2019-05-03 07:19 | NUR ---
PT IS RESTING IN BED WITH EYES OPEN. RESPIRATIONS ARE EVEN AND UNLABORED. PT REPORTS BURNING SENSATION IN CHEST AND REPORTS PAIN TO BACK OF NECK DESCRIBED SHARP AND SHOOTING. PT REPORTS NAUSEA WITH CHEST SENSATION. WILL ADDRESS WITH PAIN MEDICATION AND ANTIEMETIC. SEE EMAR. SUPRAPUBIC CATH NOTED AND IS DRAINING WITHOUT DIFFICULTY. PT WITH PARALYSIS/CONTRACTIONS TO BILATERAL LOWER EXETREMITIES. WARM COMPRESS GIVEN TO PT FOR NECK COMFORT. EXTRA PILLOW GIVEN FOR ASSISTANCE WITH REPOSITIONING. BED IS IN THE LOWEST POSITION. CALL LIGHT AND BEDSIDE TABLE ARE WITHIN REACH. SIDE RAILS X 2. PT DENIES FURTHER NEEDS. WILL CONT TO MONITOR.
--- NOTE | 2019-05-03 07:37 | NUR ---
ask to have paster or preast called this am , page made awatting call back.
[2019-05-03 08:27] LABS: BASOPHILS 0 % (0-2); EOSINOPHILS 0 % (0-7); HEMATOCRIT 43.6 % (42.0-54.0); HEMOGLOBIN 14.8 g/dL (13.5-17.5); IMMATURE GRANULOCYTES 0.3 % (0-5); LYMPHOCYTES 6.3 % (15-50); MCH 29.2 pg (26.0-34.0); MCHC 33.9 g/dL (31.0-37.0); MCV 86.2 fL (80.0-100.0); MEAN PLATELET VOLUME 9.7 fL (7.4-10.4); MONOCYTES 1.1 % (2-11); NEUTROPHILS 92.3 % (40-80); PLATELET COUNT 203 10x3/uL (130-400); RBC 5.06 10x6/uL (4.20-6.10); RDW 14.5 % (11.5-14.5)
[2019-05-03 08:40] LABS: ALBUMIN 3.9 g/dL (3.4-5.0); ALKALINE PHOSPHATASE 113 U/L (46-116); ALT (SGPT) 45 U/L (10-68); BILIRUBIN - TOTAL 0.31 mg/dL (0.2-1.3); CALC OSMOLALITY 284 mosm/kg (275-300); CHLORIDE - SERUM 107 mmol/L (98-107); GLUCOSE 149 mg/dL (74-106); POTASSIUM - SERUM 3.9 mmol/L (3.5-5.1); PROTEIN - SERUM 8.1 g/dL (6.4-8.2); SODIUM 141 mmol/L (136-145); UREA NITROGEN 15 mg/dL (7-18)
[2019-05-03 08:42] LABS: eGFR NON AFRICAN AMERICAN > 90 mL/min (90-120)
[2019-05-03 09:16] VITALS: BP 136/80
--- NOTE | 2019-05-03 10:56 | NUR ---
PT FATHER WITH CONCERNS PERTAINING TO THE CHANGING OF PT SUPRAPUBIC CATHETER. PT AND PT DAD STATES THAT IT IS "SUPPOSED TO BE CHANGED AROUND THE ". PT REQUESTS TO LEAVE CATHETER UNTIL "BREATHING AND PAIN GET BETTER UNDER CONTROL".
--- NOTE | 2019-05-03 11:21 | NUR ---
PT STATES THAT HE HAS HAD 2 PREVIOUS FALLS WITHIN THE LAST 60 DAYS. PT WAS UNSURE IF THE MEDICAL TEAM WAS AWARE AND WANTED TO NOTIFY OF RECENT FALLS AT HOME.
--- NOTE | 2019-05-03 12:29 | NUR ---
PT STATES CONCERNS RELATED TO BEING DISCHARGE "TOO SOON". PT STATES THAT HE "KNOWS THAT SOMETHING IS GOING ON AND THAT ITS PNA" BECAUSE HE THREW UP "THIS YELLOW STUFF AND THAT IS WHAT HAPPENED LAST TIME I HAD PNA". PT REPORTS THAT HE DOES NOT BELIEVE THAT HE IS READY TO BE DISCHARGED AT THIS TIME.
[2019-05-03 12:30] VITALS: BP 152/55; BP 153/55
--- NOTE | 2019-05-03 13:30 | NUR ---
PT REPORTS THAT HE IS "GETTING WORSE" AND STATES "I FEEL HOT". TEMPERATURE OBTAINED. PT IS AFEBRILE AT THIS TIME. NO APPARENT S/S OF DISTRESS AT THIS TIME. BED IS IN THE LOWEST POSITION. CALL LIGHT AND BEDSIDE TABLE ARE WITHIN REACH. SIDE RAILS X 2. WILL CONT TO MONITOR.
--- NOTE | 2019-05-03 13:49 | NUR ---
CATHETER CLAMPED FOR URINE SPECIMEN
--- NOTE | 2019-05-03 14:09 | NUR ---
URINE SPECIMEN OBTAINED. CATHETER UNCLAMPED.
[2019-05-03 14:45] LABS: APPEARANCE CLOUDY (CLEAR); BILIRUBIN NEGATIVE (NEGATIVE); COLOR STRAW (YELLOW); GLUCOSE 1000 mg/dL (NEGATIVE); KETONE NEGATIVE (NEGATIVE); NITRITE POSITIVE (NEGATIVE); PROTEIN TRACE mg/dL (NEGATIVE); SPECIFIC GRAVITY 1.005 (1.005-1.020); UROBILINOGEN NORMAL (NORMAL)
[2019-05-03 14:52] LABS: RED CELLS - URINE 0-5 /hpf (0-5); WHITE CELLS - URINE 0-5 /hpf (NEGATIVE)
[2019-05-03 14:53] LABS: BACTERIA MANY /hpf (NEGATIVE); EPITHELIAL CELLS NSEEN /hpf (0-5)
[2019-05-03 20:40] VITALS: BP 149/95
--- NOTE | 2019-05-03 22:07 | NUR ---
resting in bed c/o IV beepping in left AC. resited to right fr. atempts x3 24 g. with ns at 125. telemerty in place. SCD's in place. Refused bath . call light and water in shasta. bed low. alarm in place.
--- NOTE | 2019-05-03 22:12 | NUR ---
resting in bed with family at bedside. left arm reserv, fistula in place to left arm. iv in place and paten to right upper arm with ns at 15 6 lap sites CDI. O2 at 4 l. c-pap at night. no needs at this time. call light and water in reach.
[2019-05-04 01:10] VITALS: BP 190/86
[2019-05-04 05:18] VITALS: BP 120/75
[2019-05-04 06:12] LABS: BASOPHILS 0.1 % (0-2); EOSINOPHILS 0.5 % (0-7); HEMATOCRIT 40.5 % (42.0-54.0); HEMOGLOBIN 13.7 g/dL (13.5-17.5); IMMATURE GRANULOCYTES 0.3 % (0-5); LYMPHOCYTES 21.4 % (15-50); MCH 29.1 pg (26.0-34.0); MCHC 33.8 g/dL (31.0-37.0); MEAN PLATELET VOLUME 9.9 fL (7.4-10.4); MONOCYTES 9.1 % (2-11); NEUTROPHILS 68.6 % (40-80); PLATELET COUNT 199 10x3/uL (130-400); RBC 4.71 10x6/uL (4.20-6.10); RDW 14.6 % (11.5-14.5); WBC 10.6 10x3/uL (4.8-10.8)
[2019-05-04 07:02] LABS: ALBUMIN 3.5 g/dL (3.4-5.0); ALKALINE PHOSPHATASE 97 U/L (46-116); BILIRUBIN - TOTAL 0.33 mg/dL (0.2-1.3); CALCIUM 8.1 mg/dL (8.5-10.1); CHLORIDE - SERUM 110 mmol/L (98-107); POTASSIUM - SERUM 3.7 mmol/L (3.5-5.1); PROTEIN - SERUM 7.2 g/dL (6.4-8.2); SODIUM 143 mmol/L (136-145)
[2019-05-04 07:03] LABS: ALT (SGPT) 31 U/L (10-68); CALC OSMOLALITY 283 mosm/kg (275-300); CREATININE - SERUM 0.7 mg/dL (0.6-1.3); GLUCOSE 98 mg/dL (74-106); UREA NITROGEN 9 mg/dL (7-18); eGFR NON AFRICAN AMERICAN > 90 mL/min (90-120)
--- NOTE | 2019-05-04 07:40 | NUR ---
PT RESTING IN BED. NO ACUTE DISTRESS NOTED AT THIS TIME. C/O PAIN 9/10 AT THIS TIME. DISCUSSED NEXT DOSE DUE WITH PATIENT. VOICES UNDERSTANDING. IV TO LEFT AC WITH NS @ 125ML/HR INFUSING VIA PUMP. SITE WITHOUT REDNESS OR EDEMA. SALINE LOC TO RIGHT FOREARM. SITE WITHOUT REDNESS OR EDEMA. LIMITED ROM OF BILAT LOWER EXTREMITIES. S/P CATH INTACT AND DRAINING YELLOW URINE. DENIES FURTHER NEEDS AT THIS TIME. CL WITHIN REACH. ENCOURAGED TO CALL WITH NEEDS.
[2019-05-04 08:38] VITALS: BP 125/65
[2019-05-04 12:40] VITALS: BP 167/99
[2019-05-04 17:20] VITALS: BP 142/94
--- NOTE | 2019-05-04 19:11 | NUR ---
UP IN BED, TELEVISION ON, SHOWS NO S/S OF ANY DISTRESS. ABLE TO VOICE ALL NEEDS. IV TO LEFT AC INFUSING VIA PUMP PER ORDERS, S/P CATH DRAINING TO CDS. WILL NOTE ANY CHANGE.
[2019-05-04 20:00] VITALS: BP 146/87
--- NOTE | 2019-05-04 22:30 | NUR ---
AT 2129 COMPLAINTS OF PAIN AND NAUSEA, THIS NURSE ATTEMPTED TO EDUCATE PT ON DIETARY CHOICES TO ALSO HELP ALLEVIATE THE NAUSEA FEELING, HE STATED HE JUST CAN'T CHANGE HIS HABITS, MEDICATION ADMINISTERED PRESCRIBED FOR PAIN AND NAUSEA. AT THIS TIME, HE IS RESTING QUIETLY.
[2019-05-05] VITALS: BP 143/77
--- NOTE | 2019-05-05 00:30 | NUR ---
NURSE ENTERED ROOM AND PT IS COMPLAINING OF NECK PAIN, BUT IS NOT LAYING DOWN OR ATTEMPTING TO REPOSITION, IS SITTING UP IN BED WITH NO SUPPORT TO BACK OR NECK, HE ALSO SAYS HIS IV IS BOTHERING HIM, UPON ASSESMENT IT IS PATENT AND SHOWS NO S/S OF ANY INFILTRATION. THE IV TO HIS RIGHT FOREARM IS UNABLE TO BE FLUSHED PROPERLY, AND WITH THE LEFT ONE FLUSHING PROPERLY, THIS NURSE FINDS NO REASON TO RESITE AT THIS TIME. ENCOURAGED PT TO REPOSITION IN BED AND ATTEMPTED TO EDUCATE PT ON THE NORMAL PAIN EFFECTS PNEUMONIA HAS AFTER HE SAYS HE DOES NOT FEEL GOOD, VITALS ARE STABLE AT THIS TIME. WILL NOTE ANY CHANGE.
[2019-05-05 04:00] VITALS: BP 118/70
--- NOTE | 2019-05-05 04:06 | NUR ---
I have reviewed this patient and I concur with the Shift Assessment completed by the Licensed Practical Nurse today this shift.
[2019-05-05 06:33] LABS: BASOPHILS 0.2 % (0-2); EOSINOPHILS 2.2 % (0-7); HEMATOCRIT 40.7 % (42.0-54.0); HEMOGLOBIN 13.8 g/dL (13.5-17.5); IMMATURE GRANULOCYTES 0.4 % (0-5); LYMPHOCYTES 29.9 % (15-50); MCH 29.1 pg (26.0-34.0); MCHC 33.9 g/dL (31.0-37.0); MCV 85.9 fL (80.0-100.0); MEAN PLATELET VOLUME 9.8 fL (7.4-10.4); MONOCYTES 9.6 % (2-11); NEUTROPHILS 57.7 % (40-80); PLATELET COUNT 214 10x3/uL (130-400); RBC 4.74 10x6/uL (4.20-6.10); RDW 14.8 % (11.5-14.5); WBC 8.3 10x3/uL (4.8-10.8)
[2019-05-05 07:04] LABS: ALBUMIN 3.6 g/dL (3.4-5.0); ALKALINE PHOSPHATASE 98 U/L (46-116); ALT (SGPT) 34 U/L (10-68); BILIRUBIN - TOTAL 0.29 mg/dL (0.2-1.3); CALC OSMOLALITY 276 mosm/kg (275-300); CALCIUM 8.6 mg/dL (8.5-10.1); CARBON DIOXIDE 24.5 mmol/L (21.0-32.0); CHLORIDE - SERUM 104 mmol/L (98-107); CREATININE - SERUM 0.6 mg/dL (0.6-1.3); GLUCOSE 83 mg/dL (74-106); POTASSIUM - SERUM 3.5 mmol/L (3.5-5.1); PROTEIN - SERUM 7.2 g/dL (6.4-8.2); SODIUM 140 mmol/L (136-145); UREA NITROGEN 11 mg/dL (7-18); eGFR NON AFRICAN AMERICAN > 90 mL/min (90-120)
[2019-05-05 08:52] VITALS: BP 128/65
[2019-05-05 12:03] VITALS: BP 118/61
--- NOTE | 2019-05-05 15:25 | NUR ---
PATIENT RESTING. CL IN REACH. NO NEEDS AT THIS TIME.
[2019-05-05 17:02] VITALS: BP 152/50
--- NOTE | 2019-05-05 18:01 | NUR ---
NO NEEDS AT THIS TIME. CL IN REACH. WCTM
[2019-05-05 20:34] VITALS: BP 145/85
--- NOTE | 2019-05-05 23:00 | NUR ---
IV RESITED TO RIGHT AC. IV TO LEFT ARM WAS DCD WITH TIP INTACT.
[2019-05-06 01:22] VITALS: BP 146/98
--- NOTE | 2019-05-06 02:26 | NUR ---
SPONTANEOUS EPISTAXIS NOTED, LINENS AND CLOTHING CHANGE, NURSING INTERVENTIONS IN PLACE. IT WAS NOTED THAT HE HAD SOME BLOODY FORMED DISCHARGE FROM NASAL CAVITY ON TISSUE EARLIER IN SHIFT, ENCOURAGED PT TO KEEP NOSE PINCHED WITH TOWEL FOR TEN MINUTES AND REASSES IF BLEEDING CONTINUES. WILL NOTE ANY CHANGE.
--- NOTE | 2019-05-06 03:07 | NUR ---
I have reviewed this patient and I concur with the Shift Assessment completed by the Licensed Practical Nurse today this shift.
[2019-05-06 05:18] VITALS: BP 151/100
[2019-05-06 06:02] LABS: BASOPHILS 0.1 % (0-2); EOSINOPHILS 2.8 % (0-7); HEMATOCRIT 41.1 % (42.0-54.0); HEMOGLOBIN 13.9 g/dL (13.5-17.5); IMMATURE GRANULOCYTES 0.4 % (0-5); LYMPHOCYTES 30.1 % (15-50); MCH 28.7 pg (26.0-34.0); MCHC 33.8 g/dL (31.0-37.0); MCV 84.9 fL (80.0-100.0); MEAN PLATELET VOLUME 9.8 fL (7.4-10.4); NEUTROPHILS 57.6 % (40-80); PLATELET COUNT 232 10x3/uL (130-400); RBC 4.84 10x6/uL (4.20-6.10); RDW 14.5 % (11.5-14.5); WBC 7.5 10x3/uL (4.8-10.8)
[2019-05-06 06:31] LABS: ALBUMIN 3.8 g/dL (3.4-5.0); ALKALINE PHOSPHATASE 106 U/L (46-116); ALT (SGPT) 37 U/L (10-68); BILIRUBIN - TOTAL 0.36 mg/dL (0.2-1.3); CALC OSMOLALITY 273 mosm/kg (275-300); CALCIUM 8.6 mg/dL (8.5-10.1); CARBON DIOXIDE 24.7 mmol/L (21.0-32.0); CHLORIDE - SERUM 104 mmol/L (98-107); CREATININE - SERUM 0.7 mg/dL (0.6-1.3); GLUCOSE 92 mg/dL (74-106); POTASSIUM - SERUM 3.9 mmol/L (3.5-5.1); PROTEIN - SERUM 7.3 g/dL (6.4-8.2); SODIUM 138 mmol/L (136-145); UREA NITROGEN 8 mg/dL (7-18); eGFR NON AFRICAN AMERICAN > 90 mL/min (90-120)
[2019-05-06 08:57] VITALS: BP 136/82
--- NOTE | 2019-05-06 11:00 | NUR ---
PATIENT REQUESTED SOME GERMAINE. WAS PROVIDED. CL IN REACH. WCTM
[2019-05-06 12:11] VITALS: BP 152/106
--- NOTE | 2019-05-06 16:14 | MORECARE ---
CASE MANAGEMENT DISCHARGE SUMMARY PATIENT: SUKHDEEP BATRES UNIT: [id number] ADM DATE: 05/03/19 AGE: 23 : [birth year] SEX: M ROOM/BED: D.2233 AUTHOR: GRAYSON,DOC PHYSICIAN: REFERRING PHYSICIAN: ALISTAIR BRUMFIELD MD DATE OF SERVICE: 05/06/19 Discharge Plan Patient Name: SUKHDEEP BATRES Facility: [facility]:[place] : 1995 Planned Disposition: Anticipated Discharge Date: Discharge Date: Expected LOS: Initial Reviewer: [email or web address] Initial Review Date: 05/06/2019 Generated: 05/06/19 5:14 pm DCP- Discharge Planning Updated by [email or web address]: Karely Rendon on 05/06/19 3:[address] Patient Name: SUKHDEEP BATRES Admission Status: ER Accout number: [id number] Admission Date: 05-03-2019 : 1995 Admission Diagnosis:PNEUMONIA, UNSPECIFIED ORGANISM Attending: ARGENTINA BRUMFIELD Current LOS: 3 Anticipated DC Date: Planned Disposition: Primary Insurance: MEDICARE A & B Discharge Planning Comments: CM TALKED TO PATIENT ABOUT HH AND IV INFUSION COMPANY. STATES WANTS TO WAIT UNTIL TALKS TO DOCTOR. SANTANA NOTIFIED. DR. CUNHA SIGNED HH MED SHEET, I WILL PLACE ON THE CHART. Change Control Manager: Karely Rendon DCP- Discharge Planning Updated by [email or web address]: Kassie Helm on 05/04/19 4:[address] CASE MANAGEMENT CONSULT RECEIVED. PATIENT IS PARAPLEGIC. REPORTEDLY LIVES W/ HIS FAMILY. PCP DR CLARK. HAS A SUPRAPUBIC CATH. CM SPOKE WITH THE NURSE PRIOR TO VISITING THE PATIENT. SHE STATES HE HAS REQUIRED PAIN MEDICATION AND NAUSEA MEDICATION Q4H TODAY. HE REPORTEDLY FEELS BADLY . REPORTS HE DID FALL IN THE SHOWER A COUPLE OF DAYS PRIOR TO ADMISSION. NO FAMILY AT THE BEDSIDE. THE PATIENT HAD AN ADMISSION W/ DISCHARGE 04/20/19 FOR ABD PAIN, NAUSEA, VOMTING AND FLANK PAIN. HAD AN ADMISSION 03/06/19 FOR UTI. HE WAS DISCHARGED TO HOME W/ HIS FAMILY AND NO ADDITIONAL SERVICES. CM WILL RESCHEDULE VISIT TO ASSESS FOR POSSIBLE NEEDS. DCPIA - Discharge Planning Initial Assessment Updated by [email or web address]: Karely Rendon on 05/06/19 4:05 pm * Is the patient Alert and Oriented? Yes * PCP [facility] * Pharmacy [facility] * Preadmission Environment Home with Family * ADLs Independent * Equipment Wheelchair * Community resources currently utilized None * Can the patient safely return to the preadmission environment? Yes * Has this patient been hospitalized within the prior 30 days at any hospital? No Patient Name: SUKHDEEP BATRES Page [phone] at 1614 All edits/amendments must be made on the electronic document DICTATION DATE: 05/06/191612 DIRECTOR NICU: EVITA 05/06/191612 RPT#: [id number] [place] DATE: STATUS: ADM IN [facility] [address] [place] [address] END OF REPORT
--- NOTE | 2019-05-06 20:00 | NUR ---
LYING QUEITLY WITH NO DISTRESS NOTED. COMPLAITNS OF PAIN. HAS JUST RECEIVED PAIN MED FROM DAY SHIFT NURSE.IV TO RAC INTACT WITHOUT REDNESS OR EDEMA NOTED. CL IN REACH
--- NOTE | 2019-05-06 22:00 | NUR ---
B/P 176/111 LEFT ARM. 154/108 RIGHT ARM. KIET LOPEZ ON UNIT AND INFORMED OF B/P. ORDERS RECEIVED.CATAPRESS 0.1 MG GIVEN PER ORDER.
[2019-05-06 22:08] VITALS: BP 154/108
[2019-05-07 00:50] VITALS: BP 146/106
--- NOTE | 2019-05-07 01:42 | NUR ---
I have reviewed this patient and I concur with the Shift Assessment completed by the Licensed Practical Nurse today this shift.
[2019-05-07 05:34] VITALS: BP 113/53
[2019-05-07 05:41] LABS: BASOPHILS 0.1 % (0-2); EOSINOPHILS 2.8 % (0-7); HEMATOCRIT 39.6 % (42.0-54.0); HEMOGLOBIN 13.2 g/dL (13.5-17.5); IMMATURE GRANULOCYTES 0.4 % (0-5); LYMPHOCYTES 34.5 % (15-50); MCH 28.4 pg (26.0-34.0); MCHC 33.3 g/dL (31.0-37.0); MCV 85.3 fL (80.0-100.0); MEAN PLATELET VOLUME 9.5 fL (7.4-10.4); MONOCYTES 7.9 % (2-11); NEUTROPHILS 54.3 % (40-80); PLATELET COUNT 220 10x3/uL (130-400); RBC 4.64 10x6/uL (4.20-6.10); RDW 14.4 % (11.5-14.5); WBC 7.5 10x3/uL (4.8-10.8)
[2019-05-07 05:52] LABS: ALBUMIN 3.3 g/dL (3.4-5.0); ALKALINE PHOSPHATASE 97 U/L (46-116); ALT (SGPT) 34 U/L (10-68); BILIRUBIN - TOTAL 0.49 mg/dL (0.2-1.3); CALC OSMOLALITY 282 mosm/kg (275-300); CALCIUM 8.4 mg/dL (8.5-10.1); CARBON DIOXIDE 24.5 mmol/L (21.0-32.0); CHLORIDE - SERUM 108 mmol/L (98-107); CREATININE - SERUM 0.8 mg/dL (0.6-1.3); GLUCOSE 106 mg/dL (74-106); POTASSIUM - SERUM 4.3 mmol/L (3.5-5.1); PROTEIN - SERUM 6.7 g/dL (6.4-8.2); SODIUM 142 mmol/L (136-145); eGFR NON AFRICAN AMERICAN > 90 mL/min (90-120)
[2019-05-07 05:53] LABS: UREA NITROGEN 12 mg/dL (7-18)
[2019-05-07 09:00] VITALS: BP 132/88
[2019-05-07 12:05] VITALS: BP 134/76
--- NOTE | 2019-05-07 12:10 | MORECARE ---
CASE MANAGEMENT DISCHARGE SUMMARY PATIENT: SUKHDEEP BATRES UNIT: [id number] ADM DATE: 05/03/19 AGE: 23 : [birth year] SEX: M ROOM/BED: D.2233 AUTHOR: CAT GALICIA PHYSICIAN: REFERRING PHYSICIAN: ALISTAIR BRUMFIELD MD DATE OF SERVICE: 05/07/19 Discharge Plan Patient Name: SUKHDEEP BATRES Facility: [facility]:[place] : 1995 Planned Disposition: Anticipated Discharge Date: Discharge Date: Expected LOS: Initial Reviewer: [email or web address] Initial Review Date: 05/06/2019 Generated: 05/07/19 1:09 pm Comments DCP- Discharge Planning Updated by [email or web address]: Ariadne Watts on 05/07/19 11:[address] I spoke with patient regarding a home health and infusion service, he refuses at this time. He states that he wants to talk with Dr. Robertson first. I spoke with Alejandro Hobbs about this. CM will continue to follow and assist with discharge planning/needs. DCP- Discharge Planning Updated by [email or web address]: Karely Rendon on 05/06/19 3:[address] Patient Name: SUKHDEEP BATRES Admission Status: ER Accout number: [id number] Admission Date: 05-03-2019 : 1995 Admission Diagnosis:PNEUMONIA, UNSPECIFIED ORGANISM Attending: ARGENTINA BRUMFIELD Current LOS: 3 Anticipated DC Date: Planned Disposition: Primary Insurance: MEDICARE A & B Discharge Planning Comments: CM TALKED TO PATIENT ABOUT HH AND IV INFUSION COMPANY. STATES WANTS TO WAIT UNTIL TALKS TO DOCTOR. ALEJANDRO NOTIFIED. DR. ROBERTSON SIGNED HH MED SHEET, I WILL PLACE ON THE CHART. Public Service Officer: Karely Rendon DCP- Discharge Planning Updated by [email or web address]: Kassie Helm on 05/04/19 4:[address] CASE MANAGEMENT CONSULT RECEIVED. PATIENT IS PARAPLEGIC. REPORTEDLY LIVES W/ HIS FAMILY. PCP DR CLARK. HAS A SUPRAPUBIC CATH. CM SPOKE WITH THE NURSE PRIOR TO VISITING THE PATIENT. SHE STATES HE HAS REQUIRED PAIN MEDICATION AND NAUSEA MEDICATION Q4H TODAY. HE REPORTEDLY FEELS BADLY . REPORTS HE DID FALL IN THE SHOWER A COUPLE OF DAYS PRIOR TO ADMISSION. NO FAMILY AT THE BEDSIDE. THE PATIENT HAD AN ADMISSION W/ DISCHARGE 04/20/19 FOR ABD PAIN, NAUSEA, VOMTING AND FLANK PAIN. HAD AN ADMISSION 03/06/19 FOR UTI. HE WAS DISCHARGED TO HOME W/ HIS FAMILY AND NO ADDITIONAL SERVICES. CM WILL RESCHEDULE VISIT TO ASSESS FOR POSSIBLE NEEDS. DCPIA - Discharge Planning Initial Assessment Updated by [email or web address]: Karely Rendon on 05/06/19 4:05 pm * Is the patient Alert and Oriented? Yes * PCP [facility] * Pharmacy [facility] * Preadmission Environment Home with Family * ADLs Independent * Equipment Wheelchair * Community resources currently utilized None * Can the patient safely return to the preadmission environment? Yes * Has this patient been hospitalized within the prior 30 days at any hospital? No Last DP export: 05/06/19 3:14 p Patient Name: SUKHDEEP BATRES Page 40151 at 1210 All edits/amendments must be made on the electronic document DICTATION DATE: 05/07/191208 SENIOR MECHANICAL DESIGNER: EVITA 05/07/19 120 RPT#: [id number] DC DATE: STATUS: ADM IN [facility] [address] [place] [address] END OF REPORT
[2019-05-07 16:21] VITALS: BP 147/91
--- NOTE | 2019-05-07 16:39 | NUR ---
PT RESTING IN BED. NO SIGNS OF DISTRESS. IV TO LEFT HAND PATENT NO REDNESS OR TENDERNESS. ON TELEMETRY 86 SR. CONTRACTURES TO BOTH LEGS. COMPLAINS OF PAIN. MEDICATIONS GIVEN. DENIES ANY FURTHER NEED AT THIS TIME. CALL LIGHT IN REACH. BED LOW POSITION. NO FAMILY AT BEDSIDE AT THIS TIME.
--- NOTE | 2019-05-07 18:22 | NUR ---
I have reviewed this patient and I concur with the Shift Assessment completed by the Licensed Practical Nurse today this shift.
--- NOTE | 2019-05-07 20:30 | NUR ---
AWAKE ALERT, NO COMPALITNS VOCIED AT PRESENT. IV TO LEFT HAND INTACT WITHOUT REDNESS OR EDEMA NOTED. SERA PUBIC CATH INTACT AND DRAINING SR UP X 2. CL IN REACH
[2019-05-07 20:52] VITALS: BP 141/104
[2019-05-08 01:11] VITALS: BP 163/111
--- NOTE | 2019-05-08 04:45 | NUR ---
I have reviewed this patient and I concur with the Shift Assessment completed by the Licensed Practical Nurse today this shift.
[2019-05-08 06:01] VITALS: BP 147/69
[2019-05-08 06:25] LABS: BASOPHILS 0.1 % (0-2); EOSINOPHILS 2.9 % (0-7); HEMATOCRIT 43.4 % (42.0-54.0); HEMOGLOBIN 14.7 g/dL (13.5-17.5); IMMATURE GRANULOCYTES 0.7 % (0-5); LYMPHOCYTES 39.1 % (15-50); MCH 29.1 pg (26.0-34.0); MCHC 33.9 g/dL (31.0-37.0); MCV 85.8 fL (80.0-100.0); MEAN PLATELET VOLUME 9.7 fL (7.4-10.4); MONOCYTES 6.8 % (2-11); NEUTROPHILS 50.4 % (40-80); PLATELET COUNT 240 10x3/uL (130-400); RBC 5.06 10x6/uL (4.20-6.10); RDW 14.3 % (11.5-14.5); WBC 7.2 10x3/uL (4.8-10.8)
[2019-05-08 06:41] LABS: ALBUMIN 3.8 g/dL (3.4-5.0); ALKALINE PHOSPHATASE 107 U/L (46-116); ALT (SGPT) 35 U/L (10-68); BILIRUBIN - TOTAL 0.52 mg/dL (0.2-1.3); CALC OSMOLALITY 278 mosm/kg (275-300); CARBON DIOXIDE 26.1 mmol/L (21.0-32.0); CHLORIDE - SERUM 103 mmol/L (98-107); CREATININE - SERUM 0.7 mg/dL (0.6-1.3); GLUCOSE 90 mg/dL (74-106); POTASSIUM - SERUM 4.5 mmol/L (3.5-5.1); PROTEIN - SERUM 7.5 g/dL (6.4-8.2); SODIUM 139 mmol/L (136-145); UREA NITROGEN 14 mg/dL (7-18); eGFR NON AFRICAN AMERICAN > 90 mL/min (90-120)
[2019-05-08 08:43] VITALS: BP 121/64
--- NOTE | 2019-05-08 11:26 | NUR ---
PT RESTING IN BED. NO SIGNS OF DISTRESS. IV TO LEFT HAND PATENT NO REDNESS OR TENDERNESS. ON TELEMETRY 93 SR. COMPLAINS OF PAIN AND NAUSEA MEDICATIONS GIVEN. DENIE ANY FURTHER NEED AT THIS TIME. CALL LIGHT IN REACH. BED LOW POSITION. NO FAMILY AT BEDSIDE AT THIS TIME.
[2019-05-08 13:12] VITALS: BP 163/117
--- NOTE | 2019-05-08 13:31 | NUR ---
I have reviewed this patient and I concur with the Shift Assessment completed by the Licensed Practical Nurse today this shift.
--- NOTE | 2019-05-08 14:38 | MORECARE ---
CASE MANAGEMENT DISCHARGE SUMMARY PATIENT: SUKHDEEP BATRES UNIT: [id number] ADM DATE: 05/03/19 AGE: 23 : [birth year] SEX: M ROOM/BED: D.2233 AUTHOR: CAT GALICIA PHYSICIAN: REFERRING PHYSICIAN: ALISTAIR BRUMFIELD MD DATE OF SERVICE: 05/08/19 Discharge Plan Patient Name: SUKHDEEP BATRES Facility: [facility]:[place] : 1995 Planned Disposition: Anticipated Discharge Date: Discharge Date: Expected LOS: Initial Reviewer: [email or web address] Initial Review Date: 05/06/2019 Generated: 05/08/19 3:38 pm Comments DCP- Discharge Planning Updated by [email or web address]: Ariadnejonathon Watts on 05/08/19 1:[address] Patient Name: SUKHDEEP BATRES Encounter No: [id number] : 1995 Primary Insurance: MEDICARE A & B Anticipated DC Date: Planned Disposition: External Planned Provider: : DCP follow-up note: Patient and family in agreement with discharge plan. No changes to plan. Declines home health. States his dad is picking him up at 3:30, flower picker informed. Case management will follow and assist as needed. Ariadne Mac DCP- Discharge Planning Updated by [email or web address]: Ariadne Mac on 05/07/19 11:[address] I spoke with patient regarding a home health and infusion service, he refuses at this time. He states that he wants to talk with Dr. Robertson first. I spoke with Alejandro Hobbs about this. CM will continue to follow and assist with discharge planning/needs. DCP- Discharge Planning Updated by [email or web address]: Karely Rendon on 05/06/19 3:[address] Patient Name: SUKHDEEP BATRES Admission Status: ER Accout number: [id number] Admission Date: 05-03-2019 : 1995 Admission Diagnosis:PNEUMONIA, UNSPECIFIED ORGANISM Attending: ARGENTINA BRUMFIELD Current LOS: 3 Anticipated DC Date: Planned Disposition: Primary Insurance: MEDICARE A & B Discharge Planning Comments: CM TALKED TO PATIENT ABOUT HH AND IV INFUSION COMPANY. STATES WANTS TO WAIT UNTIL TALKS TO DOCTOR. ALEJANDRO NOTIFIED. DR. ROBERTSON SIGNED HH MED SHEET, I WILL PLACE ON THE CHART. Dolphin Researcher: Karely Rendon DCP- Discharge Planning Updated by [email or web address]: Kassie Helm on 05/04/19 4:[address] CASE MANAGEMENT CONSULT RECEIVED. PATIENT IS PARAPLEGIC. REPORTEDLY LIVES W/ HIS FAMILY. PCP DR CLARK. HAS A SUPRAPUBIC CATH. CM SPOKE WITH THE NURSE PRIOR TO VISITING THE PATIENT. SHE STATES HE HAS REQUIRED PAIN MEDICATION AND NAUSEA MEDICATION Q4H TODAY. HE REPORTEDLY FEELS BADLY . REPORTS HE DID FALL IN THE SHOWER A COUPLE OF DAYS PRIOR TO ADMISSION. NO FAMILY AT THE BEDSIDE. THE PATIENT HAD AN ADMISSION W/ DISCHARGE 04/20/19 FOR ABD PAIN, NAUSEA, VOMTING AND FLANK PAIN. HAD AN ADMISSION 03/06/19 FOR UTI. HE WAS DISCHARGED TO HOME W/ HIS FAMILY AND NO ADDITIONAL SERVICES. CM WILL RESCHEDULE VISIT TO ASSESS FOR POSSIBLE NEEDS. DCPIA - Discharge Planning Initial Assessment Updated by [email or web address]: Karely Rendon on 05/06/19 4:05 pm * Is the patient Alert and Oriented? Yes * PCP AMBER * Pharmacy [facility] * Preadmission Environment Home with Family * ADLs Independent * Equipment Wheelchair * Community resources currently utilized None * Can the patient safely return to the preadmission environment? Yes * Has this patient been hospitalized within the prior 30 days at any hospital? No Coverage Notice Reviewer: [email or web address] Yohannes Watts Notice Issued Date-Time: 05/08/2019 14:33 Notice Type: IM Discharge Notice Notice Delivered To: Patient Relationship to Patient: Self Metal Bench Patternmaker Name: Delivery Method: HAND - Hand Delivered Brisa Days: Prior Verbal Notification: Recipient Understood Notice: Yes Recipient Signature: Yes Med Rec Note Co-signed by Attending: Coverage Notice Comment: IMM explained, signed, given, copy placed in MR Last DP export: 05/07/19 11:10 a Patient Name: SUKHDEEP BATRES Page [id number] at 1438 All edits/amendments must be made on the electronic document DICTATION DATE: 05/08/198 SCREEN MACHINE OPERATOR: EVITA 05/08/19 1438 RPT#: [id number] DC DATE: STATUS: ADM IN [facility] [address] [place] [address] END OF REPORT
--- NOTE | 2019-05-08 16:20 | NUR ---
OT NOTE: PT COMPLETED FACE WASH WITH SET UP AT [facility]. PT COMPLETED BUE AROM EX. PT COMPLETED BED MOB WITH SPV. PT STATED HIS NECK HURTS AND THAT NURSING IS AWARE. THANK YOU, CHELSEA STEWARD
--- NOTE | 2019-05-08 17:24 | NUR ---
DISCHARGE INSTRUCTIONS GIVEN. SEEMS TO UNDERSTAND INSTRUCTIONS. IV OUT TIP INTACT. DENIES ANY FURTHER NEED AT THIS TIME. LEFT WITH HOSPITAL STAFF TO GO HOME IN PERSONAL RIDE WITH FAMILY. NO SIGNS OF DISTRESS.
--- NOTE | 2019-05-09 15:18 | MORECARE ---
CASE MANAGEMENT DISCHARGE SUMMARY PATIENT: SUKHDEEP BATRES UNIT: [id number] ADM DATE: 05/03/19 AGE: 23 : [birth year] SEX: M ROOM/BED: D.2233 AUTHOR: CAT GALICIA PHYSICIAN: REFERRING PHYSICIAN: ALISTAIR BRUMFIELD MD DATE OF SERVICE: 05/09/19 Discharge Plan Patient Name: SUKHDEEP BATRES Facility: [facility]:[place] : 1995 Planned Disposition: Anticipated Discharge Date: Discharge Date: 05/08/2019 Expected LOS: Initial Reviewer: [id number] Initial Review Date: 05/06/2019 Generated: 05/09/19 4:18 pm Comments DCP- Discharge Planning Updated by [id number]: Ariadnejonathon Watts on 05/08/19 1:[address] Patient Name: SUKHDEEP BATRES Encounter No: [id number] : 1995 Primary Insurance: MEDICARE A & B Anticipated DC Date: Planned Disposition: External Planned Provider: : DCP follow-up note: Patient and family in agreement with discharge plan. No changes to plan. Declines home health. States his dad is picking him up at 3:30, property management coordinator informed. Case management will follow and assist as needed. Ariadne Watts DCP- Discharge Planning Updated by [email or web address]: Ariadne Watts on 05/07/19 11:[address] I spoke with patient regarding a home health and infusion service, he refuses at this time. He states that he wants to talk with Dr. Robertson first. I spoke with Alejandro Hobbs about this. CM will continue to follow and assist with discharge planning/needs. DCP- Discharge Planning Updated by [email or web address]: Karely Rendon on 05/06/19 3:[address] Patient Name: SUKHDEEP BATRES Admission Status: ER Accout number: [id number] Admission Date: 05-03-2019 : 1995 Admission Diagnosis:PNEUMONIA, UNSPECIFIED ORGANISM Attending: ARGENTINA BRUMFIELD Current LOS: 3 Anticipated DC Date: Planned Disposition: Primary Insurance: MEDICARE A & B Discharge Planning Comments: CM TALKED TO PATIENT ABOUT HH AND IV INFUSION COMPANY. STATES WANTS TO WAIT UNTIL TALKS TO DOCTOR. ALEJANDRO NOTIFIED. DR. ROBERTSON SIGNED HH MED SHEET, I WILL PLACE ON THE CHART. Results Technician: Karely Rendon DCP- Discharge Planning Updated by [email or web address]: Kassie Helm on 05/04/19 4:[address] CASE MANAGEMENT CONSULT RECEIVED. PATIENT IS PARAPLEGIC. REPORTEDLY LIVES W/ HIS FAMILY. PCP DR CLARK. HAS A SUPRAPUBIC CATH. CM SPOKE WITH THE NURSE PRIOR TO VISITING THE PATIENT. SHE STATES HE HAS REQUIRED PAIN MEDICATION AND NAUSEA MEDICATION Q4H TODAY. HE REPORTEDLY FEELS BADLY . REPORTS HE DID FALL IN THE SHOWER A COUPLE OF DAYS PRIOR TO ADMISSION. NO FAMILY AT THE BEDSIDE. THE PATIENT HAD AN ADMISSION W/ DISCHARGE 04/20/19 FOR ABD PAIN, NAUSEA, VOMTING AND FLANK PAIN. HAD AN ADMISSION 03/06/19 FOR UTI. HE WAS DISCHARGED TO HOME W/ HIS FAMILY AND NO ADDITIONAL SERVICES. CM WILL RESCHEDULE VISIT TO ASSESS FOR POSSIBLE NEEDS. DCPIA - Discharge Planning Initial Assessment Updated by [email or web address]: Karely Rendon on 05/06/19 4:05 pm * Is the patient Alert and Oriented? Yes * PCP AMBER * Pharmacy [facility] * Preadmission Environment Home with Family * ADLs Independent * Equipment Wheelchair * Community resources currently utilized None * Can the patient safely return to the preadmission environment? Yes * Has this patient been hospitalized within the prior 30 days at any hospital? No Coverage Notice Reviewer: [email or web address] Yohannes Watts Notice Issued Date-Time: 05/08/2019 14:33 Notice Type: IM Discharge Notice Notice Delivered To: Patient Relationship to Patient: Self Noxious Weeds And Pest Inspector Name: Delivery Method: HAND - Hand Delivered Brisa Days: Prior Verbal Notification: Recipient Understood Notice: Yes Recipient Signature: Yes Med Rec Note Co-signed by Attending: Coverage Notice Comment: IMM explained, signed, given, copy placed in MR Last DP export: 05/08/19 1:38 p Patient Name: SUKHDEEP BATRES Page [id number] at 1518 All edits/amendments must be made on the electronic document DICTATION DATE: 05/09/197 OFFICE WORKER: EVITA 05/09/191517 RPT#: [id number] DC DATE:05/08/19 STATUS: DIS IN [facility] [address] [place] [address] END OF REPORT
== END 2019-05-08 17:25 | disposition home or self-care (01) | DRG 698 ==
LOC: D.ER 00:13 → D.MS 01:51
PROVIDERS: Family Medicine; ADMIT Emergency Medicine; ATTEND Emergency Medicine
DX: T83.511A Infection and inflammatory reaction due to indwelling urethral catheter, initial encounter (principal); J96.01 Acute respiratory failure with hypoxia; R53.2 Functional quadriplegia; B96.5 Pseudomonas (aeruginosa) (mallei) (pseudomallei) as the cause of diseases classified elsewhere; Z96.0 Presence of urogenital implants; Q05.9 Spina bifida, unspecified; Y95 Nosocomial condition; E86.0 Dehydration; H10.33 Unspecified acute conjunctivitis, bilateral; R07.89 Other chest pain; K75.9 Inflammatory liver disease, unspecified

== ENCOUNTER 2019-05-25 19:35 | Emergency (ER) | payer MEDICARE ==
[~2019-05-25] VITALS: Ht 172.7 cm; Wt 65.9 kg
[~2019-05-25 19:35] MED LIST changes: +SULFAMETHOXAZOL1 TA2 PO
[2019-05-25 20:01] VITALS: Ht 172.7 cm; Wt 65.9 kg
[2019-05-25 21:58] VITALS: BP 142/96
== END 2019-05-25 22:00 | disposition home or self-care (01) ==
LOC: D.ER 19:35
DX: T83.038A Leakage of other urinary catheter, initial encounter (principal); Y84.9 Medical procedure, unspecified as the cause of abnormal reaction of the patient, or of later complication, without mention of misadventure at the time of the procedure; F17.210 Nicotine dependence, cigarettes, uncomplicated; Q05.9 Spina bifida, unspecified

== ENCOUNTER 2019-05-30 00:30 | Emergency (ER) | payer MEDICARE ==
[~2019-05-30] VITALS: Ht 172.7 cm; Wt 68.2 kg
[2019-05-30 00:33] VITALS: Ht 172.7 cm; Wt 68.2 kg
[2019-05-30] MEDS ORDERED: COZAAR50 MG PO (00:34)
[2019-05-30 01:02] LABS: BASOPHILS 0.1 % (0-2); EOSINOPHILS 1.4 % (0-7); HEMATOCRIT 49.9 % (42.0-54.0); HEMOGLOBIN 16.7 g/dL (13.5-17.5); IMMATURE GRANULOCYTES 0.3 % (0-5); LYMPHOCYTES 32.3 % (15-50); MCHC 33.5 g/dL (31.0-37.0); MCV 89.7 fL (80.0-100.0); MEAN PLATELET VOLUME 9.4 fL (7.4-10.4); MONOCYTES 12.2 % (2-11); NEUTROPHILS 53.7 % (40-80); PLATELET COUNT 260 10x3/uL (130-400); RBC 5.56 10x6/uL (4.20-6.10); RDW 13.9 % (11.5-14.5); WBC 9.6 10x3/uL (4.8-10.8)
[2019-05-30 01:10] LABS: APTT 31.7 SECONDS (22.8-39.4); INR 1.03 (0.85-1.17)
[2019-05-30 01:16] LABS: ALKALINE PHOSPHATASE 113 U/L (46-116); ALT (SGPT) 44 U/L (10-68); CALC OSMOLALITY 279 mosm/kg (275-300); CALCIUM 9.3 mg/dL (8.5-10.1); CARBON DIOXIDE 24.9 mmol/L (21.0-32.0); CHLORIDE - SERUM 104 mmol/L (98-107); CREATININE - SERUM 0.6 mg/dL (0.6-1.3); GLUCOSE 99 mg/dL (74-106); POTASSIUM - SERUM 3.9 mmol/L (3.5-5.1); PROTEIN - SERUM 8.4 g/dL (6.4-8.2); SODIUM 139 mmol/L (136-145); UREA NITROGEN 19 mg/dL (7-18); eGFR NON AFRICAN AMERICAN > 90 mL/min (90-120)
[2019-05-30 01:32] LABS: CKMB 0.4 U/L (0.0-3.6); CREATINE KINASE 108 UL (21-232); MAGNESIUM - SERUM 1.9 mg/dL (1.8-2.4); TROPONIN-I < 0.017 ng/mL (0.000-0.060)
[2019-05-30] MEDS ORDERED: ZOFRAN ODT4 MG/UDTAB PO (01:34)
[2019-05-30 02:19] VITALS: BP 153/107
== END 2019-05-30 02:02 | disposition home or self-care (01) ==
LOC: D.ER 00:30
PROVIDERS: Emergency Medicine
DX: R06.00 Dyspnea, unspecified (principal); R10.9 Unspecified abdominal pain; R55 Syncope and collapse; R11.2 Nausea with vomiting, unspecified

== ENCOUNTER 2019-06-16 21:40 | Observation (INO) | payer MEDICARE ==
[~2019-06-16] VITALS: Ht 172.7 cm; Wt 69.5 kg
[~2019-06-16 21:40] MED LIST changes: +COZAAR50 MG PO
[2019-06-16 23:05] LABS: BASOPHILS 0.3 % (0-2); EOSINOPHILS 2.8 % (0-7); HEMATOCRIT 47.6 % (42.0-54.0); IMMATURE GRANULOCYTES 0.1 % (0-5); MCHC 33.6 g/dL (31.0-37.0); MCV 89.3 fL (80.0-100.0); MEAN PLATELET VOLUME 9.5 fL (7.4-10.4); MONOCYTES 8.6 % (2-11); NEUTROPHILS 53.2 % (40-80); PLATELET COUNT 255 10x3/uL (130-400); RBC 5.33 10x6/uL (4.20-6.10); RDW 13.4 % (11.5-14.5); WBC 6.8 10x3/uL (4.8-10.8)
[2019-06-16 23:11] LABS: APTT 28.9 SECONDS (22.8-39.4); PROTIME 12.7 SECONDS (11.6-15.0)
[2019-06-16 23:23] LABS: CALC OSMOLALITY 285 mosm/kg (275-300); CALCIUM 8.9 mg/dL (8.5-10.1); CARBON DIOXIDE 24.2 mmol/L (21.0-32.0); CHLORIDE - SERUM 107 mmol/L (98-107); CREATININE - SERUM 0.8 mg/dL (0.6-1.3); GLUCOSE 105 mg/dL (74-106); POTASSIUM - SERUM 3.6 mmol/L (3.5-5.1); SODIUM 143 mmol/L (136-145); UREA NITROGEN 15 mg/dL (7-18); eGFR NON AFRICAN AMERICAN > 90 mL/min (90-120)
[2019-06-16 23:27] LABS: ALKALINE PHOSPHATASE 117 U/L (46-116); ALT (SGPT) 57 U/L (10-68); CKMB 0.2 U/L (0.0-3.6); CREATINE KINASE 183 UL (21-232); PROTEIN - SERUM 8.3 g/dL (6.4-8.2)
[2019-06-16 23:28] LABS: TROPONIN-I < 0.017 ng/mL (0.000-0.060)
[2019-06-17 00:38] LABS: APPEARANCE CLOUDY (CLEAR); BILIRUBIN NEGATIVE (NEGATIVE); COLOR YELLOW (YELLOW); GLUCOSE NEGATIVE (NEGATIVE); KETONE NEGATIVE (NEGATIVE); NITRITE POSITIVE (NEGATIVE); PROTEIN 2+ mg/dL (NEGATIVE)
[2019-06-17 00:43] LABS: BACTERIA MANY /hpf (NEGATIVE); EPITHELIAL CELLS 0-5 /hpf (0-5); RED CELLS - URINE 0-5 /hpf (0-5)
[2019-06-17 02:59] VITALS: BP 160/88; BMI 23.6
--- NOTE | 2019-06-17 07:00 | NUR ---
RECEIVED REPORT. ASSUMED CARE OF PATIENT. BEDSIDE SHIFT REPORT COMPLETE. CALL LIGHT WITHIN REACH. RESTING IN BED WITH EYES CLOSED. EASILY AROUSED. COMPLAINS OF FLANK PAIN. RESP EVEN AND UNLABORED. NO DISTRESS.
[2019-06-17 07:13] LABS: BASOPHILS 0.3 % (0-2); EOSINOPHILS 3.3 % (0-7); HEMATOCRIT 43.6 % (42.0-54.0); HEMOGLOBIN 14.2 g/dL (13.5-17.5); IMMATURE GRANULOCYTES 0.4 % (0-5); LYMPHOCYTES 42.4 % (15-50); MCH 29.3 pg (26.0-34.0); MCHC 32.6 g/dL (31.0-37.0); MCV 90.1 fL (80.0-100.0); MEAN PLATELET VOLUME 9.5 fL (7.4-10.4); MONOCYTES 9.3 % (2-11); NEUTROPHILS 44.3 % (40-80); PLATELET COUNT 220 10x3/uL (130-400); RBC 4.84 10x6/uL (4.20-6.10); RDW 13.3 % (11.5-14.5); WBC 7.3 10x3/uL (4.8-10.8)
[2019-06-17 07:22] LABS: CALC OSMOLALITY 282 mosm/kg (275-300); CALCIUM 8.3 mg/dL (8.5-10.1); CARBON DIOXIDE 25.6 mmol/L (21.0-32.0); CHLORIDE - SERUM 107 mmol/L (98-107); CREATININE - SERUM 0.7 mg/dL (0.6-1.3); GLUCOSE 85 mg/dL (74-106); PHOSPHOROUS 3.9 mg/dL (2.5-4.9); POTASSIUM - SERUM 3.9 mmol/L (3.5-5.1); SODIUM 142 mmol/L (136-145); UREA NITROGEN 14 mg/dL (7-18); eGFR NON AFRICAN AMERICAN > 90 mL/min (90-120)
--- NOTE | 2019-06-17 07:36 | NUR ---
MEDICATED FOR PAIN AND NAUSEA AT THIS TIME. NO DISTRESS. PATIENT COMPLAINING OF PREVIOUS PHYSICIANS THAT HAVE CANCELLED HIS SURGERY FOR THE UROSTOMY TUBES. ALSO STATES HE USUALLY HAS A 16FR SUPRAPUBIC IN BUT CURRENTLY HAS A 14FR IN AND URINE LEAKS AROUND THE STOMA. NO ACUTE DISTRESS. CALL LIGHT WITHIN REACH.
[2019-06-17 07:44] VITALS: BP 149/95
--- NOTE | 2019-06-17 09:11 | NUR ---
REFUSED LOVENOX INJECTION.
--- NOTE | 2019-06-17 11:20 | NUR ---
MEDICATED FOR PAIN AND NAUSEA AT THIS TIME. NO DISTRESS. VANC CURRENTLY INFUSING. BP ELEVATE, NO NEW ORDERS OBTAINED.
[2019-06-17 11:41] VITALS: BP 155/104
[2019-06-17 14:56] VITALS: BP 153/94
--- NOTE | 2019-06-17 15:31 | NUR ---
MEDICATED FOR PAIN AT THIS TIME. NO DISTRESS.
[2019-06-17 15:58] VITALS: Ht 172.7 cm; Wt 69.5 kg
--- NOTE | 2019-06-17 17:00 | MORECARE ---
CASE MANAGEMENT DISCHARGE SUMMARY PATIENT: SUKHDEEP BATRES UNIT: [id number] ADM DATE: 06/17/19 AGE: 23 : [birth year] SEX: M ROOM/BED: D.2113 AUTHOR: CAT GALICIA PHYSICIAN: REFERRING PHYSICIAN: GRAY CUNHA MD DATE OF SERVICE: 06/17/19 Discharge Plan Patient Name: SUKHDEEP BATRES Facility: [facility]:[place] : 1995 Planned Disposition: Home Anticipated Discharge Date: 06/17/19 Discharge Date: Expected LOS: 1 Initial Reviewer: [email or web address] Initial Review Date: 06/17/2019 Generated: 06/17/19 6:00 pm DCPIA - Discharge Planning Initial Assessment Updated by [id number]: Jayce Albarran on 06/17/19 4:56 pm * Is the patient Alert and Oriented? Yes * How many steps to enter\\exit or inside your home? RAMP * PCP DR. CLARK UROLOGIST- "[facility]" AT [facility] * Pharmacy [facility] [address] * Preadmission Environment Home with Family * ADLs Independent * Equipment Hospital Bed Walker Wheelchair * Other Equipment NO MEDICAL EQUIPMENT PROVIDER PREFERENCE * List name and contact numbers for known caregivers / representatives who currently or will assist patient after discharge: BIJU BATRES, FATHER, * Verbal permission to speak to the caregivers and representatives has been obtained from the patient. Yes * Community resources currently utilized None * Please name any agencies selected above. NONE * Additional services required to return to the preadmission environment? No * Can the patient safely return to the preadmission environment? Yes * Has this patient been hospitalized within the prior 30 days at any hospital? No Patient Name: SUKHDEEP BATRES Page [id number] at 1700 All edits/amendments must be made on the electronic document DICTATION DATE: 06/17/191699 SALES FLOOR MANAGER: EVITA 06/17/191699 RPT#: [id number] DC DATE: STATUS: ADM IN [facility] [address] [place] [address] END OF REPORT
--- NOTE | 2019-06-17 17:11 | MORECARE ---
CASE MANAGEMENT DISCHARGE SUMMARY PATIENT: SUKHDEEP BATRES UNIT: [id number] ADM DATE: 06/17/19 AGE: 23 : [birth year] SEX: M ROOM/BED: D.2813 AUTHOR: GRAYSON,DOC PHYSICIAN: REFERRING PHYSICIAN: GRAY CUNHA MD DATE OF SERVICE: 06/17/19 Discharge Plan Patient Name: SUKHDEEP BATRES Facility: [facility]:[place] : 1995 Planned Disposition: Home Anticipated Discharge Date: 06/17/19 Discharge Date: Expected LOS: 1 Initial Reviewer: [email or web address] Initial Review Date: 06/17/2019 Generated: 06/17/19 6:10 pm Comments DCP- Discharge Planning Updated by [id number]: Jayce Albarran on 06/17/19 4:[address] Patient Name: SUKHDEEP BATRES Admission Status: ER Accout number: [id number] Admission Date: 06-17-2019 : 1995 Admission Diagnosis: Attending: GRAY CUNHA Current LOS: 1 Anticipated DC Date: 06-17-2019 Planned Disposition: Home Primary Insurance: MEDICARE A & B Discharge Planning Comments: ZIA RECEIVED CALL FROM BIJU BATRES, , WHO REPORTS TO BE PT'S FATHER; BIJU STATES THAT PT CAME IN ONE MONTH AGO TO THE HOSPITAL AND HAD A CATHETER PUT IN AND THE CATHETER IS LATEX, THE PT HAS LATEX ALLERGY AND IT NEEDS TO BE CHANGED. BIJU ASKED TO SPEAK TO "SOMEONE" ABOUT THIS. ZIA INFORMED BIJU THAT WILL ASK PT IF COMMUNICATION WITH HIM IS OK AND THEN WILL PROVIDE HIS CONTACT PHONE NUMBER TO NURSE PRACTITIONER. ZIA SPOKE TO PT IN ROOM WHO PROVIDED PERMISSION TO SPEAK TO BIJU BATRES, HIS FATHER, REGARDING HIS CARE AND TREATMENT. PROVIDED NUMBER OF BIJU BATRES TO JOHN FREEDMAN. PT REPORTS LIVING AT HOME WITH HIS PARENTS. PT HAS WHEELCHAIR, SHOWER CHAIR AND A HOSPITAL BED AT HOME WITH NO MEDICAL EQUIPMENT PROVIDER PREFERENCE. PT REPORTS HIS SURGERY IN [place] WAS CANCELLED DUE TO INFECTION AND THEY DID NOT PRESCRIBE ANY ANTIBIOTICS. PT HAS NOT FOLLOWED UP WITH HIS PRIMARY DOCTOR AND HAS BEEN USING EMERGENCY ROOM'S FOR ABDI CHANGES. PT STATES HIS UROLOGIST IN [place] IS ALWAYS "BOOKED" AND NOT ABLE TO SEE HIM. PT STATES IF HE IS DISCHARGED TODAY WITHOUT HAVING HIS CATHETER CHANGED, HE PLANS TO GO TO [place] TO HAVE IT DONE HE IS NOT GOING TO [facility] AND THE HOSPITALS IN [place] WILL NOT CHANGE IT. PT PLANS TO RETURN HOME WITH PARENTS AT DISCHARGE, PARENTS TO [employer] APPLICATION DEVELOPER FOR TRANSPORT HOME AT DISCHARGE. NURSING APPLE CHECKER SPOKE TO PT REGARDING PLAN OF CARE AND TREATMENT HISTORY. PT PLANS TO DISCHARGE HOME WITH PARENTS, HAS NO ANTICIPATED DISCHARGE NEEDS. FAMILY TO TRANSPORT HOME. CM TO FOLLOW AND ASSIST IF NEEDED. Hand Etcher Helper: Jayce Albarran DCPIA - Discharge Planning Initial Assessment Updated by [email or web address]: Jayce Albarran on 06/17/19 4:56 pm * Is the patient Alert and Oriented? Yes * How many steps to enter\\exit or inside your home? RAMP * PCP DR. CLARK UROLOGIST- DR. Mcdonough" [facility] * Pharmacy [facility] [address] * Preadmission Environment Home with Family * ADLs Independent * Equipment Hospital Bed Walker Wheelchair * Other Equipment NO MEDICAL EQUIPMENT PROVIDER PREFERENCE * List name and contact numbers for known caregivers / representatives who currently or will assist patient after discharge: BIJU BATRES, FATHER, * Verbal permission to speak to the caregivers and representatives has been obtained from the patient. Yes * Community resources currently utilized None * Please name any agencies selected above. NONE * Additional services required to return to the preadmission environment? No * Can the patient safely return to the preadmission environment? Yes * Has this patient been hospitalized within the prior 30 days at any hospital? No Last DP export: 06/17/19 4:00 p Patient Name: SUKHDEEP BATRES Page 48769 at 1711 All edits/amendments must be made on the electronic document DICTATION DATE: 06/17/191709 TRACK INSPECTOR: EVITA 06/17/191709 RPT#: [id number] DC DATE: STATUS: ADM IN [facility] [address] [place] [address] END OF REPORT
--- NOTE | 2019-06-17 19:00 | NUR ---
REPORT RECEIVED, WILL CONTINUE POC. PATIENT IS A/OX4, RESTING WITH EYES CLOSED AT THIS TIME. NO S/S OF DISTRESS OBSERVED, RR EVEN AND UNLABORED ON ROOM AIR. PATIENT DENIES NEEDS AT THIS TIME. F/C DRAINING BY GRAVITY TO LT SIDE OF BED, CLOUDY YELLOW URINE NOTED. CL IN REACH, BED LOCKED AND LOWERED. WILL CTM.
[2019-06-17 20:00] VITALS: BP 109/60
--- NOTE | 2019-06-17 22:10 | NUR ---
PATIENT C/O FLANK PAIN, PRN MORPHINE ADMINISTERED PER ORDERS.
[2019-06-18] VITALS: BP 156/94
--- NOTE | 2019-06-18 01:46 | NUR ---
I have reviewed this patient and I concur with the Shift Assessment completed by the Licensed Practical Nurse today this shift.
--- NOTE | 2019-06-18 02:02 | NUR ---
PATIENT C/O IV PAIN. RESITED IV TO LT FOREARM 22G X1 ATTEMPT. PATIENT TOLERATED WELL. PATIENT C/O PAIN AND NAUSEA, PRN MEDS ADMINISTERED.
[2019-06-18 04:00] VITALS: BP 146/103
--- NOTE | 2019-06-18 05:00 | NUR ---
PT IV INFILTRATED AGAIN. RESITED IV TO LT UPPER ARM WITH 20G X2 ATTEMPTS. PATIENT TOLERATED WELL.
[2019-06-18 05:41] LABS: BASOPHILS 0.1 % (0-2); EOSINOPHILS 2.8 % (0-7); HEMATOCRIT 43.8 % (42.0-54.0); HEMOGLOBIN 14.3 g/dL (13.5-17.5); IMMATURE GRANULOCYTES 0.3 % (0-5); LYMPHOCYTES 32.1 % (15-50); MCH 29.3 pg (26.0-34.0); MCHC 32.6 g/dL (31.0-37.0); MCV 89.8 fL (80.0-100.0); MEAN PLATELET VOLUME 9.3 fL (7.4-10.4); MONOCYTES 8.6 % (2-11); NEUTROPHILS 56.1 % (40-80); PLATELET COUNT 209 10x3/uL (130-400); RBC 4.88 10x6/uL (4.20-6.10); RDW 13.2 % (11.5-14.5); WBC 7.1 10x3/uL (4.8-10.8)
[2019-06-18 05:52] LABS: CALC OSMOLALITY 277 mosm/kg (275-300); CALCIUM 8.2 mg/dL (8.5-10.1); CARBON DIOXIDE 23.4 mmol/L (21.0-32.0); CHLORIDE - SERUM 107 mmol/L (98-107); CREATININE - SERUM 0.7 mg/dL (0.6-1.3); GLUCOSE 93 mg/dL (74-106); POTASSIUM - SERUM 3.5 mmol/L (3.5-5.1); SODIUM 140 mmol/L (136-145); eGFR NON AFRICAN AMERICAN > 90 mL/min (90-120)
[2019-06-18 06:10] LABS: UREA NITROGEN 9 mg/dL (7-18)
--- NOTE | 2019-06-18 07:30 | NUR ---
REPORT RECIEVED. PT LYING ON LEFT SIDE. COMPLAINS OF PAIN 10/10. PAIN MEDS ADMINISTERED. RR EVEN AND UNLABORED. NO DISTRESS NOTED. PT HAS A L UPPER ARM PIV INFUSNG NS @ 125. WILL CTM
[2019-06-18 08:00] VITALS: BP 152/105
[2019-06-18 11:36] VITALS: BP 160/99
--- NOTE | 2019-06-18 13:24 | NUR ---
UPON ADMIT, PATIENT HAS ALREADY HAD A FLU SHOT.
--- NOTE | 2019-06-18 15:11 | NUR ---
DC PAPERWORK GONE OVER AND SIGNED WITH PT. ALL QUESTIONS ANSWERED. PIV REMOVED, CATH TIP FULLY INTACT. ALL VALUBLES REMOVED FROM ROOM PT WHEELED SELF TO FRONT ENTRANCE TO MEET HIS SISTER.
--- NOTE | 2019-06-19 08:02 | MORECARE ---
CASE MANAGEMENT DISCHARGE SUMMARY PATIENT: SUKHDEEP BATRES UNIT: [id number] ADM DATE: 06/17/19 AGE: 23 : [birth year] SEX: M ROOM/BED: D.2113 AUTHOR: GRAYSON,DOC PHYSICIAN: REFERRING PHYSICIAN: GRAY CUNHA MD DATE OF SERVICE: 06/19/19 Discharge Plan Patient Name: SUKHDEEP BATRES Facility: [facility]:[place] : 1995 Planned Disposition: Home Anticipated Discharge Date: 06/18/19 Discharge Date: 06/18/2019 Expected LOS: 1 Initial Reviewer: [id number] Initial Review Date: 06/17/2019 Generated: 06/19/19 9:01 am Comments DCP- Discharge Planning Updated by [email or web address]: Jayce Albarran on 06/17/19 4:[address] Patient Name: SUKHDEEP BATRES Admission Status: ER Accout number: [id number] Admission Date: 06-17-2019 : 1995 Admission Diagnosis: Attending: GRAY CUNHA Current LOS: 1 Anticipated DC Date: 06-17-2019 Planned Disposition: Home Primary Insurance: MEDICARE A & B Discharge Planning Comments: ZIA RECEIVED CALL FROM BIJU BATRES, , WHO REPORTS TO BE PT'S FATHER; BIJU STATES THAT PT CAME IN ONE MONTH AGO TO THE HOSPITAL AND HAD A CATHETER PUT IN AND THE CATHETER IS LATEX, THE PT HAS LATEX ALLERGY AND IT NEEDS TO BE CHANGED. BIJU ASKED TO SPEAK TO "SOMEONE" ABOUT THIS. ZIA INFORMED BIJU THAT WILL ASK PT IF COMMUNICATION WITH HIM IS OK AND THEN WILL PROVIDE HIS CONTACT PHONE NUMBER TO NURSE PRACTITIONER. ZIA SPOKE TO PT IN ROOM WHO PROVIDED PERMISSION TO SPEAK TO BIJU BATRES, HIS FATHER, REGARDING HIS CARE AND TREATMENT. PROVIDED NUMBER OF BIJU BATRES TO JOHN FREEDMAN. PT REPORTS LIVING AT HOME WITH HIS PARENTS. PT HAS WHEELCHAIR, SHOWER CHAIR AND A HOSPITAL BED AT HOME WITH NO MEDICAL EQUIPMENT PROVIDER PREFERENCE. PT REPORTS HIS SURGERY IN [place] WAS CANCELLED DUE TO INFECTION AND THEY DID NOT PRESCRIBE ANY ANTIBIOTICS. PT HAS NOT FOLLOWED UP WITH HIS PRIMARY DOCTOR AND HAS BEEN USING EMERGENCY ROOM'S FOR [facility] CHANGES. PT STATES HIS UROLOGIST IN [place] IS ALWAYS "BOOKED" AND NOT ABLE TO SEE HIM. PT STATES IF HE IS DISCHARGED TODAY WITHOUT HAVING HIS CATHETER CHANGED, HE PLANS TO GO TO [place] TO HAVE IT DONE HE IS NOT GOING TO [facility] AND THE HOSPITALS IN [place] WILL NOT CHANGE IT. PT PLANS TO RETURN HOME WITH PARENTS AT DISCHARGE, PARENTS TO MUSEUM CURATOR FOR TRANSPORT HOME AT DISCHARGE. NURSING CHILD NUTRITION DIRECTOR SPOKE TO PT REGARDING PLAN OF CARE AND TREATMENT HISTORY. PT PLANS TO DISCHARGE HOME WITH PARENTS, HAS NO ANTICIPATED DISCHARGE NEEDS. FAMILY TO TRANSPORT HOME. CM TO FOLLOW AND ASSIST IF NEEDED. Hide And Skin Processing Worker: Jayce Albarran DCPIA - Discharge Planning Initial Assessment Updated by [email or web address]: Jayce Albarran on 06/17/19 4:56 pm * Is the patient Alert and Oriented? Yes * How many steps to enter\\exit or inside your home? RAMP * PCP DR. CLARK UROLOGIST- DR. Mcdonough" AT [facility] * Pharmacy [facility] * Preadmission Environment Home with Family * ADLs Independent * Equipment Hospital Bed Walker Wheelchair * Other Equipment NO MEDICAL EQUIPMENT PROVIDER PREFERENCE * List name and contact numbers for known caregivers / representatives who currently or will assist patient after discharge: BIJU BATRES, FATHER, * Verbal permission to speak to the caregivers and representatives has been obtained from the patient. Yes * Community resources currently utilized None * Please name any agencies selected above. NONE * Additional services required to return to the preadmission environment? No * Can the patient safely return to the preadmission environment? Yes * Has this patient been hospitalized within the prior 30 days at any hospital? No Coverage Notice Reviewer: [id number] Yohannes Rendon Notice Issued Date-Time: 06/17/2019 17:41 Notice Type: Medicare Outpatient Observation Notice Notice Delivered To: Patient Relationship to Patient: Planimeter Operator Name: Delivery Method: HAND - Hand Delivered Brisa Days: Prior Verbal Notification: Recipient Understood Notice: Yes Recipient Signature: Yes Med Rec Note Co-signed by Attending: Coverage Notice Comment: Last DP export: 06/17/19 4:11 p Patient Name: SUKHDEEP BATRES Page [id number] at 0802 All edits/amendments must be made on the electronic document DICTATION DATE: 06/19/19800 ROOF ASSEMBLER: DM 06/19/19800 RPT#: [id number] DC DATE:06/18/19 STATUS: DIS IN [facility] [address] [place] [address] END OF REPORT
== END 2019-06-18 15:17 | disposition home or self-care (01) ==
LOC: D.ER 21:40 → OBSVTIME 06-17 00:54 → D.M2 06-17 00:54
PROVIDERS: Family Medicine; ADMIT Internal Medicine Nephrology; ATTEND Internal Medicine Nephrology
DX: R10.9 Unspecified abdominal pain (principal); Q05.9 Spina bifida, unspecified; K75.9 Inflammatory liver disease, unspecified; R53.2 Functional quadriplegia; F17.203 Nicotine dependence unspecified, with withdrawal; T83.011A Breakdown (mechanical) of indwelling urethral catheter, initial encounter; N39.0 Urinary tract infection, site not specified; F17.200 Nicotine dependence, unspecified, uncomplicated

== ENCOUNTER 2020-02-18 19:30 | Emergency (ER) | payer MEDICARE ==
[~2020-02-18] VITALS: Ht 172.7 cm; Wt 72.7 kg
[2020-02-18 19:32] VITALS: Ht 172.7 cm; Wt 72.7 kg
[2020-02-18 21:12] VITALS: BP 144/102
[2020-02-19 12:46] LABS: BACTERIA MODERATE /hpf (NEGATIVE); BILIRUBIN NEGATIVE (NEGATIVE); EPITHELIAL CELLS 0-5 /hpf (0-5); GLUCOSE NEGATIVE (NEGATIVE); KETONE NEGATIVE (NEGATIVE); NITRITE NEGATIVE (NEGATIVE); RED CELLS - URINE >50 /hpf (0-5); SPECIFIC GRAVITY 1.015 (1.005-1.020)
[2020-02-19 12:48] LABS: AMORPHOUS SEDIMENT <1+ /lpf (NONE SEEN); GRANULAR CAST RARE /lpf (NONE SEEN)
== END 2020-02-18 21:13 | disposition home or self-care (01) ==
LOC: D.ER 19:30
PROVIDERS: Family Medicine
DX: T83.118A Breakdown (mechanical) of other urinary devices and implants, initial encounter (principal); Q05.9 Spina bifida, unspecified

== ENCOUNTER 2020-03-01 13:00 | Emergency (ER) | payer MEDICARE ==
[~2020-03-01] VITALS: Ht 160 cm; Wt 72.7 kg
[2020-03-01 13:03] VITALS: Ht 160 cm; Wt 72.7 kg
[2020-03-01] MEDS ORDERED: KEFLEX500 MG PO (13:09)
[2020-03-01 14:18] LABS: BASOPHILS 0.1 % (0-2); EOSINOPHILS 1.3 % (0-7); HEMATOCRIT 49.7 % (42.0-54.0); HEMOGLOBIN 16.2 g/dL (13.5-17.5); IMMATURE GRANULOCYTES 0.5 % (0-5); LYMPHOCYTES 28.8 % (15-50); MCHC 32.6 g/dL (31.0-37.0); MEAN PLATELET VOLUME 9.8 fL (7.4-10.4); MONOCYTES 7.7 % (2-11); NEUTROPHILS 61.6 % (40-80); PLATELET COUNT 241 10x3/uL (130-400); RDW 13.3 % (11.5-14.5); WBC 8.3 10x3/uL (4.8-10.8)
[2020-03-01 15:20] LABS: CALC OSMOLALITY 275 mosm/kg (275-300); CARBON DIOXIDE 27.6 mmol/L (21.0-32.0); CHLORIDE - SERUM 104 mmol/L (98-107); CREATININE - SERUM 0.8 mg/dL (0.6-1.3); GLUCOSE 83 mg/dL (74-106); POTASSIUM - SERUM 4.1 mmol/L (3.5-5.1); SODIUM 138 mmol/L (136-145); UREA NITROGEN 14 mg/dL (7-18); eGFR NON AFRICAN AMERICAN > 90 mL/min (90-120)
[2020-03-01 15:27] LABS: ALKALINE PHOSPHATASE 110 U/L (30-120); ALT (SGPT) 58 U/L (10-68); BILIRUBIN - TOTAL 0.51 mg/dL (0.2-1.3); LIPASE 112 U/L (73-393); PROTEIN - SERUM 7.6 g/dL (6.4-8.2)
[2020-03-01 16:07] LABS: BILIRUBIN NEGATIVE (NEGATIVE); GLUCOSE NEGATIVE (NEGATIVE); KETONE MODERATE mg/dL (NEGATIVE); NITRITE POSITIVE (NEGATIVE); SPECIFIC GRAVITY 1.015 (1.005-1.020); UROBILINOGEN NORMAL (NORMAL)
[2020-03-01 16:09] LABS: RED CELLS - URINE 25-50 /hpf (0-5); WHITE CELLS - URINE 25-50 /hpf (NEGATIVE)
[2020-03-01 16:10] LABS: BACTERIA FEW /hpf (NEGATIVE)
[2020-03-01] MEDS ORDERED: LEVOFLOXACIN500 MG PO (16:15)
[2020-03-01 17:15] VITALS: BP 154/113
== END 2020-03-01 17:15 | disposition home or self-care (01) ==
LOC: D.ER 13:00
PROVIDERS: Family Medicine
DX: N39.0 Urinary tract infection, site not specified (principal); Z46.6 Encounter for fitting and adjustment of urinary device; Q05.9 Spina bifida, unspecified

== ENCOUNTER 2020-05-12 16:57 | Emergency (ER) | payer MEDICARE ==
[~2020-05-12] VITALS: Ht 160 cm; Wt 70.5 kg
[~2020-05-12 16:57] MED LIST changes: +KEFLEX500 MG PO
[2020-05-12 17:10] VITALS: BP 151/95; Ht 160 cm; Wt 70.5 kg
[2020-05-12] MEDS ORDERED: MACROBID100 MG PO (18:39)
[2020-05-12] MEDS ORDERED: KEFLEX500 MG PO (18:39)
[2020-05-12 18:42] LABS: BASOPHILS 0.2 % (0-2); EOSINOPHILS 2.1 % (0-7); HEMATOCRIT 46.7 % (42.0-54.0); HEMOGLOBIN 15.3 g/dL (13.5-17.5); IMMATURE GRANULOCYTES 0.3 % (0-5); LYMPHOCYTES 19.6 % (15-50); MCH 29.9 pg (26.0-34.0); MCHC 32.8 g/dL (31.0-37.0); MCV 91.4 fL (80.0-100.0); MEAN PLATELET VOLUME 9.3 fL (7.4-10.4); MONOCYTES 7.6 % (2-11); NEUTROPHILS 70.2 % (40-80); PLATELET COUNT 282 10x3/uL (130-400); RBC 5.11 10x6/uL (4.20-6.10); RDW 13.3 % (11.5-14.5); WBC 8.7 10x3/uL (4.8-10.8)
[2020-05-12 18:45] LABS: NITRITE NEGATIVE (NEGATIVE)
[2020-05-12 18:46] LABS: BACTERIA MODERATE HPF (NONE SEEN); BILIRUBIN NEGATIVE (NEGATIVE); KETONE NEGATIVE (NEGATIVE); UROBILINOGEN NORMAL mg/dL (< 2); WHITE CELLS - URINE >50 HPF (0-1)
[2020-05-12 19:15] LABS: CALC OSMOLALITY 281 mosm/kg (275-300); CALCIUM 9.7 mg/dL (8.5-10.1); CARBON DIOXIDE 28.6 mmol/L (21.0-32.0); CHLORIDE - SERUM 105 mmol/L (98-107); CREATININE - SERUM 0.7 mg/dL (0.6-1.3); GLUCOSE 99 mg/dL (74-106); POTASSIUM - SERUM 3.9 mmol/L (3.5-5.1); SODIUM 140 mmol/L (136-145); UREA NITROGEN 21 mg/dL (7-18); eGFR NON AFRICAN AMERICAN > 90 mL/min (90-120)
[2020-05-12 19:20] LABS: ALBUMIN 4.1 g/dL (3.4-5.0); ALKALINE PHOSPHATASE 119 U/L (30-120); ALT (SGPT) 109 U/L (10-68); BILIRUBIN - TOTAL 0.53 mg/dL (0.2-1.3); PROTEIN - SERUM 8.5 g/dL (6.4-8.2)
== END 2020-05-12 20:04 | disposition home or self-care (01) ==
LOC: D.ER 16:57
PROVIDERS: Family Medicine
DX: T85.9XXA Unspecified complication of internal prosthetic device, implant and graft, initial encounter (principal); N39.0 Urinary tract infection, site not specified; R10.9 Unspecified abdominal pain

== ENCOUNTER → 2020-12-16 15:28 | Outpatient (CLI) | payer MEDICARE ==
[2020-05-12 17:10] VITALS: BMI 27.5
[2020-12-16 16:22] LABS: BACTERIA MANY HPF (NONE SEEN); BILIRUBIN NEGATIVE (NEGATIVE); KETONE NEGATIVE (NEGATIVE); NITRITE NEGATIVE (NEGATIVE); SQUAMOUS EPITHELIAL 0-5 HPF (0-4); UROBILINOGEN NORMAL mg/dL (< 2)
== END | disposition home or self-care (01) ==
LOC: D.LABREF 15:28
PROVIDERS: ATTEND Student in an Organized Health Care Education/Training Program
DX: N39.0 Urinary tract infection, site not specified (principal); A04.71 Enterocolitis due to Clostridium difficile, recurrent